=== PATIENT | female | born 1955 | race Caucasian/White ===

== ENCOUNTER 2018-12-31 00:35 | Emergency (ER) | payer MEDICARE ==
[~2018-12-31] VITALS: Ht 160 cm; Wt 45.4 kg
[~2018-12-31 00:35] MED LIST: ALBU0.632 IH; AMIT25TA9 PO; CALC-80 PO; CEFD300C3 PO; CLPD75T PO; DESV100T PO; E400C PO; HYDR-2890 PO; KRIL1CAP PO; LOVA20TA2 PO; METH4TAB PO; MULT-974 PO; OMEG1CAP51 PO; OXYC-272 PO; OXYC20TA14 PO; PREG300C PO; RT-COMBINH IH; TIOT18CA IH; TRAZ-144 PO; VARE1TAB17 PO; VITA80006 PO
[2018-12-31] MEDS ORDERED: morphine INJ 10 MG/ML 1ML (SYR OR VIAL) IVP ONE (01:00)
[2018-12-31] MEDS ORDERED: ONDANSETRON 4 MG/2 ML (SDV) Z0FRAN ONE (01:06)
[2018-12-31] MEDS ORDERED: ONDANSETRON 4 MG/2 ML (SDV) Z0FRAN IVP ONE ×2 (01:15→03:45)
[2018-12-31 01:29] LABS: HEMATOCRIT 41 % (35-52); HEMOGLOBIN 12.8 G/DL (11.5-16.0); MEAN CORPUSCULAR HEMOGLOBIN 28 PG (25-34); MEAN CORPUSCULAR HGB CONC 32 G/DL (32-36); MEAN CORPUSCULAR VOLUME 89 FL (80-99); PLATELET COUNT 298 10^3/uL (130-400); RED CELL DISTRIBUTION WIDTH 14.7 % (10.0-14.5); WHITE BLOOD COUNT 8.7 10^3/uL (4.3-11.0)
[2018-12-31 01:30] LABS: BASOPHILS % (AUTO) 0 % (0-10); EOSINOPHILS # (AUTO) 0.3 10^3/uL (0.0-0.3); EOSINOPHILS % (AUTO) 3 % (0-10); LYMPHOCYTES # (AUTO) 2.4 X 10^3 (1.0-4.0); LYMPHOCYTES % (AUTO) 27 % (12-44); MEAN PLATELET VOLUME 9.9 FL (7.4-10.4); MONOCYTES # (AUTO) 1.1 X 10^3 (0.0-1.0); MONOCYTES % (AUTO) 13 % (0-12); NEUTROPHILS # (AUTO) 4.9 X 10^3 (1.8-7.8); NEUTROPHILS % (AUTO) 57 % (42-75)
--- NOTE | 2018-12-31 01:35 | ED Headache ---
General Chief Complaint: Head/Cervical Problems Stated Complaint: HEADACHE Source: patient Exam Limitations: no limitations History of Present Illness Date Seen by Provider: Dec 31, 2018 Time Seen by Provider: 00:38 Initial Comments Here with report of headache over the last 2-3 days. Also has cough. Patient is a poor historian. Family reports that she's not been feeling well and complaining of a headache. Patient states the headaches frontal and persistent. She does smoke. She is very thin appearing. Does have nausea but denies vomiting. Feels weak and is irritable. Timing/Duration: increasing, other Severity/Quality: moderate, severe, pressure Location: frontal Prior Headaches/Recent Trauma: no recent headache/trauma Modifying Factors: improves with rest Associated Symptoms: confusion; No fever/chills, No loss of consciousness; jose alberto sea/vomiting; No nasal congestion, No stiff neck, No vision changes Allergies and Home Medications Allergies Coded Allergies: No Known Drug Allergies (Unverified , 07/25/13) Home Medications Albuterol Sulfate 0.63 Mg/3 Ml Vial.neb, 3 ML IH Q4H PRN for SHORTNESS OF BREATH, (Reported) PRN SHORTNESS OF BREATH Amitriptyline Hcl 25 Mg Tablet, 25 MG PO HS, (Reported) Calcium Carbonate/Vitamin D3 1 Each Tablet, 1 TAB PO DAILY, (Reported) Desvenlafaxine Succinate 100 Mg Tab.sr.24h, 100 MG PO HS, (Reported) Hydrocodone Bit/Acetaminophen 1 Each Tablet, 1 TAB PO Q4H PRN for PAIN, (Reported) PRN PAIN Ipratropium/Albuterol Sulfate 14.7 Gm Aer.w.adap, 2 PUFF IH Q6HR PRN for SHORTNESS OF BREATH, (Reported) PRN SHORTNESS OF BREATH Lovastatin 20 Mg Tablet, 20 MG PO HS, (Reported) Multivitamin 1 Each Tablet, 1 TAB PO DAILY, (Reported) Oxycodone Hcl 20 Mg Tablet, 20 MG PO Q6H PRN for PAIN, (Reported) PRN PAIN Oxycodone Hcl/Acetaminophen 1 Tab Tablet, 1-2 TAB PO Q4H Prescribed by: KWABENA ZHENG on 07/31/13 0430 Pregabalin 300 Mg Capsule, 300 MG PO BID, (Reported) Tiotropium [place] 18 Mcg Cap.w.dev, 1 PUFF IH DAILY, (Reported) Trazodone Hcl 50 Mg Tablet, 50 MG PO HS, (Reported) Varenicline Tartrate 1 Mg Tablet, 1 MG PO BID, (Reported) Vitamin A 8,000 Unit Capsule, 8,000 UNIT PO DAILY, (Reported) Vitamin E Acetate 400 Unit Capsule, 400 UNIT PO DAILY, (Reported) Patient Home Medication List Home Medication List Reviewed: Yes Review of Systems Review of Systems Constitutional: see HPI; No chills, No fever Eyes: No Symptoms Reported Ears, Nose, Mouth, Throat: no symptoms reported Respiratory: cough, short of breath Cardiovascular: No chest pain, No edema Gastrointestinal: No abdominal pain; nausea; No vomiting Genitourinary: no symptoms reported Musculoskeletal: no symptoms reported Skin: no symptoms reported Psychiatric/Neurological: See HPI, Anxiety, Headache All Other Systems Reviewed Negative Unless Noted: Yes Past Guisbbs-Svrmkg-Bzectm Hx Past Med/Social Hx: Reviewed Nursing Past Med/Soc Hx Patient Social History Alcohol Use: Denies Use Smoking Status: Current Everyday Smoker Immunizations Up To Date Tetanus Booster (TDap): More than 5yrs Date of Influenza Vaccine: Jul 22, 2013 Past Medical History Surgeries: Yes (Brain) Orthopedic Respiratory: Yes Asthma, Pneumonia, COPD Reproductive Disorders: No Musculoskeletal: Yes Arthritis, Spasms (restless leg) Family Medical History Reviewed Nursing Family Hx Cancer 09 SISTER (BREAST) Family history: Arthritis 03 FATHER 03 MOTHER Family history: Cardiovascular disease 03 FATHER 03 MOTHER Family history: Hypertension 03 MOTHER Heart disease 03 MOTHER History of - respiratory disease 03 FATHER 03 MOTHER 09 BROTHER 09 SISTER Myocardial infarction 03 FATHER 03 MOTHER No Family History of: Abdominal aortic aneurysm Alcoholism Congestive heart failure Dementia Family history: Allergy Family history: Alzheimer's disease Family history: Asthma Family history: Diabetes mellitus Family history: Glaucoma Family history: Thyroid disorder Hereditary disease History of - anemia Kidney disease Parkinson's disease Prostate cancer Psychotic disorder Seizure disorder Stroke Physical Exam Vital Signs Vital Signs - First Documented 12/31/18 00:39 Temp 99.3 Pulse 65 Resp 24 B/P (MAP) 149/64 (92) Pulse Ox 83 O2 Delivery Room Air Capillary Refill : Height, Weight, BMI Height: 5'2.00" Weight: 116lbs. oz. 52.279881ho; BMI Method: General Appearance: moderate distress, thin HEENT: PERRL/EOMI, pharynx normal Neck: non-tender, full range of motion, supple, normal inspection Cardiovascular: regular rate, rhythm, no murmur Respiratory: no accessory muscle use, crackles, rhonchi, wheezing, expiration Gastrointestinal: non tender, soft Back: normal inspection, no CVA tenderness, no vertebral tenderness Extremities: non-tender, normal inspection Psychiatric: oriented x 3, lethargic Crainal Nerves: normal hearing, normal speech, PERRL Coordination/Gait: normal gait Motor/Sensory: no motor deficit, no sensory deficit Skin: normal color, warm/dry Progress/Results/Core Measures Results/Orders Lab Results Laboratory Tests Test 12/31/18 00:53 12/31/18 00:55 12/31/18 00:59 12/31/18 01:27 Range/Units Blood Gas Puncture Site LEFT RADIAL Blood Gas Patient Temperature 99.1 Arterial Blood pH 7.32 *L 7.37-7.43 Arterial Blood Partial Pressure CO2 72 *H 35-45 MMHG Arterial Blood Partial Pressure O2 69 L 79-93 MMHG Arterial Blood HCO3 37 H 23-27 MMOL/L Arterial Blood Total CO2 39.3 H 21.0-31.0 MMOL/L Arterial Blood Base Excess 8.5 H -2.5-2.5 MMOL/L Hemant Test POSITIVE Blood Gas Ventilator Setting NO Blood Gas Inspired Oxygen 3 White Blood Count 8.7 4.3-11.0 10^3/uL Red Blood Count 4.53 4.35-5.85 10^6/uL Hemoglobin 12.8 11.5-16.0 G/DL Hematocrit 41 35-52 % Mean Corpuscular Volume 89 80-99 FL Mean Corpuscular Hemoglobin 28 25-34 PG Mean Corpuscular Hemoglobin Concent 32 32-36 G/DL Red Cell Distribution Width 14.7 H 10.0-14.5 % Platelet Count 298 130-400 10^3/uL Mean Platelet Volume 9.9 7.4-10.4 FL Neutrophils (%) (Auto) 57 42-75 % Lymphocytes (%) (Auto) 27 12-44 % Monocytes (%) (Auto) 13 H 0-12 % Eosinophils (%) (Auto) 3 0-10 % Basophils (%) (Auto) 0 0-10 % Neutrophils # (Auto) 4.9 1.8-7.8 X 10^3 Lymphocytes # (Auto) 2.4 1.0-4.0 X 10^3 Monocytes # (Auto) 1.1 H 0.0-1.0 X 10^3 Eosinophils # (Auto) 0.3 0.0-0.3 10^3/uL Basophils # (Auto) 0.0 0.0-0.1 10^3/uL Prothrombin Time 13.2 12.2-14.7 SEC INR Comment 1.0 0.8-1.4 Activated Partial Thromboplast Time 32 24-35 SEC Sodium Level 139 135-145 MMOL/L Potassium Level 4.2 3.6-5.0 MMOL/L Chloride Level 98 98-107 MMOL/L Carbon Dioxide Level 33 H 21-32 MMOL/L Anion Gap 8 5-14 MMOL/L Blood Urea Nitrogen 18 7-18 MG/DL Creatinine 0.74 0.60-1.30 MG/DL Estimat Glomerular Filtration Rate > 60 BUN/Creatinine Ratio 24 Glucose Level 138 H 70-105 MG/DL Calcium Level 9.3 8.5-10.1 MG/DL Corrected Calcium 9.1 8.5-10.1 MG/DL Total Bilirubin 0.2 0.1-1.0 MG/DL Aspartate Amino Transf (AST/SGOT) 18 5-34 U/L Alanine Aminotransferase (ALT/SGPT) 11 0-55 U/L Alkaline Phosphatase 75 40-136 U/L Troponin I < 0.30 <0.30 NG/ML Total Protein 7.3 6.4-8.2 GM/DL Albumin 4.2 3.2-4.5 GM/DL Lactic Acid Level 0.48 L 0.50-2.00 MMOL/L My Orders Orders - ALEX AC MD Arterial Blood Gas (12/31/18 00:53) Cbc With Automated Diff (12/31/18 00:53) Comprehensive Metabolic Panel (12/31/18 00:53) Lactic Acid Analyzer (12/31/18 00:53) Protime With Inr (12/31/18 00:53) Partial Thromboplastin Time (12/31/18 00:53) Ua Culture If Indicated (12/31/18 00:53) Blood Culture (12/31/18 00:53) Troponin I (12/31/18 00:53) Ct Head Wo-R/O Stroke (12/31/18 00:53) Chest 1 View Ap/Pa Only (12/31/18 00:53) Morphine Injection (Morphine Injection (12/31/18 01:00) Ekg Tracing (12/31/18 00:53) Monitor-Rhythm Ecg Trace Only (12/31/18 00:53) Ondansetron Injection (Zofran Injectio (12/31/18 01:15) Ondansetron Injection (Zofran Injectio (12/31/18 01:06) Fentanyl Injection (Sublimaze Injection (12/31/18 02:15) Albuterol/Ipra Inhalation Soln (Duoneb I (12/31/18 02:02) Albuterol Pre-Mix Nebs (Rt) (Proventil (12/31/18 02:49) Methylprednisolone Sod Succ (Solu-Medrol (12/31/18 02:49) Svn Small Volume Nebulizer (12/31/18 02:49) Ketorolac Injection (Toradol Injection) (12/31/18 03:31) Ondansetron Injection (Zofran Injectio (12/31/18 03:45) Oxycodone Immediate Rel Tablet (Oxyir Ta (12/31/18 03:45) Medications Given in ED Current Medications Medications Dose Ordered Sig/Inder Route Start Time Stop Time Status Last Admin Dose Admin Albuterol/ Ipratropium 3 ml STK-MED ONCE .ROUTE 12/31/18 02:02 12/31/18 02:10 DC 12/31/18 02:14 3 ML Fentanyl Citrate 50 mcg ONCE ONCE IVP 12/31/18 02:15 12/31/18 02:16 DC 12/31/18 02:14 50 MCG Morphine Sulfate 2 mg ONCE ONCE IVP 12/31/18 01:00 12/31/18 01:01 DC 12/31/18 01:17 2 MG Ondansetron HCl 4 mg ONCE ONCE IVP 12/31/18 01:15 12/31/18 01:16 DC 12/31/18 01:17 4 MG Ondansetron HCl 4 mg ONCE ONCE IVP 12/31/18 03:45 12/31/18 03:46 DC 12/31/18 03:35 4 MG Vital Signs/I&O 12/31/18 00:39 Temp 99.3 Pulse 65 Resp 24 B/P (MAP) 149/64 (92) Pulse Ox 83 O2 Delivery Room Air Progress Progress Note : Progress Note Seen and evaluated. IV, labs, chest x-ray, CT head, ABG ordered. O2 applied as initial O2 sat was 82% on room air. Initially applied it 4 L titrated to 3 L. Morphine 2 mg IV for headache and Zofran 4 mg IV for nausea ordered. Monitor patient. Duo neb ordered. 0325: We have initiated albuterol neb 2 and given Solu-Medrol 125 mg IV. Patient is supposed to be on oxygen at home and she was not wearing that tonight. She does continue to smoke. This seems to be more related to COPD exacerbation for which she is improving dramatically from. CT scan does not show any significant abnormalities other than the known previous history of brain surgery. She is reporting some nausea again. We will repeat Zofran and give Toradol. 0342: Patient admits that she has not been taking her long-term narcotic for the last 3 days because she's trying to get off of it. We will give oxycodone/acetaminophen 5/325 one tab by mouth. 2 tabs by mouth were ordered but she only wanted to do one as she's tried to get off the narcotic. We did discuss do believe this is largely the cause of her nausea, vomiting and headache and she agrees. She does have a COPD exacerbation as well. We will treat that all outpatient. I did discuss with her about weaning her narcotic and she will talk to her doctor about that as well. Discharged home with return precautions. Patient and family verbalize understanding instructions and agreement with plan. Initial ECG Impression Date: Dec 31, 2018 Initial ECG Impression Time: 02:00 Initial ECG Rate: 68 Initial ECG Rhythm: Normal Sinus Initial ECG Comparisson: No Previous ECG Available Comment Sinus rhythm with normal axis. No evidence of ST elevation RI. Left atrial enlargement. No previous available for comparison. Interpreted by me. Diagnostic Imaging Diagonstic Imaging: Xray Plain Films/CT/US/NM/MRI: chest Comments Chronic lung disease but no acute findings. Reviewed: Reviewed by Me Departure Impression Primary Impression: COPD with acute exacerbation Additional Impressions: Headache Qualified Codes: G44.059 - Short lasting unilateral neuralgiform headache with conjunctival injection and tearing (SUNCT), not intractable Narcotic withdrawal Disposition: HOME, SELF-CARE Condition: Stable Departure-Patient Inst. Decision time for Depature: 03:53 Referrals: MATTHEW SON DO (PCP/Family) Primary Care Physician Patient Instructions: COPD Including Emphysema (DC), Headache, Adult (DC), Prescription Drug Withdrawal (DC) Add. Discharge Instructions: All discharge instructions reviewed with patient and/or family. Voiced understanding. Take medications as directed. You should slowly wean off of your narcotics. Continue albuterol nebulizer and/or inhaler as needed for breathing. You should quit smoking. Return for worse pain, fever, vomiting, weakness, breathing problems or other concerns as needed. Scripts Prednisone (Prednisone) 20 Mg Tab 40 MG PO DAILY, #8 TAB 0 Refills Prov: ALEX AC MD 12/31/18 Ondansetron (Ondansetron Odt) 4 Mg Tab.rapdis 4 MG PO Q6H PRN for NAUSEA/VOMITING, #12 TAB 0 Refills Prov: ALEX AC MD 12/31/18 ALEX AC MD Dec 31, 2018 01:35
[2018-12-31 01:41] LABS: SODIUM 139 MMOL/L (135-145)
[2018-12-31 01:42] LABS: ALANINE AMINOTRANSFERASE 11 U/L (0-55); ALBUMIN 4.2 GM/DL (3.2-4.5); ALKALINE PHOSPHATASE 75 U/L (40-136); BILIRUBIN,TOTAL 0.2 MG/DL (0.1-1.0); BUN/CREATININE RATIO 24; CALCIUM 9.3 MG/DL (8.5-10.1); CARBON DIOXIDE 33 MMOL/L (21-32); CHLORIDE 98 MMOL/L (98-107); CREATININE SERUM 0.74 MG/DL (0.60-1.30); GFR ESTIMATED > 60; GLUCOSE 138 MG/DL (70-105); POTASSIUM 4.2 MMOL/L (3.6-5.0); TOTAL PROTEIN 7.3 GM/DL (6.4-8.2)
[2018-12-31 01:52] LABS: PROTHROMBIN TIME PATIENT 13.2 SEC (12.2-14.7)
[2018-12-31] MEDS ORDERED: RT-ALBUTEROL/IPRATROPIUM 3 ML (DUONEB) VIAL ONE (02:02)
[2018-12-31] MEDS ORDERED: fentaNYL INJECTION 100 MCG/2 ML AMP IVP ONE (02:15)
[2018-12-31] MEDS ORDERED: methylPREDNISolone 125 MG (Solu-MEDROL) VIAL IV STA (02:49)
[2018-12-31] MEDS ORDERED: RT-ALBUTEROL SULF 2.5 MG/3 ML PRE-MIX VIAL INH STA (02:49)
[2018-12-31 02:59] LABS: ALLENS TEST POSITIVE; INSPIRED O2 3; PATIENT TEMP 99.1; VENTILATOR NO
[2018-12-31] MEDS ORDERED: KETOROLAC 30 MG/ML VIAL IVP STA (03:31)
[2018-12-31 03:48] LABS: ABG PH 7.34 (7.37-7.43)
[2018-12-31 03:49] LABS: ABG PCO2 66 MMHG (35-45); ABG PO2 148 MMHG (79-93)
[2018-12-31 03:50] LABS: ABG BASE EXCESS 7.7 MMOL/L (-2.5-2.5); ABG OXYGEN SATURATION 99 % (94-100); ABG TCO2 37.6 MMOL/L (21.0-31.0)
[2018-12-31] MEDS ORDERED: PRD20T PO (03:54)
[2018-12-31] MEDS ORDERED: ONDA4TAB11 PO (03:54)
[2018-12-31 04:19] VITALS: BP 144/59
--- NOTE | 2018-12-31 07:05 | Diagnostic Imaging Report ---
PROCEDURE: CT head wo r/o stroke. TECHNIQUE: Multiple contiguous axial images were obtained through the brain without the use of intravenous contrast. Auto Exposure Controls were utilized during the CT exam to meet ALARA standards for radiation dose reduction. INDICATION: Headache and confusion. No [facility] report is available for comparison. FINDINGS: The ventricles and sulci are within normal limits. There is no hydrocephalus. There is no midline shift. There is no intracranial mass, hemorrhage or extra-axial fluid collection. Calvarium is intact. Sinuses and mastoid air cells are clear apart from minimal mucosal thickening in the left maxillary sinus. There is no CT evidence of a transcortical infarct. There has been previous right frontal craniotomy. IMPRESSION: No acute intracranial abnormality Mild left maxillary sinus disease Dictated by: Dictated on workstation # [id number]
--- NOTE | 2018-12-31 08:10 | Diagnostic Imaging Report ---
EXAMINATION: Chest radiograph, portable AP view. DATE: December 31, 2018 at 0128 hours. INDICATION: 63-year-old female, shortness of breath. Decreased oxygen saturations. COMPARISON: None. FINDINGS: Heart size is within normal limits. There is no identified pneumothorax. There is no large pleural effusion. There are streaky bilateral parahilar opacities. Comparison imaging is not available to assess for potential stability. There is partially imaged cervical spine hardware. IMPRESSION: 1. Bilateral streaky parahilar opacities of uncertain chronicity given lack of comparison imaging. Central pulmonary edema, atypical infection, or potentially chronic changes would be considered. Dictated by: Dictated on workstation # [id number]
== END 2018-12-31 04:19 | disposition home or self-care (01) ==
LOC: EDUNIT# 00:35 → ER FS 00:37
DX: J44.1 Chronic obstructive pulmonary disease with (acute) exacerbation (principal); R51 Headache; F11.23 Opioid dependence with withdrawal; J45.909 Unspecified asthma, uncomplicated; F17.200 Nicotine dependence, unspecified, uncomplicated; Z80.3 Family history of malignant neoplasm of breast; Z82.49 Family history of ischemic heart disease and other diseases of the circulatory system
CPT/HCPCS: 36415; 70450; 71045; 80053; 82805; 83605; 84484; 85025; 85610; 85730; 87040; 93005; 93041; 94640

== ENCOUNTER 2019-08-02 21:18 | Inpatient (IN) | payer MEDICARE ==
[~2019-08-02] VITALS: Ht 157 cm; Wt 46.5 kg
[~2019-08-02 21:18] MED LIST changes: +ONDA4TAB11 PO; +PRD20T PO
--- OUTSIDE RECORDS SUMMARY | 2019-08-02 21:23 | XMS REPORT | Continuity of Care Document ---
Author Organization Unknown Address Unknown Phone Unavailable Allergies Active Description Code Type Severity Reaction Onset Reported/Identified Relationship to Patient Clinical Status Yes No Known Drug Allergies [id number] Drug Allergy Unknown N/A 07/25/2013 Medications There is no data. Problems Date Dx Coded Attending Type Code Diagnosis Diagnosed By 12/31/2018 ALEX AC MD Ot F11.23 OPIOID DEPENDENCE WITH WITHDRAWAL 12/31/2018 ALEX AC MD Ot F17.200 NICOTINE DEPENDENCE, UNSPECIFIED, UNCOMP 12/31/2018 ALEX AC MD Ot J44.1 CHRONIC OBSTRUCTIVE PULMONARY DISEASE W 12/31/2018 ALEX AC MD Ot J45.909 UNSPECIFIED ASTHMA, UNCOMPLICATED 12/31/2018 ALEX AC MD Ot R51 HEADACHE 12/31/2018 ALEX CA MD Ot Z80.3 FAMILY HISTORY OF MALIGNANT NEOPLASM OF 12/31/2018 ALEX AC MD Ot Z82.49 FAMILY HX OF ISCHEM HEART DIS AND OTH DI 01/03/2019 ALEX AC MD Ot F11.23 OPIOID DEPENDENCE WITH WITHDRAWAL 01/03/2019 ALEX AC MD Ot F17.200 NICOTINE DEPENDENCE, UNSPECIFIED, UNCOMP 01/03/2019 ALEX AC MD Ot J44.1 CHRONIC OBSTRUCTIVE PULMONARY DISEASE W 01/03/2019 ALEX AC MD Ot J45.909 UNSPECIFIED ASTHMA, UNCOMPLICATED 01/03/2019 ALEX AC MD Ot R51 HEADACHE 01/03/2019 ALEX AC MD Ot Z80.3 FAMILY HISTORY OF MALIGNANT NEOPLASM OF 01/03/2019 ALEX AC MD Ot Z82.49 FAMILY HX OF ISCHEM HEART DIS AND OTH DI Procedures There is no data. Results Test Result Range Arterial blood gas measurement - 9 00:53 Blood pCO2 66 mm[Hg] 35-45 Blood pO2 148 mm[Hg] 79-93 Arterial blood bicarbonate measurement (moles/volume) 36 mmol/L 23-27 Arterial blood base excess by calculation 7.7 mmol /L -2.5-2.5 Arterial blood oxygen saturation measurement 99 % 94-100 * Inhaled oxygen flow rate 3 NRG Arterial blood pH measurement with patient temperature correction 7.34 7.37-7.43 Arterial blood carbon dioxide, total measurement (mole s/volume) 37.6 mmol/L 21.0-31.0 Body site rt radial NRG Assessment of wrist artery patency prior to arterial p uncture POSITIVE NRG Setting of ventilation mode NO NR G Measurement of body temperature 99.1 NRG Bacterial blood culture - 12/31/18 00:53 Bacterial blood culture NG NRG Complete blood count (CBC) with automate d white blood cell (WBC) differential - 12/31/18 00:55 Blood leukocytes automated count (number/volume) 8.7 10*3/uL 4.3-11.0 Blood erythrocytes automated count (number/volume) 4.53 10*6/uL 4.35-5.85 Venous blood hemoglobin measurement (mass/volume) 12.8 g/dL 11.5-16.0 Blood hematocrit (volume fraction) 41 % 35-52 Automated erythrocyte mean corpuscular volume 89 [ foz_us] 80-99 Automated erythrocyte mean corpuscular h emoglobin (mass per erythrocyte) 28 pg 25-34 Automated erythrocyte mean corpuscular h emoglobin concentration measurement (mass/volume) 32 g/dL 32-36 Automated erythrocyte distribution width ratio 14. 7 % 10.0- 14.5 Automated blood platelet count (count/volume) 298 10*3/uL 130-400 Automated blood platelet mean volume measurement 9.9 [foz_us] 7.4-10.4 Automated blood neutrophils/100 leukocytes 57 % 42-75 Automated blood lymphocytes/100 leukocytes 27 % 12-44 Blood monocytes/100 leukocytes 13 % 0-12 Automated blood eosinophils/100 leukocytes 3 % 0-10 Automated blood basophils/100 leukocytes 0 % 0-10 Blood neutrophils automated count (number/volume) 4.9 10*3 1.8-7.8 Blood lymphocytes automated count (number/volume) 2.4 10*3 1.0-4.0 Blood monocytes automated count (number/volume) 1. 1 10*3 0.0-1.0 Automated eosinophil count 0.3 10*3/uL 0 .0-0.3 Automated blood basophil count (count/volume) 0.0 10*3/uL 0.0-0.1 Comprehensive metabolic panel - 12/31/18 00:59 Serum or plasma sodium measurement (moles/volume) 139 mmol/L 135-145 Serum or plasma potassium measurement (moles/volume) 4.2 mmol/L 3.6-5.0 Serum or plasma chloride measurement (moles/volume) 98 mmol/L 98-107 Carbon dioxide 33 mmol/L 21-32 Serum or plasma anion gap determination (moles/volume) 8 mmol/L 5-14 Serum or plasma urea nitrogen measurement (mass/volume ) 18 mg/dL 7-18 Serum or plasma creatinine measurement (mass/volume) 0.74 mg/dL 0.60-1.30 Serum or plasma urea nitrogen/creatinine mass ratio 24 NRG Serum or plasma creatinine measurement w ith calculation of estimated glomerular filtration rate > NRG Serum or plasma glucose measurement (mass/volume) 138 mg/dL 70-105 Serum or plasma calcium measurement (mass/volume) 9.3 mg/dL 8.5-10.1 Serum or plasma total bilirubin measurement (mass/volu me) 0.2 mg/dL 0.1-1.0 Serum or plasma alkaline phosphatase rob surement (enzymatic activity/volume) 75 U/L 40-136 Serum or plasma aspartate aminotransfera se measurement (enzymatic activity/volume) 18 U/L 5-34 Serum or plasma alanine aminotransferase measurement (enzymatic activity/volume) 11 U/L 0-55 Serum or plasma protein measurement (mass/volume) 7.3 g/dL 6.4-8.2 Serum or plasma albumin measurement (mass/volume) 4.2 g/dL 3.2-4.5 CALCIUM CORRECTED 9.1 mg/dL 8.5-10.1 Serum or plasma troponin i.cardiac measu rement (mass/volume) - 12/31/18 00:59 Serum or plasma troponin i.cardiac measurement (mass/v olume) < ng/mL <0.30 PT panel in platelet poor plasma by coag ulation assay - 12/31/18 00:59 Prothrombin time (PT) in platelet poor plasma by coagu lation assay 13.2 s 12.2-14.7 INR in platelet poor plasma or blood by coagulation as say 1.0 0.8-1.4 Activated partial thromboplastin time (a PTT) in platelet poor plasma bycoagulation assay - 12/31/18 00:59 Activated partial thromboplastin time (a PTT) in platelet poor plasma bycoagulation assay 32 s 24-35 Bacterial blood culture - 12/31/18 01:07 Bacterial blood culture NG NRG Blood lactic acid measurement (moles/vol ume) - 12/31/18 01:27 Blood lactic acid measurement (moles/volume) 0.48 mmol/L 0.50-2.00 Encounters ACCT No. Visit Date/Time Discharge Status Pt. Type Provider Facility Loc./Unit Complaint [id number] 12/31/2018 00:37:00 019 04:19:00 DIS Emergency OSORIO COLLINS, ALEX Mccullough [facility] ER FS HEADACHE [id number] 07/30/2013 10:15:00 014 13:10:00 DIS Inpatient [id number] 07/25/2013 09:11:00 014 23:59:59 CLS Outpatient [id number] 06/26/2013 12:19:00 014 23:59:59 CLS Outpatient
--- NOTE | 2019-08-02 21:30 | ED General ---
General Chief Complaint: Neurological Problems Stated Complaint: SEIZURE Source of Information: Patient, EMS History of Present Illness Date Seen by Provider: Aug 02, 2019 Time Seen by Provider: 21:20 Initial Comments 64-year-old female brought in because she "doesn't feel good" and feels like her coordination is off. He is reports that she had "seizure-like activity" meaning she had some shaking at home. Patient has chronic cough. Patient does not expand on her symptoms as had a "she just doesn't feel good" patient has a chronic cough. Patient does have a history of COPD. Allergies and Home Medications Allergies Coded Allergies: No Known Drug Allergies (Unverified , 07/25/13) Home Medications Albuterol Sulfate 0.63 Mg/3 Ml Vial.neb, 3 ML IH Q4H PRN for SHORTNESS OF BREATH, (Reported) PRN SHORTNESS OF BREATH Amitriptyline Hcl 25 Mg Tablet, 25 MG PO HS, (Reported) Calcium Carbonate/Vitamin D3 1 Each Tablet, 1 TAB PO DAILY, (Reported) Desvenlafaxine Succinate 100 Mg Tab.sr.24h, 100 MG PO HS, (Reported) Hydrocodone Bit/Acetaminophen 1 Each Tablet, 1 TAB PO Q4H PRN for PAIN, (Reported) PRN PAIN Ipratropium/Albuterol Sulfate 14.7 Gm Aer.w.adap, 2 PUFF IH Q6HR PRN for SHORTNESS OF BREATH, (Reported) PRN SHORTNESS OF BREATH Lovastatin 20 Mg Tablet, 20 MG PO HS, (Reported) Multivitamin 1 Each Tablet, 1 TAB PO DAILY, (Reported) Ondansetron 4 Mg Tab.rapdis, 4 MG PO Q6H PRN for NAUSEA/VOMITING Prescribed by: ALEX AC on 12/31/18353 Oxycodone Hcl 20 Mg Tablet, 20 MG PO Q6H PRN for PAIN, (Reported) PRN PAIN Oxycodone Hcl/Acetaminophen 1 Tab Tablet, 1-2 TAB PO Q4H Prescribed by: KWABENA ZHENG on 07/31/13 043 Prednisone 20 Mg Tab, 40 MG PO DAILY Prescribed by: ALEX AC on 12/31/18353 Pregabalin 300 Mg Capsule, 300 MG PO BID, (Reported) Tiotropium [place] 18 Mcg Cap.w.dev, 1 PUFF IH DAILY, (Reported) Trazodone Hcl 50 Mg Tablet, 50 MG PO HS, (Reported) Varenicline Tartrate 1 Mg Tablet, 1 MG PO BID, (Reported) Vitamin A 8,000 Unit Capsule, 8,000 UNIT PO DAILY, (Reported) Vitamin E Acetate 400 Unit Capsule, 400 UNIT PO DAILY, (Reported) Patient Home Medication List Home Medication List Reviewed: Yes Review of Systems Review of Systems Constitutional: see HPI, malaise Respiratory: cough Cardiovascular: no symptoms reported Gastrointestinal: no symptoms reported Genitourinary: no symptoms reported Psychiatric/Neurological: See HPI Past Nvoixre-Mozomq-Pyfhut Hx Past Med/Social Hx: Reviewed Nursing Past Med/Soc Hx Patient Social History Type Used: Cigarettes Physical Abuse: No Sexual Abuse: No Mistreated: No Fear: No Immunizations Up To Date Tetanus Booster (TDap): More than 5yrs Date of Influenza Vaccine: Jul 22, 2013 Past Medical History Surgeries: Yes (Brain) Orthopedic Respiratory: Yes Asthma, Pneumonia, COPD Cardiac: Yes (WAS TOLD SHE HAD A HEART MURMUR ONE TIME SEVERAL YRS AGO, ) 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) Reproductive Disorders: No Gastrointestinal: No Musculoskeletal: Yes Arthritis, Spasms Endocrine: No Cancer: No Psychosocial: No Integumentary: No Blood Disorders: No Family Medical History Cancer 09 SISTER (BREAST) Family history: Arthritis 03 FATHER 03 MOTHER Family history: Cardiovascular disease 03 FATHER 03 MOTHER Family history: Hypertension 03 MOTHER Heart disease 03 MOTHER History of - respiratory disease 03 FATHER 03 MOTHER 09 BROTHER 09 SISTER Myocardial infarction 03 FATHER 03 MOTHER No Family History of: Abdominal aortic aneurysm Alcoholism Congestive heart failure Dementia Family history: Allergy Family history: Alzheimer's disease Family history: Asthma Family history: Diabetes mellitus Family history: Glaucoma Family history: Thyroid disorder Hereditary disease History of - anemia Kidney disease Parkinson's disease Prostate cancer Psychotic disorder Seizure disorder Stroke Physical Exam Vital Signs Vital Signs - First Documented 08/02/19 21:21 Temp 37.0 Pulse 123 Resp 17 B/P (MAP) 121/72 (88) O2 Delivery Room Air Capillary Refill : Height, Weight, BMI Height: 5'3.00" Weight: 100lbs. 0oz. [id number]; BMI Method:Stated General Appearance: No Apparent Distress, Cachetic Respiratory: Lungs Clear, Normal Breath Sounds Cardiovascular: No Edema, Tachycardia Gastrointestinal: Non Tender, Soft Neurologic/Psychiatric: Alert, Oriented x3, No Motor/Sensory Deficits, cat tender II- XII Norm as Tested Skin: Normal Color, Warm/Dry Progress/Results/Core Measures Suspected Sepsis SIRS Temperature: Pulse: Respiratory Rate: Laboratory Tests 08/02/19 21:35: White Blood Count 14.7H Blood Pressure / Mean: Laboratory Tests 08/02/19 21:35: Creatinine 0.76, Platelet Count 401H, Total Bilirubin < 0.2 Results/Orders Lab Results Laboratory Tests Test 08/02/19 19:35 08/02/19 21:35 Range/Units White Blood Count 14.7 H 4.3-11.0 10^3/uL Red Blood Count 4.52 4.35-5.85 10^6/uL Hemoglobin 13.9 11.5-16.0 G/DL Hematocrit 43 35-52 % Mean Corpuscular Volume 95 80-99 FL Mean Corpuscular Hemoglobin 31 25-34 PG Mean Corpuscular Hemoglobin Concent 32 32-36 G/DL Red Cell Distribution Width 13.0 10.0-14.5 % Platelet Count 401 H 130-400 10^3/uL Mean Platelet Volume 8.7 7.4-10.4 FL Neutrophils (%) (Auto) 64 42-75 % Lymphocytes (%) (Auto) 24 12-44 % Monocytes (%) (Auto) 10 0-12 % Eosinophils (%) (Auto) 1 0-10 % Basophils (%) (Auto) 1 0-10 % Neutrophils # (Auto) 9.4 H 1.8-7.8 X 10^3 Lymphocytes # (Auto) 3.6 1.0-4.0 X 10^3 Monocytes # (Auto) 1.4 H 0.0-1.0 X 10^3 Eosinophils # (Auto) 0.2 0.0-0.3 10^3/uL Basophils # (Auto) 0.1 0.0-0.1 10^3/uL Neutrophils % (Manual) 67 % Lymphocytes % (Manual) 9 % Monocytes % (Manual) 14 % Eosinophils % (Manual) 2 % Reactive Lymphocytes 8 % Toxic Granulation 2+ Clumped Platelets SLIGHT Poikilocytosis SLIGHT Erythrocyte Sedimentation Rate 9 0-30 MM/HR D-Dimer 0.44 0.00-0.49 UG/ML Sodium Level 139 135-145 MMOL/L Potassium Level 4.8 3.6-5.0 MMOL/L Chloride Level 95 L 98-107 MMOL/L Carbon Dioxide Level 27 21-32 MMOL/L Anion Gap 17 H 5-14 MMOL/L Blood Urea Nitrogen 24 H 7-18 MG/DL Creatinine 0.76 0.60-1.30 MG/DL Estimat Glomerular Filtration Rate > 60 BUN/Creatinine Ratio 32 Glucose Level 157 H 70-105 MG/DL Calcium Level 9.6 8.5-10.1 MG/DL Corrected Calcium 9.4 8.5-10.1 MG/DL Total Bilirubin < 0.2 0.1-1.0 MG/DL Direct Bilirubin 0.2 0.0-0.3 MG/DL Indirect Bilirubin 0.0 MG/DL Aspartate Amino Transf (AST/SGOT) 22 5-34 U/L Alanine Aminotransferase (ALT/SGPT) 22 0-55 U/L Alkaline Phosphatase 60 40-136 U/L Troponin I < 0.30 <0.30 NG/ML Total Protein 7.3 6.4-8.2 GM/DL Albumin 4.3 3.2-4.5 GM/DL Serum Alcohol < 10 <10 MG/DL My Orders Orders - LEON,KEN L DO Ct Head Wo-R/O Stroke (08/02/19 21:30) Chest 1 View Ap/Pa Only (08/02/19 21:30) Cbc With Automated Diff (08/02/19 21:30) Comprehensive Metabolic Panel (08/02/19 21:30) Ferritin (08/02/19 21:30) Fibrin Degradation Products (08/02/19 21:30) Erythrocyte Sedimentation Rate (08/02/19 21:30) Ekg Tracing (08/02/19 21:30) Influenza A And B Antigens (08/02/19 21:30) Liver Panel (08/02/19 21:30) Lactic Acid Analyzer (08/02/19 21:30) Troponin I Fs (08/02/19 21:30) Drug Screen Stat (Urine) (08/02/19 21:40) Ua Culture If Indicated (08/02/19 21:40) Ed Iv/Invasive Line Start (08/02/19 21:40) Ns Iv 500 Ml (Sodium Chloride 0.9%) (08/02/19 21:40) Alcohol (08/02/19 21:41) Manual Differential (08/02/19 21:35) Hs C Reactive Protein (08/02/19 19:35) LDH (08/02/19 19:35) Procalcitonin (Pct) (08/02/19 19:35) Diltiazem Injection (Cardizem Injection) (08/02/19 22:00) Diltiazem Injection (Cardizem Injection) (08/02/19 22:15) Diltiazem Drip Pre-Mix (Cardizem Drip Pr (08/02/19 22:45) Enoxaparin Injection (Lovenox Injection) (08/02/19 22:45) Medications Given in ED Current Medications Medications Dose Ordered Sig/Inder Route Start Time Stop Time Status Last Admin Dose Admin Diltiazem HCl 10 mg ONCE ONCE IVP 08/02/19 22:00 08/02/19 22:02 DC 08/02/19 22:04 10 MG Diltiazem HCl 10 mg ONCE ONCE IVP 08/02/19 22:15 08/02/19 22:16 DC 08/02/19 22:18 10 MG Sodium Chloride 500 ml @ 0 mls/hr Q0M ONCE IV 08/02/19 21:40 08/02/19 21:42 DC 08/02/19 22:03 999 MLS/HR Vital Signs/I&O 08/02/19 21:21 Temp 37.0 Pulse 123 Resp 17 B/P (MAP) 121/72 (88) O2 Delivery Room Air Capillary Refill : Progress Note : Time: 22:42 Progress Note 64 she'll female has new onset atrial fib. Patient was given Cardizem 10 mg IV push 2 then started on a Cardizem drip. I discussed with both Dr. Cunningham and Dr. Mancia. We will transferred patient to [facility] for admission to the ICU. Patient will be transferred on a Cardizem drip with Lovenox 40 mg subcutaneous twice a day. Patient is stable upon transfer. Patient did clarify that she uses oxygen 3 L at night when she is sleeping due to her chronic COPD. ECG Initial ECG Impression Date: Aug 02, 2019 Initial ECG Impression Time: 21:48 Initial ECG Rhythm: A Fib/Flutter Initial ECG Impression: Atrial Fibrillation w/RVR Comment st depression diffuse Diagnostic Imaging Diagonstic Imaging: Xray, CT Comments [place], [place] NAME: ALBA VIERA [facility] REC#: [id number] PT STATUS: REG ER : 1955 PHYSICIAN: KEN LEON DO ADMIT DATE: 08/02/19/ER FS Draft Date of Exam:08/02/19 CT HEAD WO-R/O STROKE PROCEDURE: CT head w/o r/o stroke. TECHNIQUE: Multiple contiguous axial images were obtained through the brain without the use of intravenous contrast. Auto Exposure Controls were utilized during the CT exam to meet ALARA standards for radiation dose reduction. INDICATION: Seizure. COMPARISON: 12/31/2018. FINDINGS: No large acute territorial ischemia, mass or hemorrhage. Old area of encephalomalacia is seen in the right parietal region. No midline shift or mass effect. Decreased attenuation is seen in the periventricular and subcortical white matter. The ventricles and cortical sulci are mildly prominent. The basilar cisterns are patent and unremarkable. Prior craniotomy changes are seen in the right frontal region. The visualized paranasal sinuses are clear. IMPRESSION: 1. No large acute territorial ischemia, mass, or hemorrhage. 2. 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 3. Chronic microvascular disease with mild generalized parenchymal volume loss. NAME: ALBA VIERA [facility] REC#: [id number] PT STATUS: REG ER : 1955 PHYSICIAN: KEN LEON DO ADMIT DATE: 08/02/19/ER FS Draft Date of Exam:08/02/19 CHEST 1 VIEW AP/PA ONLY EXAMINATION: Chest 1 view. HISTORY: Fever. Nausea and vomiting. COMPARISON: Chest radiograph on 12/31/2018. FINDINGS: The lung volumes are normal. Prominent interstitial markings are again seen in the perihilar and basilar regions. No focal consolidation is seen. No large pleural effusion or pneumothorax is seen. The cardiomediastinal silhouette is normal in size and contour. No acute osseous abnormality is seen. IMPRESSION: Stable appearance of prominent interstitial markings in the perihilar and basilar regions. These are favored to represent chronic fibrotic changes. Superimposed edema or infection is not completely excluded. No focal consolidation. Departure Communication (Admissions) Time/Spoke to Admitting Phy: 22:35 Time/Spoke to Consulting Phy: 22:37 Impression Primary Impression: Atrial fibrillation with RVR Disposition: ADMITTED INPATIENT Condition: Stable Admissions Decision to Admit Reason: Admit from ER (General) Decision to Admit/Date: Aug 02, 2019 Time/Decision to Admit Time: 22:33 Departure-Patient Inst. Referrals: MATTHEW SON DO (PCP/Family) Primary Care Physician KEN LEON DO Aug 02, 2019 21:30
[2019-08-02] MEDS ORDERED: NS IV 500 ML 500 ML IV ONE (21:40)
[2019-08-02 21:45] LABS: BASOPHILS # (AUTO) 0.1 10^3/uL (0.0-0.1); BASOPHILS % (AUTO) 1 % (0-10); EOSINOPHILS # (AUTO) 0.2 10^3/uL (0.0-0.3); EOSINOPHILS % (AUTO) 1 % (0-10); HEMATOCRIT 43 % (35-52); HEMOGLOBIN 13.9 G/DL (11.5-16.0); LYMPHOCYTES # (AUTO) 3.6 X 10^3 (1.0-4.0); LYMPHOCYTES % (AUTO) 24 % (12-44); MEAN CORPUSCULAR HEMOGLOBIN 31 PG (25-34); MEAN CORPUSCULAR HGB CONC 32 G/DL (32-36); MEAN CORPUSCULAR VOLUME 95 FL (80-99); MEAN PLATELET VOLUME 8.7 FL (7.4-10.4); MONOCYTES # (AUTO) 1.4 X 10^3 (0.0-1.0); MONOCYTES % (AUTO) 10 % (0-12); NEUTROPHILS # (AUTO) 9.4 X 10^3 (1.8-7.8); NEUTROPHILS % (AUTO) 64 % (42-75); PLATELET COUNT 401 10^3/uL (130-400); WHITE BLOOD COUNT 14.7 10^3/uL (4.3-11.0)
--- NOTE | 2019-08-02 21:59 | Diagnostic Imaging Report ---
PROCEDURE: CT head w/o r/o stroke. TECHNIQUE: Multiple contiguous axial images were obtained through the brain without the use of intravenous contrast. Auto Exposure Controls were utilized during the CT exam to meet ALARA standards for radiation dose reduction. INDICATION: Seizure. COMPARISON: 12/31/2018. FINDINGS: No large acute territorial ischemia, mass or hemorrhage. Old area of encephalomalacia is seen in the right parietal region. No midline shift or mass effect. Decreased attenuation is seen in the periventricular and subcortical white matter. The ventricles and cortical sulci are mildly prominent. The basilar cisterns are patent and unremarkable. Prior craniotomy changes are seen in the right frontal region. The visualized paranasal sinuses are clear. IMPRESSION: 1. No large acute territorial ischemia, mass, or hemorrhage. 2. 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 3. Chronic microvascular disease with mild generalized parenchymal volume loss. Dictated by: Dictated on workstation # [id number]
--- NOTE | 2019-08-02 22:00 | Diagnostic Imaging Report ---
EXAMINATION: Chest 1 view. HISTORY: Fever. Nausea and vomiting. COMPARISON: Chest radiograph on 12/31/2018. FINDINGS: The lung volumes are normal. Prominent interstitial markings are again seen in the perihilar and basilar regions. No focal consolidation is seen. No large pleural effusion or pneumothorax is seen. The cardiomediastinal silhouette is normal in size and contour. No acute osseous abnormality is seen. IMPRESSION: Stable appearance of prominent interstitial markings in the perihilar and basilar regions. These are favored to represent chronic fibrotic changes. Superimposed edema or infection is not completely excluded. No focal consolidation. Dictated by: Dictated on workstation # [id number]
[2019-08-02 22:03] LABS: ERYTHROCYTE SEDIMENTATION RATE 9 MM/HR (0-30)
[2019-08-02 22:10] LABS: EOSINOPHILS % (MANUAL) 2 %; LYMPHOCYTES % (MANUAL) 9 %; MONOCYTES % (MANUAL) 14 %; NEUTROPHILS % (MANUAL) 67 %; REACTIVE LYMPHOCYTES 8 %
[2019-08-02 22:11] LABS: PLATELET CLUMPS SLIGHT; POIKILOCYTOSIS SLIGHT
[2019-08-02 22:12] LABS: TOXIC GRANULATION/VACUOLAZATIO 2+
[2019-08-02 22:20] LABS: ALANINE AMINOTRANSFERASE 22 U/L (0-55); ALBUMIN 4.3 GM/DL (3.2-4.5); ALKALINE PHOSPHATASE 60 U/L (40-136); BILIRUBIN,DIRECT 0.2 MG/DL (0.0-0.3); BILIRUBIN,TOTAL < 0.2 MG/DL (0.1-1.0); BUN/CREATININE RATIO 32; CALCIUM 9.6 MG/DL (8.5-10.1); CARBON DIOXIDE 27 MMOL/L (21-32); CHLORIDE 95 MMOL/L (98-107); CREATININE SERUM 0.76 MG/DL (0.60-1.30); GFR ESTIMATED > 60; GLUCOSE 157 MG/DL (70-105); POTASSIUM 4.8 MMOL/L (3.6-5.0); SODIUM 139 MMOL/L (135-145); TOTAL PROTEIN 7.3 GM/DL (6.4-8.2)
[2019-08-02] MEDS ORDERED: dilTIAZem DRIP PRE-MIX 125 ML IV SCH (22:45)
[2019-08-02] MEDS ORDERED: ENOXAPARIN 40 MG/0.4 ML (LOVENOX) SYR SC ONE (22:45)
[2019-08-02 22:47] LABS: BILIRUBIN,URINE NEGATIVE (NEGATIVE); CLARITY,URINE CLEAR; COLOR,URINE YELLOW; GLUCOSE, URINE (UA) NEGATIVE (NEGATIVE); KETONES,URINE NEGATIVE (NEGATIVE); LEUKOCYTE ESTERASE ,URINE NEGATIVE (NEGATIVE); NITRITE,URINE NEGATIVE (NEGATIVE); PROTEIN,URINE 1+ (NEGATIVE); RBC,URINE RARE /HPF
[2019-08-02 22:48] LABS: BACTERIA,URINE FEW /HPF; GRANULAR CASTS,URINE 0-2 /LPF
[2019-08-02 22:51] LABS: AMPHETAMINE SCREEN, URINE NEGATIVE (NEGATIVE); BARBITURATE SCREEN URINE NEGATIVE (NEGATIVE); BENZODIAZEPINES SCREEN URINE NEGATIVE (NEGATIVE); CANNABINOID SCREEN, URINE NEGATIVE (NEGATIVE); COCAINE SCREEN URINE NEGATIVE (NEGATIVE); METHADONE STAT NEGATIVE (NEGATIVE); METHAMPHETAMINE SCREEN URINE S NEGATIVE (NEGATIVE); OPIATE SCREEN URINE NEGATIVE (NEGATIVE); OXYCODONE STAT POSITIVE (NEGATIVE); PROPOXYPHENE STAT NEGATIVE (NEGATIVE); TRICYCLIC ANTIDEPRESSANTS SCRE NEGATIVE (NEGATIVE)
--- OUTSIDE RECORDS SUMMARY | 2019-08-02 23:24 | XMS REPORT | Continuity of Care Document ---
Author Organization Unknown Address Unknown Phone Unavailable Allergies Active Description Code Type Severity Reaction Onset Reported/Identified Relationship to Patient Clinical Status Yes No Known Drug Allergies [id number] Drug Allergy Unknown N/A 07/25/2013 Medications There [...] AC MD Ot R51 HEADACHE 12/31/2018 ALEX AC MD Ot Z80.3 FAMILY HISTORY [...] lactic acid measurement (moles/volume) 0.48 mmol/L 0.50-2.00 Complete blood count (CBC) with automate d white blood cell (WBC) differential - 08/02/19 21:35 Blood leukocytes automated count (number/volume) 14.7 10*3/uL 4.3-11.0 Blood erythrocytes automated count (number/volume) 4.52 10*6/uL 4.35-5.85 Venous blood hemoglobin measurement (mass/volume) 13.9 g/dL 11.5-16.0 Blood hematocrit (volume fraction) 43 % 35-52 Automated erythrocyte mean corpuscular volume 95 [ foz_us] 80-99 Automated erythrocyte mean corpuscular h emoglobin (mass per erythrocyte) 31 pg 25-34 Automated erythrocyte mean corpuscular h emoglobin concentration measurement (mass/volume) 32 g/dL 32-36 Automated erythrocyte distribution width ratio 13. 0 % 10.0- 14.5 Automated blood platelet count (count/volume) 401 10*3/uL 130-400 Automated blood platelet mean volume measurement 8.7 [foz_us] 7.4-10.4 Automated blood neutrophils/100 leukocytes 64 % 42-75 Automated blood lymphocytes/100 leukocytes 24 % 12-44 Blood monocytes/100 leukocytes 10 % 0-12 Automated blood eosinophils/100 leukocytes 1 % 0-10 Automated blood basophils/100 leukocytes 1 % 0-10 Blood neutrophils automated count (number/volume) 9.4 10*3 1.8-7.8 Blood lymphocytes automated count (number/volume) 3.6 10*3 1.0-4.0 Blood monocytes automated count (number/volume) 1. 4 10*3 0.0-1.0 Automated eosinophil count 0.2 10*3/uL 0 .0-0.3 Automated blood basophil count (count/volume) 0.1 10*3/uL 0.0-0.1 Manual absolute plasma cell count - 0406/21 21:35 Blood monocytes/100 leukocytes 14 % NRG Manual blood segmented neutrophils/100 leukocytes 67 % NRG Manual blood lymphocytes/100 leukocytes 9 % NRG Manual eosinophils/100 leukocytes in nose 2 % NRG Blood lymphocytes variant/100 leukocytes 8 % NRG Blood toxic granules detection by light microscopy 2+ NRG Blood poikilocytosis detection by light microscopy SLIGHT NRG Blood platelet clump detection by light microscopy SLIGHT NRG Fibrin D-dimer FEU measurement in platel et poor plasma (mass/volume) - 08/02/19 21:35 Fibrin D-dimer FEU measurement in platelet poor plasma (mass/volume) 0.44 ug/mL 0.00-0.49 Erythrocyte sedimentation rate by vale gren method - 08/02/19 21:35 Erythrocyte sedimentation rate by westergren method 9 mm 0- 30 Comprehensive metabolic panel - 08/02/19 21:35 Serum or plasma sodium measurement (moles/volume) 139 mmol/L 135-145 Serum or plasma potassium measurement (moles/volume) 4.8 mmol/L 3.6-5.0 Serum or plasma chloride measurement (moles/volume) 95 mmol/L 98-107 Carbon dioxide 27 mmol/L 21-32 Serum or plasma anion gap determination (moles/volume) 17 mmol/L 5-14 Serum or plasma urea nitrogen measurement (mass/volume ) 24 mg/dL 7-18 Serum or plasma creatinine measurement (mass/volume) 0.76 mg/dL 0.60-1.30 Serum or plasma urea nitrogen/creatinine mass ratio 32 NRG Serum or plasma creatinine measurement w ith calculation of estimated glomerular filtration rate > NRG Serum or plasma glucose measurement (mass/volume) 157 mg/dL 70-105 Serum or plasma calcium measurement (mass/volume) 9.6 mg/dL 8.5-10.1 Serum or plasma total bilirubin measurement (mass/volu me) < mg/dL 0.1-1.0 Serum or plasma alkaline phosphatase rob surement (enzymatic activity/volume) 60 U/L 40-136 Serum or plasma aspartate aminotransfera se measurement (enzymatic activity/volume) 22 U/L 5-34 Serum or plasma alanine aminotransferase measurement (enzymatic activity/volume) 22 U/L 0-55 Serum or plasma protein measurement (mass/volume) 7.3 g/dL 6.4-8.2 Serum or plasma albumin measurement (mass/volume) 4.3 g/dL 3.2-4.5 CALCIUM CORRECTED 9.4 mg/dL 8.5-10.1 Liver function panel (serum or plasma al k phos, alb, total and direct bili, total protein, ALT, AST) - 08/02/19 21:35 Bilirubin direct 0.2 mg/dL 0.0-0.3 Serum or plasma indirect bilirubin measurement (mass/v olume) 0.0 mg/dL NRG TROPONIN I FS - 08/02/19 21:35 TROPONIN I FS < 0.30 <0.30 Serum or plasma ethanol measurement (mas s/volume) - 08/02/19 21:35 Serum or plasma ethanol measurement (mass/volume) < mg/dL <10 Complete urinalysis with reflex to cultu re - 08/02/19 22:34 Urine color determination YELLOW NRG Urine clarity determination CLEAR NR G Urine pH measurement by test strip 6.0 5-9 Specific gravity of urine by test strip >= 1.016-1.022 Urine protein assay by test strip, semi-quantitative 1+ NEGATIVE Urine glucose detection by automated test strip NE GATIVE NEGATIVE Erythrocytes detection in urine sediment by light micr oscopy NEGATIVE NEGATIVE Urine ketones detection by automated test strip NE GATIVE NEGATIVE Urine nitrite detection by test strip NEGATIVE NEGATIVE Urine total bilirubin detection by test strip NEGA TIVE NEGATIVE Urine urobilinogen measurement by automated test strip (mass/volume) 0.2 mg/dL < = 1.0 Urine leukocyte esterase detection by dipstick NEG ATIVE NEGATIVE Automated urine sediment erythrocyte cou nt by microscopy (number/high power field) RARE NRG Automated urine sediment leukocyte count by microscopy (number/high power field) [HPF] NRG Bacteria detection in urine sediment by light microsco py FEW NRG Squamous epithelial cells detection in u rine sediment by light microscopy 10-25 NRG Crystals detection in urine sediment by light microsco py NONE NRG Casts detection in urine sediment by light microscopy PRESENT NRG Mucus detection in urine sediment by light microscopy MODERATE NRG Complete urinalysis with reflex to culture YES NRG Hyaline casts detection in urine sediment by light ricarda roscopy 2-5 NRG Granular casts detection in urine sediment by light mi croscopy 0-2 NRG Urine drug screening test - 08/02/19 22: 34 Urine phencyclidine detection by screening method NEGATIVE NEGATIVE Urine benzodiazepines detection by screening method NEGATIVE NEGATIVE Urine cocaine detection NEGATIVE NEGATI VE Urine amphetamines detection by screening method N EGATIVE NEGATIVE Urine methamphetamine detection by screening method NEGATIVE NEGATIVE Urine cannabinoids detection by screening method N EGATIVE NEGATIVE Urine opiates detection by screening method NEGATI VE NEGATIVE Urine barbiturates detection NEGATIVE N EGATIVE Screening urine tricyclic antidepressants detection NEGATIVE NEGATIVE Urine methadone detection by screening method NEGA TIVE NEGATIVE Urine oxycodone detection POSITIVE NEGA TIVE Urine propoxyphene detection NEGATIVE N EGATIVE Encounters ACCT No. Visit Date/Time Discharge Status Pt. Type Provider Facility Loc./Unit Complaint [id number] 12/31/2018 00:37:00 04:19:00 DIS Emergency OSORIO COLLINS, ALEX Mccullough [facility] ER FS HEADACHE [id number] 07/30/2013 10:15:00 13:10:00 DIS Inpatient [id number] 07/25/2013 09:11:00 23:59:59 CLS Outpatient [id number] 06/26/2013 12:19:00 23:59:59 CLS Outpatient [id number] 08/02/2019 21:46:00 Document Registration
[2019-08-03] VITALS (27 sets, daily range): BP systolic 85–143; BP diastolic 51–97
[2019-08-03 03:23] LABS: BASOPHILS % (AUTO) 0 % (0-10); EOSINOPHILS # (AUTO) 0.1 10^3/uL (0.0-0.3); EOSINOPHILS % (AUTO) 1 % (0-10); HEMATOCRIT 42 % (35-52); HEMOGLOBIN 13.3 G/DL (11.5-16.0); LYMPHOCYTES # (AUTO) 2.1 X 10^3 (1.0-4.0); LYMPHOCYTES % (AUTO) 15 % (12-44); MEAN CORPUSCULAR HEMOGLOBIN 30 PG (25-34); MEAN CORPUSCULAR HGB CONC 32 G/DL (32-36); MEAN CORPUSCULAR VOLUME 94 FL (80-99); MEAN PLATELET VOLUME 8.8 FL (7.4-10.4); MONOCYTES # (AUTO) 1.4 X 10^3 (0.0-1.0); MONOCYTES % (AUTO) 10 % (0-12); NEUTROPHILS # (AUTO) 10.7 X 10^3 (1.8-7.8); NEUTROPHILS % (AUTO) 75 % (42-75); PLATELET COUNT 339 10^3/uL (130-400); RED CELL DISTRIBUTION WIDTH 13.2 % (10.0-14.5); WHITE BLOOD COUNT 14.3 10^3/uL (4.3-11.0)
[2019-08-03 03:42] LABS: ALANINE AMINOTRANSFERASE 20 U/L (0-55); ALBUMIN 3.7 GM/DL (3.2-4.5); ALKALINE PHOSPHATASE 52 U/L (40-136); BILIRUBIN,TOTAL 0.4 MG/DL (0.1-1.0); BUN/CREATININE RATIO 26; CALCIUM 8.5 MG/DL (8.5-10.1); CARBON DIOXIDE 25 MMOL/L (21-32); CHLORIDE 103 MMOL/L (98-107); GFR ESTIMATED > 60; GLUCOSE 116 MG/DL (70-105); MAGNESIUM 1.8 MG/DL (1.6-2.4); PHOSPHORUS 3.9 MG/DL (2.3-4.7); POTASSIUM 4.2 MMOL/L (3.6-5.0); SODIUM 139 MMOL/L (135-145); TOTAL PROTEIN 6.4 GM/DL (6.4-8.2)
--- NOTE | 2019-08-03 04:23 | Pulmonary Consultation ---
History of Present Illness History of Present Illness Date Seen by Provider: Aug 03, 2019 Time Seen by Provider: 04:18 Date of Admission History of Present Illness 64yo with hx of COPD with nocturnal hypoxia, current tobacco use, and chronic cough presented to ED secondary to worsening weakness. She was found to have Afib RVR started on Cardizem gtt and transferred to ICU. No F/NS/C and no CP. Troponin is negative. Allergies and Home Medications Allergies Coded Allergies: No Known Drug Allergies (Unverified , 07/25/13) Home Medications Albuterol Sulfate 0.63 Mg/3 Ml Vial.neb, 3 ML IH Q4H PRN for SHORTNESS OF BREATH, (Reported) PRN SHORTNESS OF BREATH Amitriptyline Hcl 25 Mg Tablet, 25 MG PO HS, (Reported) Calcium Carbonate/Vitamin D3 1 Each Tablet, 1 TAB PO DAILY, (Reported) Desvenlafaxine Succinate 100 Mg Tab.sr.24h, 100 MG PO HS, (Reported) Hydrocodone Bit/Acetaminophen 1 Each Tablet, 1 TAB PO Q4H PRN for PAIN, (Reported) PRN PAIN Ipratropium/Albuterol Sulfate 14.7 Gm Aer.w.adap, 2 PUFF IH Q6HR PRN for SHORTNESS OF BREATH, (Reported) PRN SHORTNESS OF BREATH Lovastatin 20 Mg Tablet, 20 MG PO HS, (Reported) Multivitamin 1 Each Tablet, 1 TAB PO DAILY, (Reported) Ondansetron 4 Mg Tab.rapdis, 4 MG PO Q6H PRN for NAUSEA/VOMITING Prescribed by: ALEX AC on 12/31/18 035 Oxycodone Hcl 20 Mg Tablet, 20 MG PO Q6H PRN for PAIN, (Reported) PRN PAIN Oxycodone Hcl/Acetaminophen 1 Tab Tablet, 1-2 TAB PO Q4H Prescribed by: KWABENA ZHENG on 07/31/13 0430 Prednisone 20 Mg Tab, 40 MG PO DAILY Prescribed by: ALEX AC on 12/31/18 035 Pregabalin 300 Mg Capsule, 300 MG PO BID, (Reported) Tiotropium [place] 18 Mcg Cap.w.dev, 1 PUFF IH DAILY, (Reported) Trazodone Hcl 50 Mg Tablet, 50 MG PO HS, (Reported) Varenicline Tartrate 1 Mg Tablet, 1 MG PO BID, (Reported) Vitamin A 8,000 Unit Capsule, 8,000 UNIT PO DAILY, (Reported) Vitamin E Acetate 400 Unit Capsule, 400 UNIT PO DAILY, (Reported) Past Jikaqcd-Vbdzko-Vqcyyc Hx Past Med/Social Hx: Reviewed Nursing Past Med/Soc Hx Patient Social History Alcohol Use: Denies Use Recreational Drug Use: No Smoking Status: Current Everyday Smoker Type Used: Cigarettes 2nd Hand Smoke Exposure: Yes Recent Foreign Travel: No Contact w/Someone Who Travel: No Recent Infectious Disease Expo: No Physical Abuse: No Sexual Abuse: No Mistreated: No Fear: No Immunizations Up To Date Tetanus Booster (TDap): More than 5yrs Date of Pneumonia Vaccine: May 02, 2016 Date of Influenza Vaccine: Jul 22, 2013 Past Medical History Surgeries: Yes (Brain "PUS POCKETS ON BRAIN") Orthopedic Respiratory: Yes Asthma, Pneumonia, COPD Cardiac: Yes (WAS TOLD SHE HAD A HEART MURMUR ONE TIME SEVERAL YRS AGO, ) 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) Reproductive Disorders: No Gastrointestinal: No Musculoskeletal: Yes Arthritis, Spasms Endocrine: No Cancer: No Psychosocial: No Integumentary: No Blood Disorders: No Family Medical History Cancer 09 SISTER (BREAST) Family history: Arthritis 03 FATHER 03 MOTHER Family history: Cardiovascular disease 03 FATHER 03 MOTHER Family history: Hypertension 03 MOTHER Heart disease 03 MOTHER History of - respiratory disease 03 FATHER 03 MOTHER 09 BROTHER 09 SISTER Myocardial infarction 03 FATHER 03 MOTHER No Family History of: Abdominal aortic aneurysm Alcoholism Congestive heart failure Dementia Family history: Allergy Family history: Alzheimer's disease Family history: Asthma Family history: Diabetes mellitus Family history: Glaucoma Family history: Thyroid disorder Hereditary disease History of - anemia Kidney disease Parkinson's disease Prostate cancer Psychotic disorder Seizure disorder Stroke Sepsis Event Evaluation Height, Weight, BMI Height: 5'3.00" Weight: 100lbs. 0oz. 45.100331hr; 19.35 BMI Method:Stated Exam Exam Vital Signs Date Time Temp Pulse Resp B/P (MAP) Pulse Ox O2 Delivery O2 Flow Rate FiO2 08/03/19 04:00 94 11 109/71 (84) 95 Nasal Cannula 3.00 08/03/19 03:00 80 14 102/69 (80) 96 Nasal Cannula 3.00 08/03/19 02:00 106 14 105/73 (84) 94 Nasal Cannula 3.00 08/03/19 01:45 120 16 114/68 (83) 93 Nasal Cannula 3.00 08/03/19 01:15 112 15 95/70 (78) 92 Nasal Cannula 3.00 08/03/19 01:10 Nasal Cannula 3.00 08/03/19 01:00 138 12 96/72 (80) 94 Nasal Cannula 2.00 08/03/19 00:45 79 12 85/69 (74) 92 Nasal Cannula 2.00 08/03/19 00:35 93 Nasal Cannula 2.00 08/03/19 00:25 119 08/03/19 00:20 37.0 124 18 102/74 (83) 93 Nasal Cannula 2.00 08/02/19 23:38 122 18 129/77 95 Nasal Cannula 2.00 08/02/19 21:21 37.0 123 17 121/72 (88) Room Air I & O 08/03/19 07:00 Intake Total 600 ml Output Total 400 ml Balance 200 ml Height & Weight Height: 5'3.00" Weight: 100lbs. 0oz. 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 - CJ MORALES DO Aug 03, 2019 04:23
[2019-08-03] MEDS ORDERED: RT-ALBUTEROL SULF 2.5 MG/3 ML PRE-MIX VIAL INH PRN (07:15)
[2019-08-03] MEDS: RT-ALBUTEROL SULF 2.5 MG/3 ML PRE-MIX VIAL INH SCH ×3 (08:31→20:54)
[2019-08-03] MEDS: ADVAIR HFA 115/21 MCG INHALER 8 GM IH SCH ×2 (08:31→20:54)
[2019-08-03] MEDS ORDERED: ALBU18HF2 IN (08:49)
[2019-08-03] MEDS ORDERED: PRAM0.5T9 PO (08:49)
[2019-08-03] MEDS ORDERED: PRAM1TAB5 PO (08:49)
[2019-08-03] MEDS ORDERED: LOVA20TA2 PO (08:49)
[2019-08-03] MEDS ORDERED: MULT-618 PO (08:49)
[2019-08-03] MEDS ORDERED: ALPR0.254 PO (08:49)
[2019-08-03] MEDS ORDERED: OXYC20TA3 PO (08:49)
[2019-08-03] MEDS ORDERED: FISH1CAP15 PO (08:49)
[2019-08-03] MEDS ORDERED: CALC-880 PO (08:49)
[2019-08-03] MEDS ORDERED: UMEC1BLS IN (08:49)
[2019-08-03] MEDS ORDERED: NF-EXCEDMI PO (08:49)
[2019-08-03] MEDS ORDERED: CARI1.5C PO (08:49)
[2019-08-03] MEDS ORDERED: CLOP75TA28 PO (08:49)
[2019-08-03] MEDS ORDERED: TRAZ-227 PO (08:49)
[2019-08-03] MEDS ORDERED: BUPR900F3 MM (08:49)
[2019-08-03] MEDS ORDERED: ACET-2715 PO (09:19)
[2019-08-03] MEDS ORDERED: IPRA3AMP31 PO (09:29)
--- NOTE | 2019-08-03 09:30 | NUR ---
SPOKE WITH THE PT, WENT THRU THE EXT MED HISTORY AND CALLED [facility] AND HER PCP TO COMPLETE THE MED REC PAROXETINE, FLUOXETINE AND VRAYLAR ALL SHOW ON THE EXT MED HISTORY AND THE PT THOUGHT SHE WAS JUST TAKING VRAYLAR BUT WAS UNSURE. I SPOKE WITH OFFICE AND THEY LET ME KNOW THE FOLLOWING: FLUOXETINE WAS SWITCHED TO PAROXETINE (DUE IN TO INSURANCE AND THEN VRAYLAR REPLACED PAROXETINE AT THE END OF JULY 2019. OTC MEDS: TYLENOL PM CALCIUM W/ VIT D FISH OIL MTV MIGRAINE RELIEF PRN Addendum: 08/03/19 at 1032 by VIVEK ANTUNEZ granite installer WHEN I ENTERED TRAZODONE FOR THE PT I PUT A DOSE OF 30MG- THIS WAS INCORRECT, THE DOSE IS 100MG- I UPDATED THE MED REC AND ALERTED THE PHARMACISTS (THE ORDERS WERE BEING REVIEWED) SO IT WAS CORRECT
[2019-08-03] MEDS ORDERED: ALPRAZolam 0.25 MG (XANAX) TAB PO PRN (10:30)
[2019-08-03] MEDS ORDERED: polyethylene glycoL POWDER 17 GM (MIRALAX) PACK PO PRN (10:30)
[2019-08-03] MEDS ORDERED: ACETAMINOPHEN 325 MG TABLET PO PRN (10:30)
[2019-08-03] MEDS ORDERED: ONDANSETRON 4 MG (ZOFRAN) ORAL DISSOLVE TAB PO PRN (10:30)
[2019-08-03] MEDS ORDERED: diphenhydrAMINE 25 MG TAB (BENADRYL) PO PRN (10:30)
[2019-08-03] MEDS ORDERED: ANTACID SUSP 30 ML UDC (MYLANTA) PO PRN (10:30)
[2019-08-03] MEDS ORDERED: ONDANSETRON 4 MG/2 ML (SDV) Z0FRAN IV PRN (10:30)
[2019-08-03] MEDS ORDERED: BISACODYL 10 MG SUPP (DULCOLAX) PR PRN (10:30)
[2019-08-03] MEDS ORDERED: NON-FORMULARY MEDICATION 1 EA EA (Umeclidinium Brm/Vilanterol Tr (Anoro Ellipta 62.5-25 Mc IN PRN (10:30)
[2019-08-03] MEDS ORDERED: MELATONIN 3 MG TABLET PO PRN (10:30)
--- NOTE | 2019-08-03 10:30 | Consultation-Cardiology ---
HPI-Cardiology Cardiology Consultation Date of Consultation 08/03/19 Date of Admission Time Seen by Provider: 11:00 Indication: AFib with RVR HPI Patient is a 64 y/o female with hx of COPD, hyperlipidemia, tobaccoism. Presented to the ER with complaints of "not feeling well." Patient went on to report episode of generalized weakness and confusion for the past 2 days. Denies any dizziness, lightheadedness or syncope. Workup done in the ER revealed Afib with RVR. Denies any previous hx of afib. Currently on Cardizem gtt. Denies any chest pain or dyspnea at this time. 64-year-old lady with history of COPD, tobaccoism, hyperlipidemia, started to have weakness in her right arm and confusion and lethargy. Disorientation. Came to the emergency room and noted to be in atrial fibrillation with rapid ventricular response, denied any chest pain or palpitation. No syncope. Bevier lightheaded. Home Medications & Allergies Allergies: Coded Allergies: No Known Drug Allergies (Unverified , 07/25/13) Home Medication List Reviewed: Yes medication list reviewed FON-Tabmqt-Qeyidf Hx Patient Social History Marital Status: Employed/Student: retired Alcohol Use: Denies Use Recreational Drug Use: No Smoking Status: Current Everyday Smoker Type Used: Cigarettes 2nd Hand Smoke Exposure: Yes Recent Foreign Travel: No Recent Infectious Disease Expo: No Immunizations Up To Date Tetanus Booster (TDap): More than 5yrs Date of Pneumonia Vaccine: May 02, 2016 Date of Influenza Vaccine: Jul 22, 2013 Past Medical History COPD, hyperlipidemia, tobaccoism Family Medical History Family History: Cancer 09 SISTER (BREAST) Family history: Arthritis 03 FATHER 03 MOTHER Family history: Cardiovascular disease 03 FATHER 03 MOTHER Family history: Hypertension 03 MOTHER Heart disease 03 MOTHER History of - respiratory disease 03 FATHER 03 MOTHER 09 BROTHER 09 SISTER Myocardial infarction 03 FATHER 03 MOTHER No Family History of: Abdominal aortic aneurysm Alcoholism Congestive heart failure Dementia Family history: Allergy Family history: Alzheimer's disease Family history: Asthma Family history: Diabetes mellitus Family history: Glaucoma Family history: Thyroid disorder Hereditary disease History of - anemia Kidney disease Parkinson's disease Prostate cancer Psychotic disorder Seizure disorder Stroke Review of Systems-General Review of Systems Constitutional: see HPI; No fever; malaise, weakness EENTM: see HPI, no symptoms reported; No blurred vision, No double vision Respiratory: cough, dyspnea on exertion; No hemoptysis, No orthopnea Cardiovascular: no symptoms reported; No chest pain, No edema, No Hx of Intervention, No palpitations Gastrointestinal: no symptoms reported Genitourinary: no symptoms reported Psychiatric/Neurological: See HPI Reviewed Test Results Reviewed Test Results Lab Laboratory Tests 08/02/19 19:35: 08/02/19 21:35: White Blood Count 14.7H, Red Blood Count 4.52, Hemoglobin 13.9, Hematocrit 43, Mean Corpuscular Volume 95, Mean Corpuscular Hemoglobin 31, Mean Corpuscular Hemoglobin Concent 32, Red Cell Distribution Width 13.0, Platelet Count 401H, Mean Platelet Volume 8.7, Neutrophils (%) (Auto) 64, Lymphocytes (%) (Auto) 24, Monocytes (%) (Auto) 10, Eosinophils (%) (Auto) 1, Basophils (%) (Auto) 1, Neutrophils # (Auto) 9.4H, Lymphocytes # (Auto) 3.6, Monocytes # (Auto) 1.4H, Eosinophils # (Auto) 0.2, Basophils # (Auto) 0.1, Neutrophils % (Manual) 67, Lymphocytes % (Manual) 9, Monocytes % (Manual) 14, Eosinophils % (Manual) 2, Reactive Lymphocytes 8, Toxic Granulation 2+, Clumped Platelets SLIGHT, Poikilocytosis SLIGHT, Erythrocyte Sedimentation Rate 9, D-Dimer 0.44, Sodium Level 139, Potassium Level 4.8, Chloride Level 95L, Carbon Dioxide Level 27, Anion Gap 17H, Blood Urea Nitrogen 24H, Creatinine 0.76, Estimat Glomerular Filtration Rate > 60, BUN/Creatinine Ratio 32, Glucose Level 157H, Calcium Level 9.6, Corrected Calcium 9.4, Total Bilirubin < 0.2, Direct Bilirubin 0.2, Indirect Bilirubin 0.0, Aspartate Amino Transf (AST/SGOT) 22, Alanine Aminotransferase (ALT/SGPT) 22, Alkaline Phosphatase 60, Troponin I < 0.30, Total Protein 7.3, Albumin 4.3, Serum Alcohol < 10 08/02/19 22:34: Urine Color YELLOW, Urine Clarity CLEAR, Urine pH 6.0, Urine Specific [place] >=1.030, Urine Protein 1+H, Urine Glucose (UA) NEGATIVE, Urine Ketones NEGATIVE, Urine Nitrite NEGATIVE, Urine Bilirubin NEGATIVE, Urine Urobilinogen 0.2, Urine Leukocyte Esterase NEGATIVE, Urine RBC (Auto) NEGATIVE, Urine RBC RARE, Urine WBC 5-10H, Urine Squamous Epithelial Cells 10-25H, Urine Crystals NONE, Urine Bacteria FEWH, Urine Casts PRESENT, Urine Hyaline Casts 2-5H, Urine Granular Casts 0-2H, Urine Mucus MODERATEH, Urine Culture Indicated YES, Urine Opiates Screen NEGATIVE, Urine Oxycodone Screen POSITIVEH, Urine Methadone Screen NEGATIVE, Urine Propoxyphene Screen NEGATIVE, Urine Barbiturates Screen NEGATIVE, Ur Tricyclic Antidepressants Screen NEGATIVE, Urine Phencyclidine Screen NEGATIVE, Urine Amphetamines Screen NEGATIVE, Urine Methamphetamines Screen NEGATIVE, Urine Benzodiazepines Screen NEGATIVE, Urine Cocaine Screen NEGATIVE, Urine Cannabinoids Screen NEGATIVE 08/03/19 02:50: White Blood Count 14.3H, Red Blood Count 4.41, Hemoglobin 13.3, Hematocrit 42, Mean Corpuscular Volume 94, Mean Corpuscular Hemoglobin 30, Mean Corpuscular Hemoglobin Concent 32, Red Cell Distribution Width 13.2, Platelet Count 339, Mean Platelet Volume 8.8, Neutrophils (%) (Auto) 75, Lymphocytes (%) (Auto) 15, Monocytes (%) (Auto) 10, Eosinophils (%) (Auto) 1, Basophils (%) (Auto) 0, Neutrophils # (Auto) 10.7H, Lymphocytes # (Auto) 2.1, Monocytes # (Auto) 1.4H, Eosinophils # (Auto) 0.1, Basophils # (Auto) 0.0, Sodium Level 139, Potassium Level 4.2, Chloride Level 103, Carbon Dioxide Level 25, Anion Gap 11, Blood Urea Nitrogen 18, Creatinine 0.70, Estimat Glomerular Filtration Rate > 60, BUN/Creatinine Ratio 26, Glucose Level 116H, Calcium Level 8.5, Corrected Calcium 8.7, Total Bilirubin 0.4, Aspartate Amino Transf (AST/SGOT) 20, Alanine Aminotransferase (ALT/SGPT) 20, Alkaline Phosphatase 52, Troponin I < 0.028, Total Protein 6.4, Albumin 3.7, Phosphorus Level 3.9, Magnesium Level 1.8, Procalcitonin 0.01 08/03/19 08:33: Troponin I < 0.028 ECG Impression ECG Initial ECG Rhythm: A Fib/Flutter Initial ECG Impression: Atrial Fibrillation w/RVR Physical Exam Physical Exam Vital Signs Vital Signs - First Documented 08/02/19 08/02/19 21:21 23:38 Temp 37.0 Pulse 123 Resp 17 B/P (MAP) 121/72 (88) Pulse Ox 95 O2 Delivery Room Air O2 Flow Rate 2.00 Capillary Refill : Less Than 3 Seconds Height, Weight, BMI Height: 5'3.00" Weight: 100lbs. 0oz. 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 Will make patient NPO after MN, planning to [facility] with cardioversion in the morning. TIA with right hand weakness and confusion, now resolved. 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 COPD with nocturnal hypoxemia HLP- maintained on statin as outpatient Tobaccoism- educated on the importance of smoking cessation Thank you for allowing us to participate in the management of Ms. Zhao. This is Marie Siegel PA-C, as a scribe for Dr. Jane. This Dr. Jane, I have seen and interviewed the patient, perform physical examination discussed the management plan with Marie, agree with the current scribed notes. I made few modifications to the note using Italic font Patient is in atrial fibrillation, borderline tachycardic, started back on Cardizem drip, and tinea on Lovenox and planning for [facility] and cardioversion tomorrow if she did not convert on her own TIA, right hand weakness and confusion, resolved. Will need oral anticoagulation COPD,using oxygen at night Tobaccoism, educated on smoking cessation Clinical Quality Measures DVT/VTE Risk/Contraindication: Risk Factor Score Per Nursin RFS Level Per Nursing on Admit: 4+=Very High DESHPANDE-CHRISTINE,MARIE K PA Aug 03, 2019 10:30 BERNARD JANE MD Aug 03, 2019 11:33
--- NOTE | 2019-08-03 10:34 | History & Physical-Hospitalist ---
History of Present Illness HPI/Chief Complaint Naila Zhao is a 64-year-old female with past medical history of COPD on nocturnal oxygen, current smoker, restless leg syndrome, depression, anxiety, hyperlipidemia, who presented with confusion and weakness. She reports that she was watching television yesterday evening and noticed that she was unable to move her right hand. She went to the emergency room in [place]. She was found to be in atrial fibrillation with rapid ventricular response and was started on IV Cardizem. She says that she started feeling better at that time. She denies any history of atrial fibrillation and is not currently on a blood thinner. She denies any fevers or chills. She denies any chest pain or shortness of breath. She denies any abdominal pain, nausea, vomiting, or diarrhea. She denies any dysuria. She is a current every day smoker of about one pack a day. Source: patient Exam Limitations: no limitations Date Seen 08/03/19 Time Seen by a Provider: 09:00 Attending Physician Anai Cunningham DO PCP Alphonso Mireles DO Referring Physician Date of Admission Aug 02, 2019 at 22:40 Home Medications & Allergies Home Medications Reviewed patient Home Medication Reconciliation performed by pharmacy medication reconciliations traffic engineering technician and/or nursing. Patients Allergies have been reviewed. Allergies Allergies Coded Allergies No Known Drug Allergies (Unverified07/25/13) Past Tpjauti-Fjzwlt-Gqyjfo Hx Past Med/Social Hx: Reviewed Nursing Past Med/Soc Hx Patient Social History Alcohol Use: Denies Use Recreational Drug Use: No Smoking Status: Current Everyday Smoker Type Used: Cigarettes 2nd Hand Smoke Exposure: Yes Recent Foreign Travel: No Contact w/other who traveled: No Recent Infectious Disease Expo: No Immunizations Up To Date Tetanus Booster (TDap): More than 5yrs Date of Pneumonia Vaccine: May 02, 2016 Date of Influenza Vaccine: Jul 22, 2013 Past Medical History Surgeries: Orthopedic Reproductive: No Musculoskeletal: Arthritis, Spasms History of Blood Disorders: No Family History Cancer 09 SISTER (BREAST) Family history: Arthritis 03 FATHER 03 MOTHER Family history: Cardiovascular disease 03 FATHER 03 MOTHER Family history: Hypertension 03 MOTHER Heart disease 03 MOTHER History of - respiratory disease 03 FATHER 03 MOTHER 09 BROTHER 09 SISTER Myocardial infarction 03 FATHER 03 MOTHER No Family History of: Abdominal aortic aneurysm Alcoholism Congestive heart failure Dementia Family history: Allergy Family history: Alzheimer's disease Family history: Asthma Family history: Diabetes mellitus Family history: Glaucoma Family history: Thyroid disorder Hereditary disease History of - anemia Kidney disease Parkinson's disease Prostate cancer Psychotic disorder Seizure disorder Stroke Review of Systems Constitutional: weakness Respiratory: no symptoms reported Cardiovascular: palpitations Gastrointestinal: no symptoms reported Genitourinary: no symptoms reported Musculoskeletal: no symptoms reported Skin: no symptoms reported Psychiatric/Neurological: No Symptoms Reported Physical Exam Physical Exam Vital Signs Vital Signs - First Documented 08/02/19 08/02/19 21:21 23:38 Temp 37.0 Pulse 123 Resp 17 B/P (MAP) 121/72 (88) Pulse Ox 95 O2 Delivery Room Air O2 Flow Rate 2.00 Capillary Refill : Less Than 3 Seconds Height, Weight, BMI Height: 5'3.00" Weight: 100lbs. 0oz. 45.150653no; 19.35 BMI Method:Stated General Appearance: No Apparent Distress, Chronically ill, Cachetic Neck: Normal Inspection, Supple Respiratory: Lungs Clear, Normal Breath Sounds, No Respiratory Distress Cardiovascular: Regular Rate, Rhythm, No Edema, No Murmur Gastrointestinal: Normal Bowel Sounds, Non Tender, Soft Extremity: Normal Inspection, Non Tender, No Pedal Edema Neurologic/Psychiatric: Alert, Oriented x3, No Motor/Sensory Deficits, Normal Mood/Affect Skin: Normal Color, Warm/Dry Results Results/Procedures Labs Laboratory Tests 08/02/19 21:35 08/03/19 02:50 Patient resulted labs reviewed. Imaging: Reviewed Imaging Report Assessment/Plan Admission Diagnosis Atrial fibrillation with rapid ventricular response Admission Status: Inpatient Order (span 2 midnights) Reason for Inpatient Admission: A. fib with RVR requiring further evaluation and treatment Assessment and Plan Atrial fibrillation with rapid ventricular response Started on IV Cardizem Remains in A. fib with RVR Transition to therapeutic dose Lovenox Cardiology consulted, appreciate assistance Leukocytosis Mild, WBC 14 Afebrile Chest x-ray with no focal consolidation Procalcitonin normal, antibiotics discourage UA not consistent with UTI, 5-10 WBC COPD without exacerbation Continue home inhalers Nicotine dependence, cigarettes, uncomplicated Nicotine patch ordered Restless leg syndrome Depression Anxiety Continue home meds DVT prophylaxis: Already receiving therapeutic anticoagulation Diagnosis/Problems Diagnosis/Problems (1) Atrial fibrillation with RVR Status: Acute Clinical Quality Measures DVT/VTE Risk/Contraindication: Risk Factor Score Per Nursin RFS Level Per Nursing on Admit: 4+=Very High VENITA,KELTON M MD Aug 03, 2019 10:34
--- NOTE | 2019-08-03 10:55 | NUR ---
CONSULTED WITH DR. NATHAN TO CHANGE PATIENT'S LOVENOX DOSING/FREQUENCY TO 40MG BID...A-FIB RVR (TREATMENT DOSE 1MG/KG). CURRENT WEIGHT 47.7 KG, WEIGHT UPON ADMISSION 40KG; SCr 0.7, CrCl 41.7, BMI 19.4
[2019-08-03] MEDS ORDERED: ENOXAPARIN 40 MG/0.4 ML (LOVENOX) SYR SC SCH (11:00)
[2019-08-03] MEDS: PRAMIPEXOLE 0.5 MG TAB (MIRAPEX) PO SCH (11:58)
[2019-08-03] MEDS: NICOTINE 21 MG (NICODERM) PATCH TD SCH (13:01)
--- NOTE | 2019-08-03 13:21 | NUR ---
"RD ASSESSMENT PMHx: COPD; restless leg syndrome; HLD; tobacco use PT INTERACTION: Pt was awake and pleasant for consult on malnutrition. Pt states current appetite is alright, and was the same at home prior to admit. Note PO intake of 75% x1meal, per chart review. Pt states following a regular diet at home and has no issues with chewing/swallowing food. Pt states no recent issues with n/v/c/d at this time, and that her last BM was 4/2. Note pt currently on bowel regimen of Colace BID; and Senna BID, per chart review. Pt states recent intentional wt gain per her physician's recommendation. Note recent 5# wt gain x7mon, per chart review. Upon visual exam, pt appears to be frail, but adequately nourished with a BMI of 19.4. This BMI, given her age, is classified as Underweight. Though she appears frail and does have a low BMI, she does not meet criteria for malnutrition per ASPEN guidelines. ABNORMAL NUTRITION-RELATED LAB VALUES LOW: HIGH: glu 116 Est. kcal needs: 4989-7083 kcal | 30-35 kcal/kg Est. Pro needs: 57-67 g Pro | 1.2-1.4 g Pro/kg PES STATEMENT: Underweight (NC-3.1) related to increased energy needs d/t chronic disease (COPD) as evidenced by BMI 19.4 INTERVENTION: Note pt currently NPO, pending procedure. Would recommend advancing diet to Regular diet as medically able and as tolerated. Upon diet advancement, Pt may benefit from nutrition supplementation for increased kcal intake. Will continue to follow and reassess as pt needs, intake, and status change. MONITOR/EVALUATE: PO Intake; Plan of Care; Hydration Status; Weight Status; Lab Values Milagro Gaston, MS, RD, LD"
--- NOTE | 2019-08-03 13:58 | NUR ---
CM/SS visited with the patient for discharge planning. Plan: The patient will return home with possible new oxygen need and transportation from . DME: The patient is already set up with [facility] in [place], [place]. She was currently only on nocturnal oxygen. [facility]'s Phone number is [phone] and Fax number is [phone]. CM/SS called the agency to inform them of possible change in oxygen. CM/SS also informed them that the patient has a portable tank at home already. The patients nurse was also informed of this. CM/SS faxed over face sheet and H&P and discussed with the nurse that a script and qualifiers will need to be sent to agency. The nurse verbalized understanding. No other needs at this time. Addendum: 08/06/19 at 1426 by [facility] and make sure they received qualifiers and script from ICU nurse over the weekend. They verbalized they did not receive anything. CM/SS faxed script and qualifiers. They verified receiving the fax. No other needs.
--- NOTE | 2019-08-03 14:21 | NUR ---
AT 1357 PT CONVERTED TO SR, EKG OBTAINED AND DR ONEILL NOTIFIED. NEW ORDERS RECEIVED TO CANCEL [facility]/CARDIOVERSION STOP CARDIZEM DRIP IN 1 HOUR AND DC LOVENOX, START PT ON ELIQUIS. SEE ORDER HX. CATTLE BROKER NOTIFIED OF ABOVE.
--- NOTE | 2019-08-03 14:36 | Physician Query Clarification ---
PQ-Conflicting Diagnosis Admission/Discharge Admission Date: Aug 02, 2019 at 22:40 Discharge Date: The medical record reflects the following clinical scenario: History/Risk Factors: Atrial Fibrillation with rapid ventricular response Cachexia BMI 19.4 Confusion with disorientation Right hand weakness, now resolved. Clinical Findings: CT head revealed no acute changes with area of encephalomalacia in the right parietal region representing prior infarction. Treatment: 40 mg Lovenox injection, Plavix 75mg, CT head. Question: Do you agree with the impression of the TIA with right hand weakness and confusion per Dr. Jane's consult on 08/02? Please document a response in Progress Note or Discharge Summary. 1. Yes 2. No 3. Other, with explanation of clinical findings 4. Clinically undetermined, no explanation for clinical findings. PHYSICIAN RESPONSE Do you agree w/Consulting Dx?: Yes Please remember a lack of response to the above will prompt a phone page by CDI/Coding staff. In responding to this query, please exercise your independent professional judgment. The purpose of this communication is to more accurately reflect the complexity of your patients condition. The fact that a question is asked does not imply that any particular answer is desired or expected. Thank you for your timely response to this clarification. Requestors name: Heavenly Jacques CCS,CCDS Phone # ext [phone] or [phone] THIS PHYSICIAN QUERY FORM IS A PERMANENT PART OF THE MEDICAL RECORD HEAVENLY JACQUES Aug 03, 2019 14:36 KELTON NATHAN MD Aug 03, 2019 16:13
--- NOTE | 2019-08-03 16:17 | NUR ---
PT WAS EXERCISED FOR 6 MINUTES AND WALKED 900 FEET IN THAT TIME. SATS ON ROOM AIR ARE 86%. ON 1L OF O2 BY N/C SATS ARE 91%. LITERS OF O2 REQUIRED DURING EXERCISE TO TKS = OR >90% ARE 3. PT TOLERATED EXERCISE WELL, HR THE AT START WAS 79 BPM, AT FINISH WAS 88 BPM. SATS ON ROOM AIR AT REST 86% SATS ON 1L AT REST 91% SATS ON 3L W/EXERCISE 92%
[2019-08-03] MEDS: APIXABAN 5 MG (ELIQUIS) TABLET PO SCH (19:50)
[2019-08-03] MEDS: DOCUSATE SODIUM 100 MG (COLACE) CAP PO SCH (19:50)
[2019-08-03] MEDS: SENNOSIDES 8.6 MG (SENOKOT) TAB PO SCH (19:51)
[2019-08-03] MEDS ORDERED: traZODone 100 MG (DESYREL) TAB PO SCH (21:00)
[2019-08-03] MEDS ORDERED: PRAMIPEXOLE 0.5 MG TAB (MIRAPEX) PO SCH (21:00)
[2019-08-03] MEDS ORDERED: BUPRENORPHINE HCL 900 MCG MM SCH (21:00)
[2019-08-03] MEDS ORDERED: CLOPIDOGREL 75 MG (PLAVIX) TABLET PO SCH (21:00)
[2019-08-03] MEDS ORDERED: NON-FORMULARY MEDICATION 1 EA EA (Cariprazine Hydrochloride (Vraylar) 1.5 MG) PO SCH (21:00)
[2019-08-03] MEDS ORDERED: SIMvastatin 10 MG (ZOCOR) TAB PO SCH (21:00)
[2019-08-03] MEDS ORDERED: ENOXAPARIN 30 MG/0.3 ML (LOVENOX) SYR SC SCH (22:00)
[2019-08-04] VITALS (11 sets, daily range): BP systolic 88–132; BP diastolic 49–80
[2019-08-04 03:29] LABS: BASOPHILS % (AUTO) 0 % (0-10); EOSINOPHILS # (AUTO) 0.1 10^3/uL (0.0-0.3); EOSINOPHILS % (AUTO) 1 % (0-10); HEMATOCRIT 39 % (35-52); HEMOGLOBIN 12.6 G/DL (11.5-16.0); LYMPHOCYTES # (AUTO) 1.9 X 10^3 (1.0-4.0); LYMPHOCYTES % (AUTO) 13 % (12-44); MEAN CORPUSCULAR HEMOGLOBIN 31 PG (25-34); MEAN CORPUSCULAR HGB CONC 33 G/DL (32-36); MEAN CORPUSCULAR VOLUME 95 FL (80-99); MEAN PLATELET VOLUME 8.8 FL (7.4-10.4); MONOCYTES # (AUTO) 1.7 X 10^3 (0.0-1.0); MONOCYTES % (AUTO) 11 % (0-12); NEUTROPHILS # (AUTO) 11.3 X 10^3 (1.8-7.8); NEUTROPHILS % (AUTO) 76 % (42-75); PLATELET COUNT 283 10^3/uL (130-400); RED CELL DISTRIBUTION WIDTH 13.3 % (10.0-14.5); WHITE BLOOD COUNT 14.9 10^3/uL (4.3-11.0)
[2019-08-04 03:42] LABS: BUN/CREATININE RATIO 25; CALCIUM 9.1 MG/DL (8.5-10.1); CARBON DIOXIDE 25 MMOL/L (21-32); CHLORIDE 102 MMOL/L (98-107); CREATININE SERUM 0.73 MG/DL (0.60-1.30); GFR ESTIMATED > 60; GLUCOSE 111 MG/DL (70-105); MAGNESIUM 1.8 MG/DL (1.6-2.4); PHOSPHORUS 3.4 MG/DL (2.3-4.7); POTASSIUM 4.4 MMOL/L (3.6-5.0); SODIUM 138 MMOL/L (135-145)
--- NOTE | 2019-08-04 07:23 | Diagnostic Imaging Report ---
Indication: Atrial fibrillation, RVR, hypoxia. Examination: Single view chest from 08/04/2019. Comparison: 08/02/2019 Findings: Lungs hyperinflated but clear. Heart and pulmonary vasculature normal. No pneumothorax or effusions. Postoperative change cervical spine. Impression: 1. No acute process. 2. Not mentioned above mild density in the left perihilar region stable, followup recommended. Dictated by: Dictated on workstation # [id number]
[2019-08-04] MEDS: RT-ALBUTEROL SULF 2.5 MG/3 ML PRE-MIX VIAL INH SCH (07:44)
[2019-08-04] MEDS: ADVAIR HFA 115/21 MCG INHALER 8 GM IH SCH (07:45)
[2019-08-04] MEDS: NICOTINE 21 MG (NICODERM) PATCH TD SCH (08:10)
[2019-08-04] MEDS: DOCUSATE SODIUM 100 MG (COLACE) CAP PO SCH (08:11)
[2019-08-04] MEDS: SENNOSIDES 8.6 MG (SENOKOT) TAB PO SCH (08:11)
[2019-08-04] MEDS: PRAMIPEXOLE 0.5 MG TAB (MIRAPEX) PO SCH (08:11)
[2019-08-04] MEDS: APIXABAN 5 MG (ELIQUIS) TABLET PO SCH (08:11)
[2019-08-04] MEDS ORDERED: NICOTINE PATCH REMOVAL TP SCH (08:59)
[2019-08-04] MEDS ORDERED: APIX5TAB PO (09:51)
[2019-08-04] MEDS ORDERED: AMIO200T4 PO (09:51)
[2019-08-04] MEDS ORDERED: AMIODARONE 200 MG (CORDARONE) TAB PO SCH ×2 (10:00→21:00)
--- NOTE | 2019-08-04 10:21 | Cardiology Progress Note ---
Subjective Date Seen by Provider: Aug 04, 2019 Time Seen by Provider: 10:19 Subjective/Events-last exam Patient is laying down in bed, converted yesterday afternoon back to sinus rhythm and has been in sinus rhythm Review of Systems General: No Chills, No Night Sweats, No Fatigue, No Malaise, No Appetite, No Other HEENT: No Head Aches, No Visual Changes, No Eye Pain, No Ear Pain, No Dysphasia, No Sinus Congestion, No Post Nasal Drip, No Sore Throat, No Other Pulmonary: No Dyspnea, No Cough, No Pleuritic Chest Pain, No Other Cardiovascular: No: Chest Pain, Palpitations, Orthopnea, Paroxysmal Noc. Dyspnea, Edema, Lt Headedness, Other Objective-Cardiology Exam Last Set of Vital Signs Vital Signs 08/03/19 08/04/19 08/04/19 08/04/19 15:00 08:00 09:00 10:00 Temp 36.8 Pulse 91 Resp 18 B/P (MAP) 106/59 (75) Pulse Ox 95 O2 Delivery Nasal Cannula O2 Flow Rate 2.00 Capillary Refill : Less Than 3 Seconds I&O Intake and Output 08/04/19 00:00 Intake Total 1080 ml Output Total 1700 ml Balance -620 ml Intake Oral 1080 ml Output Urine Total 1700 ml # Voids 2 Daily Weight Change No General: Alert, Oriented X3, Cooperative HEENT: Atraumatic, PERRLA Neck: Supple, No JVD, No Thyromegaly Lungs: Clear to Auscultation, Normal Air Movement Heart: Regular Rate, Normal S1, Normal S2, No Murmurs Abdomen: Normal Bowel Sounds, Soft, No Tenderness, No Hepatosplenomegaly, No Masses Extremities: No Clubbing, No Cyanosis, No Edema, Normal Pulses, No Tenderness/Swelling Skin: No Rashes, No Breakdown, No Significant Lesion Neuro: Normal Gait, Normal Speech, Strength at 5/5 X4 Ext, Normal Tone, Sensation Intact Psych/Mental Status: Mental Status NL, Mood NL Results Lab Laboratory Tests 08/04/19 03:03 A/P-Cardiology Admission Diagnosis AFib with RVR COPD HLP Tobaccoism Assessment/Plan Parooxysmal atrial fibrillation, back to sinus rhythm on cardizem, I will start Eliquis and Amiodarone and follow as an outpatient TIA with right hand weakness and confusion, now resolved. CT Head revealed no acute changes with area of encephalomalacia in the right parietal region representing prior infarct. COPD with nocturnal hypoxemia HLP- maintained on statin as outpatient Tobaccoism- educated on the importance of smoking cessation Clinical Quality Measures DVT/VTE Risk/Contraindication: Risk Factor Score Per Nursin RFS Level Per Nursing on Admit: 4+=Very High BERNARD ONEILL MD Aug 04, 2019 10:21 am
--- NOTE | 2019-08-04 11:40 | NUR ---
AYLINALBA Florentino demonstrates understanding of discharge instructions and accurately returns instructions upon questioning. Copy of Post-Discharge Instructions and Medication Discharge Instructions given to PATIENT. AYLINESTRADAALBA Florentino is able to manage continuing needs after discharge. Patients belongings returned to PATIENT. Skin dry and intact; no breakdown noted. Patient discharged from 8-1 on at 1131 . ALBA VIERA left floor via WHEEL CHAIR, accompanied by ELEVATED GUARD. PATIENT LEFT VIA PRIVATE VEHICLE WITH SON, PATIENT VOICED UNDERSTANDING OF DISCHARGE INSTRUCTIONS.
--- NOTE | 2019-08-04 12:56 | Discharge Summary ---
Discharge Summary Hospital Course Was the Problem List Reviewed?: Yes Problems/Dx: (1) Atrial fibrillation with RVR Status: Acute (2) Chronic respiratory failure with hypoxia, on home O2 therapy Status: Chronic Hospital Course Date of Admission: Aug 02, 2019 at 22:40 Admission Diagnosis : atrial fibrillation with rapid ventricular response Family Physician/Provider: Alphonso Son DO Date of Discharge: 08/04/19 Discharge Diagnosis: atrial fibrillation with rapid ventricular response Hospital Course: Naila Zhao is a 64-year-old female with past medical history of COPD on nocturnal oxygen who was admitted with atrial fibrillation with rapid ventricular response. This was a new diagnosis. She was started on IV Cardizem and eventually converted spontaneously. She was started on oral amiodarone and Eliquis. Cardiology followed her while she was in the hospital and she will follow-up with Dr. Jane in about 2 weeks. Her symptoms on presentation were consistent with a TIA. Her CT head showed evidence of a prior infarct but no acute infarction. She required supplemental oxygen throughout her stay and an oxygen evaluation was done and showed that she needed 1 L continuously and 3 L with activity. She should follow-up with her primary care physician. Labs and Pending Lab Test: Laboratory Tests 08/04/19 03:03: White Blood Count 14.9H, Red Blood Count 4.06L, Hemoglobin 12.6, Hematocrit 39, Mean Corpuscular Volume 95, Mean Corpuscular Hemoglobin 31, Mean Corpuscular Hemoglobin Concent 33, Red Cell Distribution Width 13.3, Platelet Count 283, Mean Platelet Volume 8.8, Neutrophils (%) (Auto) 76H, Lymphocytes (%) (Auto) 13, Monocytes (%) (Auto) 11, Eosinophils (%) (Auto) 1, Basophils (%) (Auto) 0, Neutrophils # (Auto) 11.3H, Lymphocytes # (Auto) 1.9, Monocytes # (Auto) 1.7H, Eosinophils # (Auto) 0.1, Basophils # (Auto) 0.0, Sodium Level 138, Potassium Level 4.4, Chloride Level 102, Carbon Dioxide Level 25, Anion Gap 11, Blood Urea Nitrogen 18, Creatinine 0.73, Estimat Glomerular Filtration Rate > 60, BUN/Creatinine Ratio 25, Glucose Level 111H, Calcium Level 9.1, Phosphorus Level 3.4, Magnesium Level 1.8 Microbiology 08/03/19 MRSA Screen - Final, Complete MRSA not isolated 08/02/19 Urine Culture - Final, Complete 3 or more isolates Home Meds Active Amiodarone HCl 200 Mg Tablet 200 Mg PO UD take 2 tabs twice daily for 2 weeks then take one tab twice daily Eliquis (Apixaban) 5 Mg Tablet 5 Mg PO BID Reported Iprat-Albut 0.5-3(2.5) mg/3 ml (Ipratropium/Albuterol Sulfate) 3 Ml Ampul.neb 3 Ml PO Q4 -6H PRN Tylenol Pm Ex-Strength Caplet (Acetaminophen/Diphenhydramine) 1 Each Tablet 2 Each PO HS PRN One Daily Multivitamin (Multivitamin) 1 Each Tablet 1 Each PO DAILY Calcium 500 + Vit D 400 Tablet (Calcium Carbonate/Vitamin D3) 1 Each Tablet 1 Each PO DAILY Fish Oil 1,200 mg Fish Oil (Fish Oil/Dha/Epa) 1 Each Capsule 1 Each PO DAILY Anoro Ellipta 62.5-25 Mcg INH (Umeclidinium Brm/Vilanterol Tr) 1 Each Blst.w.dev 1 Puff IN DAILY PRN Pramipexole Dihydrochloride (Pramipexole Di-HCl) 1 Mg Tablet 1 Mg PO DAILY Pramipexole Dihydrochloride (Pramipexole Di-HCl) 0.5 Mg Tablet 0.5 Mg PO HS Ventolin Hfa (Albuterol Sulfate) 18 Gm Hfa.aer.ad 2 Puff IN Q6H PRN Alprazolam 0.25 Mg Tablet 0.25 Mg PO BID PRN Belbuca (Buprenorphine HCl) 900 Mcg Film 900 Mcg MM BID Vraylar (Cariprazine Hydrochloride) 1.5 Mg Capsule 1.5 Mg PO HS Trazodone HCl 100 Mg Tablet 100 Mg PO HS Oxycodone HCl 20 Mg Tablet 20 Mg PO TID PRN Lovastatin 20 Mg Tablet 20 Mg PO HS Assessment/Pt Instructions Take medications as prescribed. Begin taking amiodarone and Eliquis for atrial fibrillation. Begin using 1 L of oxygen continuously and 3 L with activity. Follow-up with your primary care physician. Follow-up with cardiology. Discharge Planning: <30 minutes discharge planning Discharge Instructions Discharge Diet: Low Sodium Diet Activity as Tolerated: Yes Discharge Physical Examination Vital Signs Vital Signs Date Time Temp Pulse Resp B/P (MAP) Pulse Ox O2 Delivery O2 Flow Rate FiO2 08/04/19 11:39 36.8 91 18 106/59 95 Nasal Cannula 2.00 General Appearance: No Apparent Distress, Chronically ill, Cachetic Respiratory: No Respiratory Distress, Decreased Breath Sounds Cardiovascular: Regular Rate, Rhythm, No Edema, No Murmur Gastrointestinal: Normal Bowel Sounds, Non Tender, Soft Extremity: Normal Inspection, Non Tender, No Pedal Edema Skin: Normal Color, Warm/Dry Neurologic/Psychiatric: Alert, Oriented x3, No Motor/Sensory Deficits, Normal Mood/Affect Allergies: Coded Allergies: No Known Drug Allergies (Unverified , 07/25/13) Copy Copies To 1: ALPHONSO SON DO Discharge Summary Date of Admission Aug 02, 2019 at 22:40 Date of Discharge Aug 04, 2019 at 11:31 Discharge Date: Aug 04, 2019 Discharge Time: 11:31 Admission Diagnosis Atrial fibrillation with rapid ventricular response Consults/Procedures Consulations cardiology Discharge Diagnosis Atrial fibrillation with rapid ventricular response (1) Atrial fibrillation with RVR Status: Acute (2) Chronic respiratory failure with hypoxia, on home O2 therapy Status: Chronic Clinical Quality Measures DVT/VTE Risk/Contraindication: Risk Factor Score Per Nursin RFS Level Per Nursing on Admit: 4+=Very High KELTON NATHAN MD Aug 04, 2019 12:56
== END 2019-08-04 11:31 | disposition home or self-care (01) | DRG 309 ==
LOC: EDUNIT# 21:18 → ER FS 21:19 → ICU 22:40
PROVIDERS: ADMIT Internal Medicine; ATTEND Internal Medicine
DX: I48.0 Paroxysmal atrial fibrillation (principal); G45.9 Transient cerebral ischemic attack, unspecified; J96.11 Chronic respiratory failure with hypoxia; R64 Cachexia; Z68.1 Body mass index [BMI] 19.9 or less, adult; J44.9 Chronic obstructive pulmonary disease, unspecified; R29.898 Other symptoms and signs involving the musculoskeletal system; D72.829 Elevated white blood cell count, unspecified; M62.838 Other muscle spasm; M19.91 Primary osteoarthritis, unspecified site; F17.210 Nicotine dependence, cigarettes, uncomplicated; G25.81 Restless legs syndrome; F32.9 Major depressive disorder, single episode, unspecified; F41.9 Anxiety disorder, unspecified; E78.5 Hyperlipidemia, unspecified; R41.0 Disorientation, unspecified; Z99.81 Dependence on supplemental oxygen; Z87.01 Personal history of pneumonia (recurrent)
CPT/HCPCS: 36415; 70450; 71045; 80048; 80053; 80076; 80306; 80320; 81000; 82248; 82728; 83615; 83735; 84100; 84145; 84484; 85007; 85025; 85027; 85379; 85652; 86141; 87081; 87088; 93005; 94640; 94761

== ENCOUNTER 2020-08-17 09:41 | Observation (INO) | payer MEDICARE ==
[~2020-08-17] VITALS: Ht 160 cm; Wt 58.9 kg
[~2020-08-17 09:41] MED LIST changes: +ACET-3075 PO; +ALBU18HF2 IN; +ALPR.25T PO; +AMIO200T6 PO; +APIX5TAB PO; +BUPR900F3 MM; +CALC-880 PO; +CARI1.5C PO; +CLOP75TA28 PO; +FISH1CAP15 PO; +IPRA3AMP31 PO; +MULT-618 PO; +NF-EXCEDMI PO; +OXYC20TA3 PO; +PRAM0.5T9 PO; +PRAM1TAB5 PO; +TRAZ-227 PO; +UMEC1BLS IN
--- NOTE | 2020-08-17 10:03 | Diagnostic Imaging Report ---
PROCEDURE: CT head without contrast. TECHNIQUE: Multiple contiguous axial images were obtained through the brain without the use of intravenous contrast. Auto Exposure Controls were utilized during the CT exam to meet ALARA standards for radiation dose reduction. Indication: Altered mental status with left-sided weakness, headache, and dizziness. Comparison: 08/02/2019. Discussion: Encephalomalacia is again noted within the right frontal lobe, chronic. No acute intracranial hemorrhage, mass, midline shift, or hydrocephalus. The ventricles and sulci are normal size and configuration for age. Previous right temporal craniotomy is again noted, stable. The orbits, sinuses, mastoid air cells, and calvarium are otherwise unremarkable. Impression: 1. Stable senescent changes as described. No acute intracranial abnormality identified. Dictated by: Dictated on workstation # [id number]
[2020-08-17 10:04] LABS: BASOPHILS # (AUTO) 0.1 10^3/uL (0.0-0.1); BASOPHILS % (AUTO) 0 % (0-10); EOSINOPHILS # (AUTO) 0.1 10^3/uL (0.0-0.3); EOSINOPHILS % (AUTO) 1 % (0-10); HEMATOCRIT 44 % (35-52); HEMOGLOBIN 14.4 G/DL (11.5-16.0); LYMPHOCYTES # (AUTO) 2.2 X 10^3 (1.0-4.0); LYMPHOCYTES % (AUTO) 18 % (12-44); MEAN CORPUSCULAR HEMOGLOBIN 30 PG (25-34); MEAN CORPUSCULAR HGB CONC 33 G/DL (32-36); MEAN CORPUSCULAR VOLUME 91 FL (80-99); MEAN PLATELET VOLUME 8.4 FL (7.4-10.4); MONOCYTES # (AUTO) 1.2 X 10^3 (0.0-1.0); MONOCYTES % (AUTO) 10 % (0-12); NEUTROPHILS # (AUTO) 8.9 X 10^3 (1.8-7.8); NEUTROPHILS % (AUTO) 71 % (42-75); PLATELET COUNT 423 10^3/uL (130-400); WHITE BLOOD COUNT 12.5 10^3/uL (4.3-11.0)
[2020-08-17] MEDS ORDERED: HYDROcodone/APAP 5 MG/325 MG (LORTAB) TAB PO ONE (10:15)
[2020-08-17 10:16] LABS: PROTHROMBIN TIME PATIENT 13.1 SEC (12.2-14.7)
--- NOTE | 2020-08-17 10:25 | ED General ---
General Chief Complaint: Neuro-Stroke Like Symptoms Stated Complaint: LEFT EXTREMITY Source of Information: Patient History of Present Illness Date Seen by Provider: Aug 17, 2020 Time Seen by Provider: 09:41 Initial Comments Patient is a 65-year-old female with history of COPD, migraine headaches, atrial fibrillation, currently anticoagulated on Eliquis, migraines and anxiety who presents with seizure episode followed by a left upper and lower extremity weakness while parked outside of a local restaurant just prior to ED arrival. patient states believes she was conscious throughout the experience. She states she first noticed loss of depth perception, which was followed by tremors involving both arms and left upper and left lower extremity weakness. Patient was unresponsive with shallow respirations on EMS arrival. Patient alert with residual left-sided weakness on ED arrival. Patient brought straight to CT scan for valuation of possible stroke. Upon return from CT scanner, the patient complained above right temporal headache different than her typical migraines. Patient's weakness fully resolved upon my evaluation. No recent illnesses. No missed medications other than this morning's medications. No other symptoms or complaints. Patient is a smoker. Timing/Duration: 1/2 Hour Severity: Moderate Modifying Factors: improves with Other Associated Systoms: Other Allergies and Home Medications Allergies Coded Allergies: No Known Drug Allergies (Unverified , 07/25/13) Home Medications ALPRAZolam 0.25 Mg Tablet, 0.25 MG PO BID PRN for ANXIETY, (Reported) Acetaminophen/Diphenhydramine 1 Each Tablet, 2 EACH PO HS PRN for SLEEP, (Reported) Albuterol Sulfate 18 Gm Hfa.aer.ad, 2 PUFF IN Q6H PRN for SHORTNESS OF BREATH, (Reported) Amiodarone HCl 200 Mg Tablet, 200 MG PO UD take 2 tabs twice daily for 2 weeks then take one tab twice daily Prescribed by: BERNARD ONEILL on 08/04/1953 Apixaban 5 Mg Tablet, 5 MG PO BID Prescribed by: BERNARD ONEILL on 08/04/1953 Buprenorphine HCl 900 Mcg Film, 900 MCG MM BID, (Reported) Calcium Carbonate/Vitamin D3 1 Each Tablet, 1 EACH PO DAILY, (Reported) Cariprazine Hydrochloride 1.5 Mg Capsule, 1.5 MG PO HS, (Reported) Fish Oil/Dha/Epa 1 Each Capsule, 1 EACH PO DAILY, (Reported) Ipratropium/Albuterol Sulfate 3 Ml Ampul.neb, 3 ML PO Q4 -6H PRN for SHORTNESS OF BREATH, (Reported) Lovastatin 20 Mg Tablet, 20 MG PO HS, (Reported) Multivitamin 1 Each Tablet, 1 EACH PO DAILY, (Reported) Oxycodone HCl 20 Mg Tablet, 20 MG PO TID PRN for PAIN-SEVERE (8-10), (Reported) Pramipexole Di-HCl 0.5 Mg Tablet, 0.5 MG PO HS, (Reported) Pramipexole Di-HCl 1 Mg Tablet, 1 MG PO DAILY, (Reported) Trazodone HCl 100 Mg Tablet, 100 MG PO HS, (Reported) Umeclidinium Brm/Vilanterol Tr 1 Each Blst.w.dev, 1 PUFF IN DAILY PRN for SHORTNESS OF BREATH, (Reported) Patient Home Medication List Home Medication List Reviewed: Yes Review of Systems Review of Systems Constitutional: see HPI EENTM: no symptoms reported Respiratory: no symptoms reported Cardiovascular: no symptoms reported Gastrointestinal: no symptoms reported Genitourinary: no symptoms reported Musculoskeletal: no symptoms reported Skin: no symptoms reported Psychiatric/Neurological: No Symptoms Reported Hematologic/Lymphatic: No Symptoms Reported Immunological/Allergic: no symptoms reported All Other Systems Reviewed Negative Unless Noted: Yes Past Hmgueok-Jrftvs-Bydwhn Hx Past Med/Social Hx: Reviewed Nursing Past Med/Soc Hx Patient Social History Type Used: Cigarettes 2nd Hand Smoke Exposure: Yes Immunizations Up To Date Tetanus Booster (TDap): More than 5yrs Date of Pneumonia Vaccine: May 02, 2016 Date of Influenza Vaccine: Jul 22, 2013 Past Medical History Surgeries: Yes (Brain "PUS POCKETS ON BRAIN") Orthopedic Respiratory: Yes Asthma, Pneumonia, COPD Cardiac: Yes (WAS TOLD SHE HAD A HEART MURMUR ONE TIME SEVERAL YRS AGO, ) 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) Reproductive Disorders: No Gastrointestinal: No Musculoskeletal: Yes Arthritis, Spasms Endocrine: No Cancer: No Psychosocial: No Integumentary: No Blood Disorders: No Family Medical History Cancer 09 SISTER (BREAST) Family history: Arthritis 03 FATHER 03 MOTHER Family history: Cardiovascular disease 03 FATHER 03 MOTHER Family history: Hypertension 03 MOTHER Heart disease 03 MOTHER History of - respiratory disease 03 FATHER 03 MOTHER 09 BROTHER 09 SISTER Myocardial infarction 03 FATHER 03 MOTHER No Family History of: Abdominal aortic aneurysm Alcoholism Congestive heart failure Dementia Family history: Allergy Family history: Alzheimer's disease Family history: Asthma Family history: Diabetes mellitus Family history: Glaucoma Family history: Thyroid disorder Hereditary disease History of - anemia Kidney disease Parkinson's disease Prostate cancer Psychotic disorder Seizure disorder Stroke Physical Exam Vital Signs Vital Signs - First Documented 08/17/20 09:45 Temp 36.7 Pulse 74 Resp 15 B/P (MAP) 143/72 (95) Pulse Ox 92 O2 Delivery Room Air Capillary Refill : Height, Weight, BMI Height: 5'3.00" Weight: 100lbs. 0oz. 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0 G/DL Hematocrit 44 35-52 % Mean Corpuscular Volume 91 80-99 FL Mean Corpuscular Hemoglobin 30 25-34 PG Mean Corpuscular Hemoglobin Concent 33 32-36 G/DL Red Cell Distribution Width 13.2 10.0-14.5 % Platelet Count 423 H 130-400 10^3/uL Mean Platelet Volume 8.4 7.4-10.4 FL Immature Granulocyte % (Auto) 0 % Neutrophils (%) (Auto) 71 42-75 % Lymphocytes (%) (Auto) 18 12-44 % Monocytes (%) (Auto) 10 0-12 % Eosinophils (%) (Auto) 1 0-10 % Basophils (%) (Auto) 0 0-10 % Neutrophils # (Auto) 8.9 H 1.8-7.8 X 10^3 Lymphocytes # (Auto) 2.2 1.0-4.0 X 10^3 Monocytes # (Auto) 1.2 H 0.0-1.0 X 10^3 Eosinophils # (Auto) 0.1 0.0-0.3 10^3/uL Basophils # (Auto) 0.1 0.0-0.1 10^3/uL Immature Granulocyte # (Auto) 0.0 0.0-0.1 10^3/uL Prothrombin Time 13.1 12.2-14.7 SEC INR Comment 1.0 0.8-1.4 Activated Partial Thromboplast Time 31 24-35 SEC Sodium Level 134 L 135-145 MMOL/L Potassium Level 4.0 3.6-5.0 MMOL/L Chloride Level 97 L 98-107 MMOL/L Carbon Dioxide Level 24 21-32 MMOL/L Anion Gap 13 5-14 MMOL/L Blood Urea Nitrogen 11 7-18 MG/DL Creatinine 0.69 0.60-1.30 MG/DL Estimat Glomerular Filtration Rate > 60 BUN/Creatinine Ratio 16 Glucose Level 111 H 70-105 MG/DL Calcium Level 9.2 8.5-10.1 MG/DL Corrected Calcium 9.1 8.5-10.1 MG/DL Total Bilirubin 0.2 0.1-1.0 MG/DL Aspartate Amino Transf (AST/SGOT) 34 5-34 U/L Alanine Aminotransferase (ALT/SGPT) 41 0-55 U/L Alkaline Phosphatase 92 40-136 U/L Troponin I < 0.30 <0.30 NG/ML Total Protein 7.0 6.4-8.2 GM/DL Albumin 4.1 3.2-4.5 GM/DL My Orders Orders - RYAN HAYNES DO Ct Head Wo (08/17/20 09:44) Cbc With Automated Diff (08/17/20 09:45) Comprehensive Metabolic Panel (08/17/20 09:45) Protime With Inr (08/17/20 09:45) Partial Thromboplastin Time (08/17/20 09:45) Ekg-Prn For Chest Pain Or Rhyt (08/17/20 09:45) Chest 1 View Ap/Pa Only (08/17/20 09:45) Probnp Fs (08/17/20 09:45) Troponin I Fs (08/17/20 09:45) Accucheck Fasting (08/17/20 09:46) Hydrocodone/Apap 5/325 Tablet (Lortab 5 (08/17/20 10:15) Alcohol (08/17/20 10:18) Drug Screen Stat (Urine) (08/17/20 10:18) Lorazepam Injection (Ativan Injection) (08/17/20 10:30) Medications Given in ED Current Medications Medications Dose Ordered Sig/Inder Route Start Time Stop Time Status Last Admin Dose Admin Acetaminophen/ Hydrocodone Bitart 1 ea ONCE ONCE PO 08/17/20 10:15 08/17/20 10:16 DC 08/17/20 10:23 1 EA Lorazepam 0.5 mg ONCE ONCE IVP 08/17/20 10:30 08/17/20 10:31 DC 08/17/20 10:23 0.5 MG Vital Signs/I&O 08/17/20 09:45 Temp 36.7 Pulse 74 Resp 15 B/P (MAP) 143/72 (95) Pulse Ox 92 O2 Delivery Room Air Capillary Refill : Departure Communication (Admissions) CT head: No acute disease per radiology report. EKG: Normal sinus rhythm, rate 70, AL interval, 148, QRS, 102, QTc 435, nonspecific ST-T wave changes Patient' EKG: Normal sinus rhythm. New onset seizure in the setting of stroke, etiology unclear. I suspect stroke accompanied with seizure versus Asif's paralysis. Patient currently in normal sinus rhythm and states she has not missed Eliquis. Patient is also on Xanax and may have had a missed dose contributing to seizure episode. Ativan given in headache addressed. Alcohol and tox screen pending. Labs otherwise were otherwise unremarkable. Will transfer to [place] to the hospital service for further evaluation and treatment. Dr. Lemus accepts care of the patient. Impression Primary Impression: Seizure-like activity Additional Impressions: Left-sided weakness History of COPD Paroxysmal atrial fibrillation Disposition: ADMITTED INPATIENT Condition: Stable Admissions Decision to Admit Reason: Admit from ER (General) Decision to Admit/Date: Aug 17, 2020 Time/Decision to Admit Time: 10:41 Transfer Method of Transfer: EMS Departure-Patient Inst. Referrals: MATTHEW SON DO (PCP/Family) Primary Care Physician RYAN HAYNES DO Aug 17, 2020 10:25
[2020-08-17] MEDS ORDERED: LORazepam INJ 2 MG/ML (ATIVAN) VIAL IVP ONE (10:30)
[2020-08-17 10:32] LABS: ALANINE AMINOTRANSFERASE 41 U/L (0-55); ALKALINE PHOSPHATASE 92 U/L (40-136); BILIRUBIN,TOTAL 0.2 MG/DL (0.1-1.0); BUN/CREATININE RATIO 16; CALCIUM 9.2 MG/DL (8.5-10.1); CARBON DIOXIDE 24 MMOL/L (21-32); CHLORIDE 97 MMOL/L (98-107); CREATININE SERUM 0.69 MG/DL (0.60-1.30); GFR ESTIMATED > 60; GLUCOSE 111 MG/DL (70-105); SODIUM 134 MMOL/L (135-145)
[2020-08-17 10:33] LABS: ALBUMIN 4.1 GM/DL (3.2-4.5)
--- NOTE | 2020-08-17 10:37 | Diagnostic Imaging Report ---
Portable erect AP chest at 9:51. Indication: Shortness of breath The heart size is within normal limits and stable when compared to 08/04/2019. The lungs remain clear. There is no sign of failure, pneumonia or pleural effusion. The prior exam did note a small area of increased density in the left perihilar region. That finding does not appear to have changed adversely since the prior exam. The mediastinum is not widened. The osseous structures are intact. With orthopedic plate and screw fixation device overlying the lower cervical spine seen previously is again evident and no different. Impression: 1. There is no evidence for active disease. 2. If clinical concern regarding an underlying abnormality persists, then CT of the chest would be recommended for further study. Dictated by: Dictated on workstation # [id number]
[2020-08-17 12:31] VITALS: BP 139/78
[2020-08-17] MEDS: CATHETER FLUSH 10 ML SYR IV SCH ×2 (13:11→19:16)
[2020-08-17] MEDS ORDERED: CATHETER FLUSH 10 ML SYR IV PRN (13:15)
[2020-08-17] MEDS ORDERED: LORazepam 1 MG (ATIVAN) TAB PO SCH (14:00)
[2020-08-17 14:06] LABS: AMPHETAMINE SCREEN, URINE NEGATIVE (NEGATIVE); BARBITURATE SCREEN URINE NEGATIVE (NEGATIVE); BENZODIAZEPINES SCREEN URINE NEGATIVE (NEGATIVE); CANNABINOID SCREEN, URINE NEGATIVE (NEGATIVE); COCAINE SCREEN URINE NEGATIVE (NEGATIVE); METHADONE STAT NEGATIVE (NEGATIVE); METHAMPHETAMINE SCREEN URINE S NEGATIVE (NEGATIVE); OPIATE SCREEN URINE POSITIVE (NEGATIVE); OXYCODONE STAT POSITIVE (NEGATIVE); PROPOXYPHENE STAT NEGATIVE (NEGATIVE); TRICYCLIC ANTIDEPRESSANTS SCRE POSITIVE (NEGATIVE)
[2020-08-17 16:20] VITALS: BP 127/73
[2020-08-17] MEDS: LORazepam 1 MG (ATIVAN) TAB PO SCH (19:16)
[2020-08-17 20:00] VITALS: BP 136/72
[2020-08-17 23:33] VITALS: BP 128/75
[2020-08-18 03:21] VITALS: BP 142/69
[2020-08-18] MEDS: LORazepam 1 MG (ATIVAN) TAB PO SCH ×2 (03:28→11:33)
[2020-08-18] MEDS: CATHETER FLUSH 10 ML SYR IV SCH ×2 (03:30→16:26)
[2020-08-18 05:49] LABS: BASOPHILS # (AUTO) 0.1 10^3/uL (0.0-0.1); BASOPHILS % (AUTO) 0 % (0-10); EOSINOPHILS # (AUTO) 0.1 10^3/uL (0.0-0.3); EOSINOPHILS % (AUTO) 1 % (0-10); HEMATOCRIT 46 % (35-52); HEMOGLOBIN 14.8 g/dL (11.5-16.0); LYMPHOCYTES # (AUTO) 2.6 10^3/uL (1.0-4.0); LYMPHOCYTES % (AUTO) 21 % (12-44); MEAN CORPUSCULAR HEMOGLOBIN 30 pg (25-34); MEAN CORPUSCULAR HGB CONC 32 g/dL (32-36); MEAN CORPUSCULAR VOLUME 94 fL (80-99); MEAN PLATELET VOLUME 8.5 fL (9.0-12.2); MONOCYTES # (AUTO) 1.4 10^3/uL (0.0-1.0); MONOCYTES % (AUTO) 11 % (0-12); NEUTROPHILS # (AUTO) 8.2 10^3/uL (1.8-7.8); NEUTROPHILS % (AUTO) 66 % (42-75); PLATELET COUNT 395 10^3/uL (130-400); WHITE BLOOD COUNT 12.4 10^3/uL (4.3-11.0)
[2020-08-18 06:04] LABS: ALBUMIN 3.8 GM/DL (3.2-4.5); CHLORIDE 102 MMOL/L (98-107); POTASSIUM 4.2 MMOL/L (3.6-5.0); SODIUM 139 MMOL/L (135-145)
[2020-08-18 06:06] LABS: CALCIUM 9.1 MG/DL (8.5-10.1)
[2020-08-18 06:07] LABS: GLUCOSE 104 MG/DL (70-105); TOTAL PROTEIN 6.9 GM/DL (6.4-8.2)
[2020-08-18 06:08] LABS: CARBON DIOXIDE 25 MMOL/L (21-32)
[2020-08-18 06:09] LABS: BILIRUBIN,TOTAL 0.3 MG/DL (0.1-1.0)
[2020-08-18 06:10] LABS: ALKALINE PHOSPHATASE 78 U/L (40-136); CREATININE SERUM 0.78 MG/DL (0.60-1.30); GFR ESTIMATED > 60
[2020-08-18 06:11] LABS: BUN/CREATININE RATIO 17
[2020-08-18 06:13] LABS: ALANINE AMINOTRANSFERASE 47 U/L (0-55)
[2020-08-18 08:00] VITALS: BP 168/75
[2020-08-18] MEDS ORDERED: NICOTINE 21 MG (NICODERM) PATCH ONE (11:20)
--- NOTE | 2020-08-18 13:38 | Discharge Inst-Simple/Standard ---
Discharge Inst-Standard Discharge Medications New, Converted or Re-Newed RX: Transmitted to Pharmacy Patient Instructions/Follow Up Plan of Care/Instructions/FU: Please continue to take your medications as written. Please follow up with your primary care provider to follow up this hospital stay. Activity as Tolerated: Yes Discharge Diet: Cardiac Diet Return to The Hospital For: Weakness, slurred speech, confusion, chest pain, shortness of breath, fever, if you feel you are getting worse. BRODERICK MULLER MD Aug 18, 2020 13:38
--- NOTE | 2020-08-18 13:53 | Short Stay Summary-Hospitalist ---
History of Present Illness HPI/Chief Complaint Pt is a 65yoCF with a PMH of atrial fibrillation, HTN, HLD who presented to the ER due to left sided weakness. She states she was feeling well yesterday but developed a headache as she and her son were about to head to get breakfast. She was driving and missed a turn so decided to let her son start driving. Shortly after that she started having shaking in her whole body and was concerned she was having a seizure. She did not loss consciousness, remembers the entire event, did not suffer incontinence or bite her tongue. She has no history of seizures. After this event she could not move her left sided very well and EMS stated she was dragging her leg. Head CT was done and was negative for bleed and she was admitted here fro stroke eveluation. Upon arrival here her symptoms resolved and were completely gone by the time Dr Lemus examined her last night. She states today that she feels well and has no deficits. She is requesting discharge home. Source: patient Date Seen 08/18/20 Time Seen by a Provider: 10:30 Attending Physician Keeley Lemus MD PCP Alphonso Mireles DO Referring Physician Date of Admission Aug 17, 2020 at 12:32 Home Medications & Allergies Home Medications Reviewed patient Home Medication Reconciliation performed by pharmacy medication reconciliations cartography technician and/or nursing. Patients Allergies have been reviewed. Allergies Allergies Coded Allergies No Known Drug Allergies (Unverified08/17/20) Past Gwdjegf-Ciugcn-Thvlti Hx Past Med/Social Hx: Reviewed Nursing Past Med/Soc Hx Patient Social History Alcohol Use: Denies Use Recreational Drug Use: No Smoking Status: Current Everyday Smoker Type Used: Cigarettes 2nd Hand Smoke Exposure: Yes Recent Foreign Travel: No Contact w/other who traveled: No Recent Hopitalizations: No Recent Infectious Disease Expo: No Immunizations Up To Date Tetanus Booster (TDap): More than 5yrs Date of Pneumonia Vaccine: May 02, 2016 Date of Influenza Vaccine: Jan 31, 2020 Seasonal Allergies Seasonal Allergies: No Past Medical History Surgeries: Neurological (brain abscess resections), Orthopedic Cardiac: Atrial Fibrillation Reproductive: No Musculoskeletal: Arthritis, Spasms History of Blood Disorders: No Family History Cancer 09 SISTER (BREAST) Family history: Arthritis 03 FATHER 03 MOTHER Family history: Cardiovascular disease 03 FATHER 03 MOTHER Family history: Hypertension 03 MOTHER Heart disease 03 MOTHER History of - respiratory disease 03 FATHER 03 MOTHER 09 BROTHER 09 SISTER Myocardial infarction 03 FATHER 03 MOTHER No Family History of: Abdominal aortic aneurysm Alcoholism Congestive heart failure Dementia Family history: Allergy Family history: Alzheimer's disease Family history: Asthma Family history: Diabetes mellitus Family history: Glaucoma Family history: Thyroid disorder Hereditary disease History of - anemia Kidney disease Parkinson's disease Prostate cancer Psychotic disorder Seizure disorder Stroke Review of Systems Constitutional: No chills, No fever EENTM: no symptoms reported Respiratory: no symptoms reported Cardiovascular: no symptoms reported Gastrointestinal: no symptoms reported Genitourinary: no symptoms reported Musculoskeletal: no symptoms reported Skin: no symptoms reported Psychiatric/Neurological: See HPI Physical Exam Physical Exam Vital Signs Vital Signs - First Documented 08/17/20 08/18/20 09:45 03:26 Temp 36.7 Pulse 74 Resp 15 B/P (MAP) 143/72 (95) Pulse Ox 92 O2 Delivery Room Air O2 Flow Rate 3.00 Capillary Refill : Less Than 3 Seconds Height, Weight, BMI Height: 5'3.00" Weight: 100lbs. 0oz. 45.450163nc; 23.00 BMI Method:Stated General Appearance: No Apparent Distress, Chronically ill, Thin Eyes: Bilateral Eye Normal Inspection, Bilateral Eye PERRL HEENT: PERRL/EOMI, Pharynx Normal, Moist Mucous Membranes Neck: Full Range of Motion, Non Tender, Supple Respiratory: Chest Non Tender, Lungs Clear Cardiovascular: Regular Rate, Rhythm, No Edema, No Murmur Gastrointestinal: Normal Bowel Sounds, Non Tender, Soft Neurologic/Psychiatric: Alert, Oriented x3, Normal Mood/Affect; No Aphasia, No Facial Droop, No Motor Weakness, No Sensory Deficit Skin: Normal Color Lymphatic: No Adenopathy Results Results/Procedures Labs Laboratory Tests 08/18/20 05:27 Patient resulted labs reviewed. Imaging: Reviewed Imaging Report Short Stay Diagnosis Discharge Diagnosis-Short Stay Admission Diagnosis Left sided weakness Final Discharge Diagnosis Left sided weakness Conclusion Plan Left sided weakness Likely TIA though I'm not certain this explains the shaking prior to this Not consistent with a seizure Head CT negative Brain MRI negative for acute infarct Patient insistent on going home, DC to home with close follow up with Dr iMreles- advised no driving due to concern for seizure HTN HLD Atrial Fibrillation Continue home meds Tobacco abuse Advised smoking cessation Patient states she's not ready Diagnosis/Problems Diagnosis/Problems (1) Left-sided weakness Status: Acute (2) Paroxysmal atrial fibrillation Status: Acute (3) History of COPD Status: Acute Copy Copies To 1: ALPHONSO MIRELES KATELYN M MD Aug 18, 2020 13:53
[2020-08-18] MEDS ORDERED: GADOBUTROL 7.5 MMOL/7.5 ML (GADAVIST) VIAL IV ONE (14:15)
[2020-08-18 16:00] VITALS: BP 128/68
--- NOTE | 2020-08-18 16:28 | Diagnostic Imaging Report ---
EXAMINATION: MR imaging brain with and without contrast. TECHNIQUE: Multiplanar, multisequence MR imaging of the brain was performed with and without contrast. HISTORY: Seizure-like symptoms, stroke like symptoms, prior brain abscess. COMPARISON: None available. FINDINGS: The yan-white matter differentiation is normal. No mass effect or midline shift. The ventricles are normal in size and configuration. Basilar cisterns are patent. No evidence for acute ischemia on diffusion weighted images. No hemorrhage is seen on the susceptibility weighted images. There are no intra- or extra-axial fluid collections. The pituitary gland and posterior fossa are normal. Upper cervical spinal cord signal intensity is normal. Thalamus and basal ganglia are normal. Normal flow voids are seen in the intracranial vasculature. There has been a right-sided craniotomy with an area of gliosis in the right frontal lobe likely related to prior surgery. FLAIR hyperintensities in the occipital lobes may be related to small vessel ischemic changes or prior infection. The marrow signal in the calvarium is normal. The orbits are normal. Paranasal sinuses are normal. Mastoid air cells are clear. No soft tissue abnormality is seen. IMPRESSION: 1. Postsurgical changes of right craniotomy and abscess drainage with no acute intracranial abnormality. Dictated by: Dictated on workstation # [id number]
== END 2020-08-18 19:00 | disposition home or self-care (01) ==
LOC: EDUNIT# 09:41 → ER FS 09:43 → 4TH 12:32
PROVIDERS: ADMIT Internal Medicine; ATTEND Internal Medicine
DX: R53.1 Weakness (principal); I10 Essential (primary) hypertension; E78.5 Hyperlipidemia, unspecified; J44.9 Chronic obstructive pulmonary disease, unspecified; I48.0 Paroxysmal atrial fibrillation; M19.90 Unspecified osteoarthritis, unspecified site; G43.909 Migraine, unspecified, not intractable, without status migrainosus; F41.9 Anxiety disorder, unspecified; F17.210 Nicotine dependence, cigarettes, uncomplicated; Z79.51 Long term (current) use of inhaled steroids; Z79.01 Long term (current) use of anticoagulants; Z80.3 Family history of malignant neoplasm of breast
CPT/HCPCS: 36415; 70450; 70553; 71045; 80053 ×2; 80306; 82962; 83880; 84484; 85025 ×2; 85610; 85730; 93005; 94760; 99283; G0480; 80320; G0378

== ENCOUNTER 2020-12-07 23:48 | Emergency (ER) | payer MEDICARE ==
[~2020-12-07] VITALS: Ht 157.5 cm; Wt 63.5 kg
[2020-12-08 00:06] VITALS: BP 127/68
--- NOTE | 2020-12-08 00:10 | ED GI ---
General Stated Complaint: NAUSEA/VOMITING History of Present Illness Date Seen by Provider: Dec 08, 2020 Time Seen by Provider: 00:06 Initial Comments 65-year-old female presents with nausea and vomiting for 3 days. Patient reports that she cannot "keep anything down". She got some tenderness throughout her stomach from vomiting. She reports cough. She does report that she is received her flu vaccination for coronavirus. She denies any fevers or chills. Patient reports a normal bowel movement yesterday, denies any diarrhea. Denies any shortness of breath, chest pain or urinary symptoms Allergies and Home Medications Allergies Coded Allergies: No Known Drug Allergies (Unverified , 08/17/20) Home Medications ALPRAZolam 0.25 Mg Tablet, 0.25 MG PO BID PRN for ANXIETY, (Reported) Acetaminophen/Diphenhydramine 1 Each Tablet, 2 EACH PO HS PRN for SLEEP, (Reported) Albuterol Sulfate 18 Gm Hfa.aer.ad, 2 PUFF IN Q6H PRN for SHORTNESS OF BREATH, (Reported) Amiodarone HCl 200 Mg Tablet, 200 MG PO UD take 2 tabs twice daily for 2 weeks then take one tab twice daily Prescribed by: BERNARD ONEILL on 08/04/19950 Apixaban 5 Mg Tablet, 5 MG PO BID Prescribed by: BERNARD ONEILL on 08/04/1951 Buprenorphine HCl 900 Mcg Film, 900 MCG MM BID, (Reported) Calcium Carbonate/Vitamin D3 1 Each Tablet, 1 EACH PO DAILY, (Reported) Cariprazine Hydrochloride 1.5 Mg Capsule, 1.5 MG PO HS, (Reported) Fish Oil/Dha/Epa 1 Each Capsule, 1 EACH PO DAILY, (Reported) Ipratropium/Albuterol Sulfate 3 Ml Ampul.neb, 3 ML PO Q4 -6H PRN for SHORTNESS OF BREATH, (Reported) Lovastatin 20 Mg Tablet, 20 MG PO HS, (Reported) Multivitamin 1 Each Tablet, 1 EACH PO DAILY, (Reported) Oxycodone HCl 20 Mg Tablet, 20 MG PO TID PRN for PAIN-SEVERE (8-10), (Reported) Pramipexole Di-HCl 0.5 Mg Tablet, 0.5 MG PO HS, (Reported) Pramipexole Di-HCl 1 Mg Tablet, 1 MG PO DAILY, (Reported) Umeclidinium Brm/Vilanterol Tr 1 Each Blst.w.dev, 1 PUFF IN DAILY PRN for SHORTNESS OF BREATH, (Reported) Patient Home Medication List Home Medication List Reviewed: Yes Review of Systems Review of Systems Constitutional: No chills, No fever; malaise EENTM: No Symptoms Reported Respiratory: Cough (Chronic); Denies Shortness of Air Cardiovascular: Denies Chest Pain, Denies Lightheadedness Gastrointestinal: Abdominal Pain; Denies Constipated, Denies Diarrhea; Nausea, Vomiting Genitourinary: No Symptoms Reported Musculoskeletal: no symptoms reported Skin: other (Multiple old skin tears) Psychiatric/Neurological: No Symptoms Reported Endocrine: No Symptoms Reported Past Huwuhrk-Mslkic-Lsoxhi Hx Immunizations Up To Date Tetanus Booster (TDap): More than 5yrs Seasonal Allergies Seasonal Allergies: No Past Medical History Surgeries: Yes (Brain "PUS POCKETS ON BRAIN") Neurological, Orthopedic Respiratory: Yes Asthma, Pneumonia, COPD Cardiac: Yes (WAS TOLD SHE HAD A HEART MURMUR ONE TIME SEVERAL YRS AGO, ) Atrial Fibrillation 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) Reproductive Disorders: No Genitourinary: No Gastrointestinal: No Musculoskeletal: Yes Arthritis, Spasms Endocrine: No Cancer: No Psychosocial: No Integumentary: No Blood Disorders: No Family Medical History Cancer 09 SISTER (BREAST) Family history: Arthritis 03 FATHER 03 MOTHER Family history: Cardiovascular disease 03 FATHER 03 MOTHER Family history: Hypertension 03 MOTHER Heart disease 03 MOTHER History of - respiratory disease 03 FATHER 03 MOTHER 09 BROTHER 09 SISTER Myocardial infarction 03 FATHER 03 MOTHER No Family History of: Abdominal aortic aneurysm Alcoholism Congestive heart failure Dementia Family history: Allergy Family history: Alzheimer's disease Family history: Asthma Family history: Diabetes mellitus Family history: Glaucoma Family history: Thyroid disorder Hereditary disease History of - anemia Kidney disease Parkinson's disease Prostate cancer Psychotic disorder Seizure disorder Stroke Physical Exam Vital Signs Vital Signs - First Documented 12/08/20 00:06 Temp 36.7 Pulse 79 Resp 16 B/P (MAP) 127/68 (87) Pulse Ox 96 O2 Delivery Nasal Cannula O2 Flow Rate 2.00 Capillary Refill : Height/Weight/BMI Height: 5'3.00" Weight: 100lbs. 0oz. 45.331137dl; 23.00 BMI Method:Stated General Appearance: thin, other (Chronically ill) Neck: full range of motion Respiratory: lungs clear, decreased breath sounds (Mild diffuse) Cardiovascular: normal peripheral pulses, regular rate, rhythm Gastrointestinal: soft; No distended, No guarding, No rebound; tenderness (Mild diffuse) Extremities: normal range of motion Neurologic/Psychiatric: no motor/sensory deficits, alert, normal mood/affect Skin: other (Multiple skin tears/bruising on left arm that is old) Progress/Results/Core Measures Results/Orders Lab Results Laboratory Tests Test 12/08/20 00:10 12/08/20 00:12 Range/Units White Blood Count 14.9 H 4.3-11.0 10^3/uL Red Blood Count 4.87 4.35-5.85 10^6/uL Hemoglobin 15.1 11.5-16.0 G/DL Hematocrit 45 35-52 % Mean Corpuscular Volume 93 80-99 FL Mean Corpuscular Hemoglobin 31 25-34 PG Mean Corpuscular Hemoglobin Concent 33 32-36 G/DL Red Cell Distribution Width 12.9 10.0-14.5 % Platelet Count 434 H 130-400 10^3/uL Mean Platelet Volume 9.2 7.4-10.4 FL Immature Granulocyte % (Auto) 0 % Neutrophils (%) (Auto) 80 H 42-75 % Lymphocytes (%) (Auto) 5 L 12-44 % Monocytes (%) (Auto) 14 H 0-12 % Eosinophils (%) (Auto) 0 0-10 % Basophils (%) (Auto) 0 0-10 % Neutrophils # (Auto) 11.9 H 1.8-7.8 X 10^3 Lymphocytes # (Auto) 0.8 L 1.0-4.0 X 10^3 Monocytes # (Auto) 2.1 H 0.0-1.0 X 10^3 Eosinophils # (Auto) 0.0 0.0-0.3 10^3/uL Basophils # (Auto) 0.0 0.0-0.1 10^3/uL Immature Granulocyte # (Auto) 0.0 0.0-0.1 10^3/uL Neutrophils % (Manual) 66 % Lymphocytes % (Manual) 5 % Monocytes % (Manual) 14 % Metamyelocytes % 1 % Band Neutrophils 10 % Atypical Lymphocytes 4 % Platelet Estimate INCREASED Blood Morphology Comment NORMAL Sodium Level 133 L 135-145 MMOL/L Potassium Level 4.9 3.6-5.0 MMOL/L Chloride Level 91 L 98-107 MMOL/L Carbon Dioxide Level 28 21-32 MMOL/L Anion Gap 14 5-14 MMOL/L Blood Urea Nitrogen 43 H 7-18 MG/DL Creatinine 1.45 H 0.60-1.30 MG/DL Estimat Glomerular Filtration Rate 36 BUN/Creatinine Ratio 30 Glucose Level 146 H 70-105 MG/DL Calcium Level 9.6 8.5-10.1 MG/DL Corrected Calcium 9.2 8.5-10.1 MG/DL Total Bilirubin 0.7 0.1-1.0 MG/DL Aspartate Amino Transf (AST/SGOT) 84 H 5-34 U/L Alanine Aminotransferase (ALT/SGPT) 96 H 0-55 U/L Alkaline Phosphatase 99 40-136 U/L Total Protein 7.8 6.4-8.2 GM/DL Albumin 4.5 3.2-4.5 GM/DL Lipase 12 8-78 U/L My Orders Orders - LEON,KEN L DO Cbc With Automated Diff (12/08/20 00:11) Comprehensive Metabolic Panel (12/08/20 00:11) Lipase (12/08/20 00:11) Ua Culture If Indicated (12/08/20 00:11) Acute Abd Series (12/08/20 00:11) Covid 19 Inhouse Test (12/08/20 00:11) Influenza A And B By Pcr (12/08/20 00:11) Ondansetron Injection (Zofran Injectio (12/08/20 00:30) Lactated Ringers (Lr 1000 Ml Iv Solution (12/08/20 00:16) Famotidine Injection (Pepcid Injection) (12/08/20 00:16) Manual Differential (12/08/20 00:12) Ct Abdomen/Pelvis Wo (12/08/20 01:07) Medications Given in ED Current Medications Medications Dose Ordered Sig/Inder Route Start Time Stop Time Status Last Admin Dose Admin Ondansetron HCl 4 mg ONCE ONCE IVP 12/08/20 00:30 12/08/20 00:31 DC 12/08/20 00:35 4 MG Vital Signs/I&O 12/08/20 00:06 Temp 36.7 Pulse 79 Resp 16 B/P (MAP) 127/68 (87) Pulse Ox 96 O2 Delivery Nasal Cannula O2 Flow Rate 2.00 Progress Progress Note : Progress Note Patient had a concerning x-ray. Went and discussed with her her lab findings and x-ray findings. I discussed with her that is going to a CAT scan to further evaluate her abdominal pain. When x-ray tech went into it patient for the CAT scan. Patient states "I think I am just going to leave" patient went to the restroom, came out her IV out and then left AMA. Patient did not provide a reason why she was leaving AMA. Patient did not have any episodes of vomiting while here in the ER. Departure Impression Primary Impression: Abdominal pain Qualified Codes: R10.84 - Generalized abdominal pain Additional Impression: Nausea and vomiting Qualified Codes: R11.2 - Nausea with vomiting, unspecified Disposition: 07 AGAINST MEDICAL ADVICE Condition: Stable Departure-Patient Inst. Referrals: MATTHEW SON DO (PCP/Family) Primary Care Physician KEN LEON DO Dec 08, 2020 00:10
[2020-12-08] MEDS ORDERED: LACTATED RINGERS 1,000 ML IV STA (00:16)
[2020-12-08] MEDS ORDERED: FAMOTIDINE 20MG/2ML IV (PEPCID) IV STA (00:16)
[2020-12-08] MEDS ORDERED: ONDANSETRON 4 MG/2 ML (SDV) Z0FRAN IVP ONE (00:30)
[2020-12-08 00:46] LABS: BASOPHILS % (AUTO) 0 % (0-10); EOSINOPHILS % (AUTO) 0 % (0-10); HEMATOCRIT 45 % (35-52); HEMOGLOBIN 15.1 G/DL (11.5-16.0); LYMPHOCYTES % (AUTO) 5 % (12-44); MEAN CORPUSCULAR HEMOGLOBIN 31 PG (25-34); MEAN CORPUSCULAR HGB CONC 33 G/DL (32-36); MEAN CORPUSCULAR VOLUME 93 FL (80-99); MEAN PLATELET VOLUME 9.2 FL (7.4-10.4); MONOCYTES % (AUTO) 14 % (0-12); NEUTROPHILS % (AUTO) 80 % (42-75); PLATELET COUNT 434 10^3/uL (130-400); WHITE BLOOD COUNT 14.9 10^3/uL (4.3-11.0)
[2020-12-08 00:47] LABS: LYMPHOCYTES # (AUTO) 0.8 X 10^3 (1.0-4.0); MONOCYTES # (AUTO) 2.1 X 10^3 (0.0-1.0); NEUTROPHILS # (AUTO) 11.9 X 10^3 (1.8-7.8)
[2020-12-08 00:49] LABS: CALCIUM 9.6 MG/DL (8.5-10.1); CREATININE SERUM 1.45 MG/DL (0.60-1.30); POTASSIUM 4.9 MMOL/L (3.6-5.0)
[2020-12-08 00:50] LABS: ALBUMIN 4.5 GM/DL (3.2-4.5); BILIRUBIN,TOTAL 0.7 MG/DL (0.1-1.0); TOTAL PROTEIN 7.8 GM/DL (6.4-8.2)
[2020-12-08 01:17] LABS: NEUTROPHILS % (MANUAL) 66 %
[2020-12-08 01:18] LABS: ATYPICAL LYMPHOCYTES 4 %; BAND NEUTROPHILS 10 %; LYMPHOCYTES % (MANUAL) 5 %; METAMYELOCYTES % 1 %; MONOCYTES % (MANUAL) 14 %; PLATELET ESTIMATE INCREASED; RBC MORPH NORMAL
[2020-12-08 01:59] LABS: GLUCOSE, URINE (UA) NEGATIVE (NEGATIVE); KETONES,URINE 1+ (NEGATIVE); LEUKOCYTE ESTERASE ,URINE TRACE (NEGATIVE); NITRITE,URINE NEGATIVE (NEGATIVE); PH,URINE 5.5 (5-9); PROTEIN,URINE NEGATIVE (NEGATIVE)
[2020-12-08 02:01] LABS: COLOR,URINE DARK YELLOW
[2020-12-08 02:10] LABS: CLARITY,URINE CLOUDY
[2020-12-08 02:11] LABS: BACTERIA,URINE TRACE /HPF; BILIRUBIN,URINE 1+ (NEGATIVE); CALCIUM OXALATE CRYSTALS,UR LARGE /LPF; RBC,URINE 0-2 /HPF
--- NOTE | 2020-12-08 05:48 | Diagnostic Imaging Report ---
Clinical indication: Patient with nausea and vomiting x2 days. Patient has history of atrial fibrillation. EXAMS: X-ray of the chest PA view and x-ray of the abdomen supine and upright views. COMPARISONS: None. FINDINGS: LUNGS/ PLEURA: Lungs are clear. There is no pneumothorax. There is no pleural effusion. MEDIASTINUM: Unremarkable. PULMONARY VASCULATURE: Unremarkable. HEART: Unremarkable. BONES/ EXTRATHORACIC SOFT TISSUE: There are hypertrophic spurs involving the thoracic spine. Anterior cervical disk fusion involving the cervicothoracic region is noted. There are degenerative spurs involving the lumbar spine. ABDOMEN AND PELVIS: There are multiple loops of dilated air-filled small bowel overlying the mid and left upper abdominal region measures up to 3.3 cm. There are multiple air-fluid levels. There is moderate to large amounts of stool in the right colon and small to moderate amount of left colon. There is no significant air in the visualized portions of the colon seen. There is no intra-abdominal free air. There are no focal calcifications overlying the expected regions/ pathways of both kidneys, ureters, and bladder regions. Suspected phleboliths seen overlying the pelvis. IMPRESSION: 1: There are multiple dilated loops of small bowel overlying the mid and left upper abdominal region with air fluid levels. There is no significant air in the colon. These findings are concerning for small bowel obstruction. CT scan of abdomen and pelvis would better evaluate. 2: There is no radiographic evidence of acute cardiopulmonary process. Dictated by: Dictated on workstation # [id number]
[2020-12-08] MEDS ORDERED: BUDE10.7 INH (16:53)
[2020-12-08] MEDS ORDERED: MULT-1136 PO (16:53)
[2020-12-08] MEDS ORDERED: OXYC10TA7 PO (16:53)
[2020-12-08] MEDS ORDERED: MONT10TA32 PO (16:53)
[2020-12-08] MEDS ORDERED: CLOP75TA28 PO (16:53)
[2020-12-08] MEDS ORDERED: AMT10T PO (16:53)
[2020-12-08] MEDS ORDERED: AMIO200T6 PO (16:53)
[2020-12-08] MEDS ORDERED: APIX5TAB PO (16:53)
== END 2020-12-08 01:26 | disposition left against medical advice (07) ==
LOC: EDUNIT# 23:48 → ER FS 23:51
DX: R10.84 Generalized abdominal pain (principal); R11.2 Nausea with vomiting, unspecified; J44.9 Chronic obstructive pulmonary disease, unspecified; I48.91 Unspecified atrial fibrillation; Z20.822 Contact with and (suspected) exposure to COVID-19; Z79.01 Long term (current) use of anticoagulants; Z79.899 Other long term (current) drug therapy
CPT/HCPCS: 36415; 74022; 80053; 81000; 83690; 85007; 85027; 87636; 87804; 99282

== ENCOUNTER 2020-12-08 07:32 | Inpatient (IN) | payer MEDICARE ==
[~2020-12-08] VITALS: Ht 62 cm; Wt 53.5 kg
[2020-12-08] MEDS ORDERED: NS IV 1000 ML 1,000 ML IV SCH ×2 (07:45→08:15)
--- NOTE | 2020-12-08 08:02 | ED GI ---
General Stated Complaint: ABD PAIN; VOMITING Source of Information: Patient Exam Limitations: No Limitations History of Present Illness Date Seen by Provider: Dec 08, 2020 Time Seen by Provider: 07:59 Initial Comments 5-year-old female presents with abdominal pain, nausea and vomiting intermittent for the past 3 days. Patient seen in this ER last night for the same and left prior to receiving her CT scanning AGAINST MEDICAL ADVICE.... Discussed with previous physician who suspected she may have a bowel obstruction that she would likely return. Patient denies fever or chills. Denies similar symptoms in the past. Denies having any abdominal surgeries in the past. PMHX signif for COPD and A.fib Allergies and Home Medications Allergies Coded Allergies: No Known Drug Allergies (Unverified , 08/17/20) Home Medications ALPRAZolam 0.25 Mg Tablet, 0.25 MG PO BID PRN for ANXIETY, (Reported) Acetaminophen/Diphenhydramine 1 Each Tablet, 2 EACH PO HS PRN for SLEEP, (Reported) Albuterol Sulfate 18 Gm Hfa.aer.ad, 2 PUFF IN Q6H PRN for SHORTNESS OF BREATH, (Reported) Amiodarone HCl 200 Mg Tablet, 200 MG PO UD take 2 tabs twice daily for 2 weeks then take one tab twice daily Prescribed by: BERNARD ONEILL on 08/04/19950 Apixaban 5 Mg Tablet, 5 MG PO BID Prescribed by: BERNARD ONEILL on 08/04/19950 Buprenorphine HCl 900 Mcg Film, 900 MCG MM BID, (Reported) Calcium Carbonate/Vitamin D3 1 Each Tablet, 1 EACH PO DAILY, (Reported) Cariprazine Hydrochloride 1.5 Mg Capsule, 1.5 MG PO HS, (Reported) Fish Oil/Dha/Epa 1 Each Capsule, 1 EACH PO DAILY, (Reported) Ipratropium/Albuterol Sulfate 3 Ml Ampul.neb, 3 ML PO Q4 -6H PRN for SHORTNESS OF BREATH, (Reported) Lovastatin 20 Mg Tablet, 20 MG PO HS, (Reported) Multivitamin 1 Each Tablet, 1 EACH PO DAILY, (Reported) Oxycodone HCl 20 Mg Tablet, 20 MG PO TID PRN for PAIN-SEVERE (8-10), (Reported) Pramipexole Di-HCl 0.5 Mg Tablet, 0.5 MG PO HS, (Reported) Pramipexole Di-HCl 1 Mg Tablet, 1 MG PO DAILY, (Reported) Umeclidinium Brm/Vilanterol Tr 1 Each Blst.w.dev, 1 PUFF IN DAILY PRN for SHORTNESS OF BREATH, (Reported) Patient Home Medication List Home Medication List Reviewed: Yes Review of Systems Review of Systems Constitutional: No chills, No fever; malaise Respiratory: Denies Cough, Denies Shortness of Air Cardiovascular: Denies Chest Pain, Denies Edema, Denies Lightheadedness Gastrointestinal: Abdomen Distended, Abdominal Pain, Constipated; Denies Diarrhea; Nausea, Vomiting Genitourinary: Denies Burning, Denies Frequency, Denies Flank Pain, Denies Hematuria Musculoskeletal: No back pain, No joint pain Skin: No change in color, No rash Past Niblljt-Euozdc-Zbvdio Hx Patient Social History Tobacco Use?: Yes Immunizations Up To Date Tetanus Booster (TDap): More than 5yrs Seasonal Allergies Seasonal Allergies: No Past Medical History Surgeries: Yes (Brain "PUS POCKETS ON BRAIN") Neurological, Orthopedic Respiratory: Yes Asthma, Pneumonia, COPD Cardiac: Yes (WAS TOLD SHE HAD A HEART MURMUR ONE TIME SEVERAL YRS AGO, ) Atrial Fibrillation 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) Reproductive Disorders: No Genitourinary: No Gastrointestinal: No Musculoskeletal: Yes Arthritis, Spasms Endocrine: No Cancer: No Psychosocial: No Integumentary: No Blood Disorders: No Family Medical History Cancer 09 SISTER (BREAST) Family history: Arthritis 03 FATHER 03 MOTHER Family history: Cardiovascular disease 03 FATHER 03 MOTHER Family history: Hypertension 03 MOTHER Heart disease 03 MOTHER History of - respiratory disease 03 FATHER 03 MOTHER 09 BROTHER 09 SISTER Myocardial infarction 03 FATHER 03 MOTHER No Family History of: Abdominal aortic aneurysm Alcoholism Congestive heart failure Dementia Family history: Allergy Family history: Alzheimer's disease Family history: Asthma Family history: Diabetes mellitus Family history: Glaucoma Family history: Thyroid disorder Hereditary disease History of - anemia Kidney disease Parkinson's disease Prostate cancer Psychotic disorder Seizure disorder Stroke Physical Exam Vital Signs Vital Signs - First Documented 12/08/20 12/08/20 07:33 11:02 Temp 36.0 Pulse 78 Resp 18 B/P (MAP) 141/60 (87) Pulse Ox 91 O2 Delivery Room Air O2 Flow Rate 1.00 Capillary Refill : Height/Weight/BMI Height: 5'3.00" Weight: 100lbs. 0oz. [id number]; 25.00 BMI Method:Stated General Appearance: WD/WN, no apparent distress Respiratory: chest non-tender, lungs clear, normal breath sounds, no respir atory distress, no accessory muscle use Cardiovascular: no edema, no JVD Gastrointestinal: distended, guarding; No rebound; tenderness Back: normal inspection, no CVA tenderness, no vertebral tenderness Neurologic/Psychiatric: no motor/sensory deficits, alert, normal mood/affect Skin: normal color, warm/dry Focused Exam Lactate Level 12/08/20 07:53: Lactic Acid Level 1.15 Lactic Acid Level Laboratory Tests Test 12/08/20 07:53 Lactic Acid Level 1.15 MMOL/L (0.50-2.00) Progress/Results/Core Measures Results/Orders Lab Results Laboratory Tests Test 12/08/20 07:53 Range/Units White Blood Count 8.8 4.3-11.0 10^3/uL Red Blood Count 4.62 4.35-5.85 10^6/uL Hemoglobin 14.3 11.5-16.0 G/DL Hematocrit 43 35-52 % Mean Corpuscular Volume 92 80-99 FL Mean Corpuscular Hemoglobin 31 25-34 PG Mean Corpuscular Hemoglobin Concent 34 32-36 G/DL Red Cell Distribution Width 12.9 10.0-14.5 % Platelet Count 354 130-400 10^3/uL Mean Platelet Volume 9.1 7.4-10.4 FL Immature Granulocyte % (Auto) 0 % Neutrophils (%) (Auto) 73 42-75 % Lymphocytes (%) (Auto) 7 L 12-44 % Monocytes (%) (Auto) 20 H 0-12 % Eosinophils (%) (Auto) 0 0-10 % Basophils (%) (Auto) 1 0-10 % Neutrophils # (Auto) 6.4 1.8-7.8 X 10^3 Lymphocytes # (Auto) 0.6 L 1.0-4.0 X 10^3 Monocytes # (Auto) 1.8 H 0.0-1.0 X 10^3 Eosinophils # (Auto) 0.0 0.0-0.3 10^3/uL Basophils # (Auto) 0.0 0.0-0.1 10^3/uL Immature Granulocyte # (Auto) 0.0 0.0-0.1 10^3/uL Neutrophils % (Manual) 56 % Lymphocytes % (Manual) 7 % Monocytes % (Manual) 28 % Eosinophils % (Manual) 0 % Basophils % (Manual) 0 % Band Neutrophils 9 % Sodium Level 132 L 135-145 MMOL/L Potassium Level 4.4 3.6-5.0 MMOL/L Chloride Level 91 L 98-107 MMOL/L Carbon Dioxide Level 28 21-32 MMOL/L Anion Gap 13 5-14 MMOL/L Blood Urea Nitrogen 45 H 7-18 MG/DL Creatinine 1.05 0.60-1.30 MG/DL Estimat Glomerular Filtration Rate 52 BUN/Creatinine Ratio 43 Glucose Level 139 H 70-105 MG/DL Lactic Acid Level 1.15 0.50-2.00 MMOL/L Calcium Level 9.2 8.5-10.1 MG/DL Corrected Calcium 9.3 8.5-10.1 MG/DL Total Bilirubin 0.6 0.1-1.0 MG/DL Aspartate Amino Transf (AST/SGOT) 160 H 5-34 U/L Alanine Aminotransferase (ALT/SGPT) 164 H 0-55 U/L Alkaline Phosphatase 86 40-136 U/L Total Protein 7.0 6.4-8.2 GM/DL Albumin 3.9 3.2-4.5 GM/DL Lipase 9 8-78 U/L My Orders Orders - NIC MOSLEY DO Ed Iv/Invasive Line Start (12/08/20 07:42) Cbc With Automated Diff (12/08/20 07:42) Comprehensive Metabolic Panel (12/08/20 07:42) Lipase (12/08/20 07:42) Lactic Acid Analyzer (12/08/20 07:42) Ct Abdomen/Pelvis W (12/08/20 07:42) Ns Iv 1000 Ml (Sodium Chloride 0.9%) (12/08/20 07:45) Ns Iv 1000 Ml (Sodium Chloride 0.9%) (12/08/20 08:15) Fentanyl Inj (Sublimaze Injection) (12/08/20 08:15) Ondansetron Injection (Zofran Injectio (12/08/20 08:15) Manual Differential (12/08/20 07:53) Iohexol Injection (Omnipaque 350 Mg/Ml 1 (12/08/20 09:00) Received Contrast (Hold Metformin- Contr (12/08/20 09:00) Sodium Chloride Flush (Catheter Flush Sy (12/08/20 09:00) Ns (Ivpb) (Sodium Chloride 0.9% Ivpb Bag (12/08/20 09:00) Fentanyl Inj (Sublimaze Injection) (12/08/20 11:30) Medications Given in ED Current Medications Medications Dose Ordered Sig/Inder Route Start Time Stop Time Status Last Admin Dose Admin Fentanyl Citrate 50 mcg ONCE ONCE IVP 12/08/20 08:15 12/08/20 08:16 DC 12/08/20 08:09 50 MCG Iohexol 100 ml ONCE ONCE IV 12/08/20 09:00 12/08/20 09:03 DC 12/08/20 09:28 100 ML Ondansetron HCl 4 mg ONCE ONCE IVP 12/08/20 08:15 12/08/20 08:16 DC 12/08/20 08:08 4 MG Sodium Chloride 10 ml NEEDED PRN IV 12/08/20 09:00 12/08/20 09:28 10 ML Sodium Chloride 100 ml ONCE ONCE IV 12/08/20 09:00 12/08/20 09:03 DC 12/08/20 09:28 80 ML Vital Signs/I&O 12/08/20 12/08/20 07:33 11:02 Temp 36.0 36.0 Pulse 78 85 Resp 18 18 B/P (MAP) 141/60 (87) 146/71 (87) Pulse Ox 91 95 O2 Delivery Room Air Nasal Cannula O2 Flow Rate 1.00 Progress Progress Note : Progress Note patient stable and cooperative during ER stay with normal VS and no episodes of vomiting. Pain managed w repeat doses of Fentanyl. Tolerated well and left for transfer to [facility] without incident. Diagnostic Imaging Diagonstic Imaging: CT Comments IMPRESSION: 1. Findings consistent with a high degree small bowel obstruction with transition likely in the mid to lower abdomen/pelvis. 2. Moderate colonic stool retention. Dictated on workstation # [id number] Dict: 12/08/20934 Trans: 12/08/20946 [id number] Interpreted by: JANY QUILES DO Electronically signed by: Departure Communication (Admissions) Time/Spoke to Admitting Phy: 10:[address] Guerrier who accepts for admission w plans to consult Dr Lehman on arrival Time/Spoke to Consulting Phy: 09:[address] Lehman who will see pt in surgical consultation Impression Primary Impression: Abdominal pain Qualified Codes: R10.9 - Unspecified abdominal pain Additional Impressions: Small bowel obstruction Nausea and vomiting Qualified Codes: R11.2 - Nausea with vomiting, unspecified Disposition: 30 STILL A PATIENT Condition: Improved Admissions Decision to Admit Reason: Admit from ER (General) Decision to Admit/Date: Dec 08, 2020 Time/Decision to Admit Time: 08:00 Departure-Patient Inst. Referrals: MATTHEW SON DO (PCP/Family) Primary Care Physician NIC MOSLEY DO Dec 08, 2020 08:02
[2020-12-08 08:09] LABS: BASOPHILS % (AUTO) 1 % (0-10); EOSINOPHILS % (AUTO) 0 % (0-10); HEMATOCRIT 43 % (35-52); HEMOGLOBIN 14.3 G/DL (11.5-16.0); LYMPHOCYTES % (AUTO) 7 % (12-44); MEAN CORPUSCULAR HEMOGLOBIN 31 PG (25-34); MEAN CORPUSCULAR HGB CONC 34 G/DL (32-36); MEAN CORPUSCULAR VOLUME 92 FL (80-99); MEAN PLATELET VOLUME 9.1 FL (7.4-10.4); MONOCYTES % (AUTO) 20 % (0-12); NEUTROPHILS % (AUTO) 73 % (42-75); PLATELET COUNT 354 10^3/uL (130-400); WHITE BLOOD COUNT 8.8 10^3/uL (4.3-11.0)
[2020-12-08 08:10] LABS: LYMPHOCYTES # (AUTO) 0.6 X 10^3 (1.0-4.0); MONOCYTES # (AUTO) 1.8 X 10^3 (0.0-1.0); NEUTROPHILS # (AUTO) 6.4 X 10^3 (1.8-7.8)
[2020-12-08] MEDS ORDERED: fentaNYL INJ 100 MCG/2 ML AMP IVP ONE ×2 (08:15→11:30)
[2020-12-08] MEDS ORDERED: ONDANSETRON 4 MG/2 ML (SDV) Z0FRAN IVP ONE (08:15)
[2020-12-08 08:28] LABS: BILIRUBIN,TOTAL 0.6 MG/DL (0.1-1.0); CALCIUM 9.2 MG/DL (8.5-10.1); CREATININE SERUM 1.05 MG/DL (0.60-1.30); POTASSIUM 4.4 MMOL/L (3.6-5.0)
[2020-12-08 08:29] LABS: ALBUMIN 3.9 GM/DL (3.2-4.5)
[2020-12-08 08:30] LABS: BAND NEUTROPHILS 9 %; BASOPHILS % (MANUAL) 0 %; EOSINOPHILS % (MANUAL) 0 %; LYMPHOCYTES % (MANUAL) 7 %; MONOCYTES % (MANUAL) 28 %; NEUTROPHILS % (MANUAL) 56 %
[2020-12-08] MEDS ORDERED: NS 100 ML (IVPB) BAG IV ONE (09:00)
[2020-12-08] MEDS ORDERED: IOHEXOL 350 MG/ML 100 ML (OMNIPAQUE 350) VIAL IV ONE (09:00)
[2020-12-08] MEDS ORDERED: HOLD METFORMIN - RECEIVED CONTRAST 20 ML VIAL IV SCH (09:00)
[2020-12-08] MEDS ORDERED: CATHETER FLUSH 10 ML SYR IV PRN (09:00)
--- NOTE | 2020-12-08 09:47 | Diagnostic Imaging Report ---
PROCEDURE: CT abdomen and pelvis with contrast. TECHNIQUE: Multiple contiguous axial images were obtained through the abdomen and pelvis after administration of intravenous contrast. Auto Exposure Controls were utilized during the CT exam to meet ALARA standards for radiation dose reduction. All CT scans use one or more of the following dose optimizing techniques: automated exposure control, MA and/or KvP adjustment based on patient size and exam type or iterative reconstruction. INDICATION: Abdominal pain. CORRELATION STUDY: Acute abdominal series radiographs of 12/08/2020. FINDINGS: LOWER THORAX: Clear. LIVER: Very mild central intrahepatic and bile duct prominence. No definitive focal hepatic lesion. GALLBLADDER: Somewhat contracted. No significant extrahepatic bile duct dilatation. SPLEEN: Unremarkable. PANCREAS: Mildly atrophic. ADRENAL GLANDS: Unremarkable. KIDNEYS: Mildly prominent extrarenal pelves. No overt hydronephrosis. Otherwise, normal enhancement. ABDOMINAL AORTA: Scattered areas of wall calcification. Nonaneurysmal. Major branches are patent at their origins. Portal vein is patent. GASTROINTESTINAL TRACT: Stomach is rather significantly distended with fluid and some gas. There is a significant amount of fluid and gas distention of small bowel up to some areas of greater than 4 cm. There is asymmetric caliber change in the low pelvis with some areas of asymmetric small bowel thickening and enhancement. Calcification in the left hemipelvis appears to be just outside the lumen of the gastrointestinal tract. There is moderate stool and some gas within the colon. Appendix is not definitively identified. Small amount of pelvic fluid. No portal venous gas or free intraperitoneal air. URINARY BLADDER: Unremarkable. REPRODUCTIVE: Uterus and adnexa appear generally unremarkable but are limited in assessment. OSSEOUS STRUCTURES: No acute abnormality. OTHER: None. IMPRESSION: 1. Findings consistent with a high degree small bowel obstruction with transition likely in the mid to lower abdomen/pelvis. 2. Moderate colonic stool retention. Dictated by: Dictated on workstation # [id number]
[2020-12-08 12:31] VITALS: BP 126/75
[2020-12-08] MEDS ORDERED: ONDANSETRON 4 MG/2 ML (SDV) Z0FRAN IV PRN (13:00)
--- NOTE | 2020-12-08 13:29 | Consultation - Surgery ---
STORMYDANY 12/08/20 1329: History of Present Illness History of Present Illness Patient Consulted On(margi/time) 12/08/20 13:21 Date Seen by Provider: Dec 08, 2020 Time Seen by Provider: 13:02 History of Present Illness HPI from ED - 65-year-old female presents with abdominal pain, nausea and vomiting intermittent for the past 3 days. Patient seen in this ER last night for the same and left prior to receiving her CT scanning AGAINST MEDICAL ADVICE.... Discussed with previous physician who suspected she may have a bowel obstruction that she would likely return. Patient denies fever or chills. Denies similar symptoms in the past. Denies having any abdominal surgeries in the past. When I visited the pt she was sitting up in bed with mild discomfort. She describes pain 7/10, pointing to her abdomen and says it feels like a pain similar to over-eating. Laying flat and stretching out flat makes the pain better, while sitting up makes it worse. These symptoms have persisted for 2-3days, pain is now controlled with medication. She also notes vomiting which smells and tastes like bile. Denies blood in vomit and does not typically see blood in her stools - last BM "about a week ago." She also states that she takes Oxycodone 20mg daily for her RLS for 1-2yrs. Allergies and Home Medications Allergies Coded Allergies: No Known Drug Allergies (Unverified , 08/17/20) Home Medications ALPRAZolam 0.25 Mg Tablet, 0.25 MG PO BID PRN for ANXIETY, (Reported) Acetaminophen/Diphenhydramine 1 Each Tablet, 2 EACH PO HS PRN for SLEEP, (Reported) Albuterol Sulfate 18 Gm Hfa.aer.ad, 2 PUFF IN Q6H PRN for SHORTNESS OF BREATH, (Reported) Amiodarone HCl 200 Mg Tablet, 200 MG PO UD take 2 tabs twice daily for 2 weeks then take one tab twice daily Prescribed by: BERNARD ONEILL on 08/04/19950 Apixaban 5 Mg Tablet, 5 MG PO BID Prescribed by: BERNARD ONEILL on 08/04/19950 Buprenorphine HCl 900 Mcg Film, 900 MCG MM BID, (Reported) Calcium Carbonate/Vitamin D3 1 Each Tablet, 1 EACH PO DAILY, (Reported) Cariprazine Hydrochloride 1.5 Mg Capsule, 1.5 MG PO HS, (Reported) Fish Oil/Dha/Epa 1 Each Capsule, 1 EACH PO DAILY, (Reported) Ipratropium/Albuterol Sulfate 3 Ml Ampul.neb, 3 ML PO Q4 -6H PRN for SHORTNESS OF BREATH, (Reported) Lovastatin 20 Mg Tablet, 20 MG PO HS, (Reported) Multivitamin 1 Each Tablet, 1 EACH PO DAILY, (Reported) Oxycodone HCl 20 Mg Tablet, 20 MG PO TID PRN for PAIN-SEVERE (8-10), (Reported) Pramipexole Di-HCl 0.5 Mg Tablet, 0.5 MG PO HS, (Reported) Pramipexole Di-HCl 1 Mg Tablet, 1 MG PO DAILY, (Reported) Umeclidinium Brm/Vilanterol Tr 1 Each Blst.w.dev, 1 PUFF IN DAILY PRN for SHORTNESS OF BREATH, (Reported) Past Zrpoprs-Ldsfck-Fuffvl Hx Patient Social History Smoking Status: Former Smoker Cigarettes Per Day: 40 Former Smoker, Quit: May 02, 2020 Type Used: Cigarettes 2nd Hand Smoke Exposure: Yes Recent Hopitalizations: No Alcohol Use?: No Have you traveled recently?: No Immunizations Up To Date Tetanus Booster (TDap): More than 5yrs Date of Pneumonia Vaccine: May 02, 2016 Date of Influenza Vaccine: Jan 31, 2020 Seasonal Allergies Seasonal Allergies: No Surgeries History of Surgeries: Yes (Brain "PUS POCKETS ON BRAIN") Surgeries: Orthopedic (carpal tunnel surg) Respiratory History of Respiratory Disorde: Yes Respiratory Disorders: Asthma, Pneumonia, COPD Cardiovascular History of Cardiac Disorders: Yes (WAS TOLD SHE HAD A HEART MURMUR ONE TIME SEVERAL YRS AGO, ) Cardiac Disorders: Atrial Fibrillation Neurological History of Neurological Disord: No Reproductive System Hx Reproductive Disorders: No Genitourinary History of Genitourinary Disor: No Gastrointestinal History of Gastrointestinal Di: No Musculoskeletal History of Musculoskeletal Dis: Yes Musculoskeletal Disorders: Arthritis, Spasms (RLS) Endocrine History of Endocrine Disorders: No HEENT History of HEENT Disorders: No Loss of Vision: Denies Cancer History of Cancer: No Psychosocial History of Psychiatric Problem: No Integumentary History of Skin or Integumenta: No Blood Transfusions History of Blood Disorders: No Family Medical History Significant Family History: Heart Disease, COPD Other Both mom and dad had COPD and HF Family Medial History: Cancer 09 SISTER (BREAST) Family history: Arthritis 03 FATHER 03 MOTHER Family history: Cardiovascular disease 03 FATHER 03 MOTHER Family history: Hypertension 03 MOTHER Heart disease 03 MOTHER History of - respiratory disease 03 FATHER 03 MOTHER 09 BROTHER 09 SISTER Myocardial infarction 03 FATHER 03 MOTHER No Family History of: Abdominal aortic aneurysm Alcoholism Congestive heart failure Dementia Family history: Allergy Family history: Alzheimer's disease Family history: Asthma Family history: Diabetes mellitus Family history: Glaucoma Family history: Thyroid disorder Hereditary disease History of - anemia Kidney disease Parkinson's disease Prostate cancer Psychotic disorder Seizure disorder Stroke Review of Systems-General Constitutional: No chills, No diaphoresis, No dizziness, No fever, No malaise, No weakness; weight loss (10 lbs in last month) EENTM: No ear discharge, No hearing loss, No ear pain, No blurred vision, No double vision, No eye pain, No vision loss, No hoarseness, No mouth pain, No mouth swelling, No epistaxis Respiratory: cough, dyspnea on exertion; No hemoptysis, No phlegm; short of breath; No stridor; wheezing Cardiovascular: No chest pain, No edema, No palpitations, No syncope, No vascular heart diseas; other (a-fib) Gastrointestinal: abdominal pain (LUQ and RUQ), constipation; No diarrhea, No dysphagia, No hematemesis, No heartburn, No jaundice; loss of appetite; No melena; nausea, vomiting Genitourinary: No decreased output, No discharge, No dysuria, No frequency, No hematuria, No hesitancy, No incontinence, No pain : No Musculoskeletal: muscle pain (RLS ), muscle twitching (RLS) Skin: No hx of skin cancer; other (senile pupura and ecchymosis on upper and lower extremities) Psychiatric/Neurological: Paresthesia (RLS), Tingling (RLS) Physical Exam-General Problems Physical Exam Vital Signs Vital Signs - First Documented 12/08/20 12/08/20 07:33 11:02 Temp 36.0 Pulse 78 Resp 18 B/P (MAP) 141/60 (87) Pulse Ox 91 O2 Delivery Room Air O2 Flow Rate 1.00 Capillary Refill : Less Than 3 Seconds General Appearance: mild distress Eyes: Bilateral Eye PERRL, Bilateral Eye EOMI HEENT: PERRL/EOMI, pharynx normal; No scleral icterus (R), No scleral icterus (L) Neck: supple, normal inspection Respiratory: lungs clear, no respiratory distress, no accessory muscle use; No decreased breath sounds; crackles, rhonchi, expiration; No plerual rub Cardiovascular: regular rate, rhythm, no edema, no gallop, no murmur Peripheral Pulses: 2+ Dorsalis Pedis (R), 2+ Left Dors-Pedis (L), 2+ Radial Pulses (R), 2+ Radial Pulses (L) Gastrointestinal: abnormal bowel sounds, distended, guarding, rebound, tenderness; No hernia, No mass, No hepatomegaly, No spleenomegaly Back: no CVA tenderness, no vertebral tenderness Extremities: normal range of motion, no pedal edema, no calf tenderness, normal capillary refill 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, alert, normal mood/affect, oriented x 3 Reflexes: 2+ Bicep (R), 2+ Bicep (L) Skin: normal color, warm/dry, other (senile purpura, ecchymosis throughout upper and lower extremities, skin tear on R latertal ankle) Lymphatic: no adenopathy (cervical, axillary) Data Review Labs Laboratory Tests 12/08/20 07:53: White Blood Count 8.8, Red Blood Count 4.62, Hemoglobin 14.3, Hematocrit 43, Mean Corpuscular Volume 92, Mean Corpuscular Hemoglobin 31, Mean Corpuscular Hemoglobin Concent 34, Red Cell Distribution Width 12.9, Platelet Count 354, Mean Platelet Volume 9.1, Immature Granulocyte % (Auto) 0, Neutrophils (%) (Auto) 73, Lymphocytes (%) (Auto) 7L, Monocytes (%) (Auto) 20H, Eosinophils (%) (Auto) 0, Basophils (%) (Auto) 1, Neutrophils # (Auto) 6.4, Lymphocytes # (Auto) 0.6L, Monocytes # (Auto) 1.8H, Eosinophils # (Auto) 0.0, Basophils # (Auto) 0.0, Immature Granulocyte # (Auto) 0.0, Neutrophils % (Manual) 56, Lymphocytes % (Manual) 7, Monocytes % (Manual) 28, Eosinophils % (Manual) 0, Basophils % (Manual) 0, Band Neutrophils 9, Sodium Level 132L, Potassium Level 4.4, Chloride Level 91L, Carbon Dioxide Level 28, Anion Gap 13, Blood Urea Nitrogen 45H, Creatinine 1.05, Estimat Glomerular Filtration Rate 52, BUN/Creatinine Ratio 43, Glucose Level 139H, Lactic Acid Level 1.15, Calcium Level 9.2, Corrected Calcium 9.3, Total Bilirubin 0.6, Aspartate Amino Transf (AST/SGOT) 160H, Alanine Aminotransferase (ALT/SGPT) 164H, Alkaline Phosphatase 86, Total Protein 7.0, Albumin 3.9, Lipase 9 Assessment/Plan Assessment/Plan Assessment/Plan COPD SBO AFib RLS Plan - NPO and NG tube, IV fluids, possible enema and monitor MICAELA LEWIS DO 12/08/20 1614: History of Present Illness History of Present Illness Time Seen by Provider: 13:49 History of Present Illness Surgery asked to consult regarding high grade partial small bowel obstruction. When I saw pt in her room, she was sitting up and comfortable. Pain mostly controlled with meds. Had not had any flatus or BM's. Complained of abdominal distention and vomiting. Allergies and Home Medications Allergies Coded Allergies: No Known Drug Allergies (Unverified , 08/17/20) Home Medications ALPRAZolam 0.25 Mg Tablet, 0.25 MG PO BID PRN for ANXIETY, (Reported) Acetaminophen/Diphenhydramine 1 Each Tablet, 2 EACH PO HS PRN for SLEEP, (Reported) Albuterol Sulfate 18 Gm Hfa.aer.ad, 2 PUFF IN Q6H PRN for SHORTNESS OF BREATH, (Reported) Amiodarone HCl 200 Mg Tablet, 200 MG PO UD take 2 tabs twice daily for 2 weeks then take one tab twice daily Prescribed by: BERNARD ONEILL on 08/04/1951 Apixaban 5 Mg Tablet, 5 MG PO BID Prescribed by: BERNARD ONEILL on 08/04/1951 Buprenorphine HCl 900 Mcg Film, 900 MCG MM BID, (Reported) Calcium Carbonate/Vitamin D3 1 Each Tablet, 1 EACH PO DAILY, (Reported) Cariprazine Hydrochloride 1.5 Mg Capsule, 1.5 MG PO HS, (Reported) Fish Oil/Dha/Epa 1 Each Capsule, 1 EACH PO DAILY, (Reported) Ipratropium/Albuterol Sulfate 3 Ml Ampul.neb, 3 ML PO Q4 -6H PRN for SHORTNESS OF BREATH, (Reported) Lovastatin 20 Mg Tablet, 20 MG PO HS, (Reported) Multivitamin 1 Each Tablet, 1 EACH PO DAILY, (Reported) Oxycodone HCl 20 Mg Tablet, 20 MG PO TID PRN for PAIN-SEVERE (8-10), (Reported) Pramipexole Di-HCl 0.5 Mg Tablet, 0.5 MG PO HS, (Reported) Pramipexole Di-HCl 1 Mg Tablet, 1 MG PO DAILY, (Reported) Umeclidinium Brm/Vilanterol Tr 1 Each Blst.w.dev, 1 PUFF IN DAILY PRN for SHORTNESS OF BREATH, (Reported) Patient Home Medication List Home Medication List Reviewed: Yes Past Slstzrz-Beslbl-Nvetsv Hx Patient Social History Smoking Status: Former Smoker Surgeries History of Surgeries: Yes Surgeries: Brain Shunt (craniotomy), Orthopedic (carpal tunnel surg) Respiratory History of Respiratory Disorde: Yes Respiratory Disorders: Asthma, Pneumonia, COPD Cardiovascular History of Cardiac Disorders: Yes Cardiac Disorders: Atrial Fibrillation, Hypertension Neurological History of Neurological Disord: No Reproductive System : No Genitourinary History of Genitourinary Disor: No Gastrointestinal History of Gastrointestinal Di: Yes Gastrointestinal Disorders: Obstructive Bowel Musculoskeletal History of Musculoskeletal Dis: Yes Musculoskeletal Disorders: Arthritis Endocrine History of Endocrine Disorders: No HEENT History of HEENT Disorders: No Loss of Vision: Denies Hearing Impairment: Denies Cancer History of Cancer: No Psychosocial History of Psychiatric Problem: Yes Behavioral Health Disorders: Anxiety, Depression Integumentary History of Skin or Integumenta: Yes (bruising) Family Medical History Significant Family History: Heart Disease, COPD, Hypertension Family Medial History: Cancer 09 SISTER (BREAST) Family history: Arthritis 03 FATHER 03 MOTHER Family history: Cardiovascular disease 03 FATHER 03 MOTHER Family history: Hypertension 03 MOTHER Heart disease 03 MOTHER History of - respiratory disease 03 FATHER 03 MOTHER 09 BROTHER 09 SISTER Myocardial infarction 03 FATHER 03 MOTHER Review of Systems-General Constitutional: No chills, No diaphoresis; malaise, weight loss (10 lbs in last month) EENTM: No blurred vision, No double vision, No mouth pain, No mouth swelling, No epistaxis Respiratory: cough, dyspnea on exertion; No hemoptysis; short of breath, wheezing Cardiovascular: No chest pain, No edema; palpitations; No syncope; other (a- fib) Gastrointestinal: abdominal pain (LUQ and RUQ); No jaundice; loss of appetite; No melena; nausea, vomiting Genitourinary: No dysuria, No frequency, No hematuria Musculoskeletal: joint pain, muscle pain (RLS ), muscle twitching (RLS) Psychiatric/Neurological: Anxiety, Depressed, Paresthesia (RLS); Denies Pre- Existing Deficit; Tingling (RLS) Other Pt on blood thinners and bruises easily Physical Exam-General Problems Physical Exam General Appearance: mild distress, thin Eyes: Bilateral Eye PERRL, Bilateral Eye EOMI HEENT: pharynx normal; No scleral icterus (R), No scleral icterus (L) Neck: supple, normal inspection Respiratory: lungs clear, no respiratory distress, no accessory muscle use, crackles, rhonchi, expiration; No plerual rub Cardiovascular: regular rate, rhythm, no murmur Gastrointestinal: no organomegaly, abnormal bowel sounds, distended, guarding, rebound, tenderness, hernia (umbilical) Back: no CVA tenderness, no vertebral tenderness Extremities: normal range of motion, no calf tenderness, normal capillary refill 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 TECHNIQUE: Multiple contiguous axial images were obtained through the abdomen and pelvis after administration of intravenous contrast. Auto Exposure Controls were utilized during the CT exam to meet ALARA standards for radiation dose reduction. All CT scans use one or more of the following dose optimizing techniques: automated exposure control, MA and/or KvP adjustment based on patient size and exam type or iterative reconstruction. INDICATION: Abdominal pain. CORRELATION STUDY: Acute abdominal series radiographs of 12/08/2020. FINDINGS: LOWER THORAX: Clear. LIVER: Very mild central intrahepatic and bile duct prominence. No definitive focal hepatic lesion. GALLBLADDER: Somewhat contracted. No significant extrahepatic bile duct dilatation. SPLEEN: Unremarkable. PANCREAS: Mildly atrophic. ADRENAL GLANDS: Unremarkable. KIDNEYS: Mildly prominent extrarenal pelves. No overt hydronephrosis. Otherwise, normal enhancement. ABDOMINAL AORTA: Scattered areas of wall calcification. Nonaneurysmal. Major branches are patent at their origins. Portal vein is patent. GASTROINTESTINAL TRACT: Stomach is rather significantly distended with fluid and some gas. There is a significant amount of fluid and gas distention of small bowel up to some areas of greater than 4 cm. There is asymmetric caliber change in the low pelvis with some areas of asymmetric small bowel thickening and enhancement. Calcification in the left hemipelvis appears to be just outside the lumen of the gastrointestinal tract. There is moderate stool and some gas within the colon. Appendix is not definitively identified. Small amount of pelvic fluid. No portal venous gas or free intraperitoneal air. URINARY BLADDER: Unremarkable. REPRODUCTIVE: Uterus and adnexa appear generally unremarkable but are limited in assessment. OSSEOUS STRUCTURES: No acute abnormality. OTHER: None. IMPRESSION: 1. Findings consistent with a high degree small bowel obstruction with transition likely in the mid to lower abdomen/pelvis. 2. Moderate colonic stool retention. Dictated on workstation # [id number] Dict: 12/08/20 0935 Trans: 12/08/20 0947 [id number] Interpreted by: JANY QUILES DO Assessment/Plan Assessment/Plan Assessment/Plan PSBO Fecal Impaction COPD, hx of Afib Restless leg syndrome Long-term anticoagulation NPO, NGT, IV fluids, pain control and anti-emetics as needed. I reviewed the CT myself and agree with findings; I am not sure why she has such distended proximal small bowel. She has not had surgery before, therefore it is most likely due to the severe fecal impaction. May need to do small bowel follow through, possibly enemas and maybe even lactulose. Pt encouraged to ambulate and use IS. Supervisory-Addendum Brief Verification & Attestation Participated in pt care: history, MDM, physical Personally performed: exam, history, MDM, supervision of care Care discussed with: Medical Student Procedures: n/a Verification and Attestation of Medical Student E/M Service A medical student performed and documented this service. I then reviewed and verified all information documented by the medical student and made modifications to such information, when appropriate. I personally performed a physical exam, medical decision making and then discussed any differences between the notes and made revisions as necessary to create one note. Micaela Lewis , 12/08/20 , 16:22 DANY BURROWS Dec 08, 2020 13:29 MICAELA LEWIS DO Dec 08, 2020 16:14
[2020-12-08] MEDS: NS IV 1000 ML 1,000 ML IV SCH (14:26)
--- NOTE | 2020-12-08 14:28 | History & Physical-Hospitalist ---
History of Present Illness HPI/Chief Complaint Pt is a 65yoF with a PMH of COPD, atrial fibrillation, brain abscess s/p craniotomy years ago who presented to the ER due to abdominal pain. She was in the ER last night and imaging was concerning for obstruction but she eloped from the ER. She returned when he pain got worse and CT confirmed high grade SBO. She was admitted for fuirhter management. She reports her pain is well controlled currently. She states her last BM was 3 days ago and she last passed gas yesterday. She denies any previous history of SBO or abdominal surgery. Source: patient Date Seen 12/08/20 Time Seen by a Provider: 14:17 Attending Physician Broderick Guerrier MD PCP Alphonso Mireles DO Referring Physician Date of Admission Dec 08, 2020 at 12:17 Home Medications & Allergies Home Medications Reviewed patient Home Medication Reconciliation performed by pharmacy medication reconciliations agricultural engineering technicians and/or nursing. Patients Allergies have been reviewed. Allergies Allergies Coded Allergies No Known Drug Allergies (Unverified08/17/20) Past Qglbhjw-Gpehje-Sbrhct Hx Patient Social History Tobacco Use?: No Tobacco type used: Cigarettes Smoking Status: Former Smoker Use of E-Cig and/or Vaping dev: No Substance use?: No Alcohol Use?: No Pt feels they are or have been: No Immunizations Up To Date Date of Influenza Vaccine: Jan 31, 2020 First/Initial COVID19 Vaccinat: JUNE 2020 Second COVID19 Vaccination Miguel: JUNE 2020 Date of Pneumonia Vaccine: May 02, 2016 Seasonal Allergies Seasonal Allergies: No Current Status Advance Directives: No Communicates: Verbally Primary Language: Syrian Preferred Spoken Language: Syrian Is interpretation needed?: No Implanted or Applied Medical D: None Past Medical History Surgeries: Neurological, Orthopedic Asthma, Pneumonia, COPD Atrial Fibrillation Arthritis, Spasms Blood Disorders: No history of brain abscess s/p craniotomy Family Medical History Reviewed Nursing Family Hx Cancer 09 SISTER (BREAST) Family history: Arthritis 03 FATHER 03 MOTHER Family history: Cardiovascular disease 03 FATHER 03 MOTHER Family history: Hypertension 03 MOTHER Heart disease 03 MOTHER History of - respiratory disease 03 FATHER 03 MOTHER 09 BROTHER 09 SISTER Myocardial infarction 03 FATHER 03 MOTHER No Family History of: Abdominal aortic aneurysm Alcoholism Congestive heart failure Dementia Family history: Allergy Family history: Alzheimer's disease Family history: Asthma Family history: Diabetes mellitus Family history: Glaucoma Family history: Thyroid disorder Hereditary disease History of - anemia Kidney disease Parkinson's disease Prostate cancer Psychotic disorder Seizure disorder Stroke Review of Systems Constitutional: No chills, No fever EENTM: no symptoms reported Respiratory: No cough, No dyspnea on exertion, No short of breath; wheezing (chronic) Cardiovascular: no symptoms reported Gastrointestinal: see HPI Genitourinary: no symptoms reported Musculoskeletal: no symptoms reported Skin: no symptoms reported Psychiatric/Neurological: No Symptoms Reported Physical Exam Physical Exam Vital Signs Vital Signs - First Documented 12/08/20 12/08/20 07:33 11:02 Temp 36.0 Pulse 78 Resp 18 B/P (MAP) 141/60 (87) Pulse Ox 91 O2 Delivery Room Air O2 Flow Rate 1.00 Capillary Refill : Less Than 3 Seconds Height, Weight, BMI Height: 5'3.00" Weight: 100lbs. 0oz. [id number]; 139.17 BMI Method:Stated General Appearance: No Apparent Distress, Chronically ill, Thin HEENT: PERRL/EOMI, Moist Mucous Membranes; No Scleral Icterus (L), No Scleral Icterus (R) Neck: Normal Inspection, Supple Respiratory: No Accessory Muscle Use; No Rhonci; Wheezing Cardiovascular: No JVD, Irregularly Irregular Gastrointestinal: Normal Bowel Sounds, Non Tender, Soft Extremity: No Calf Tenderness, No Pedal Edema Neurologic/Psychiatric: Alert, Oriented x3 Results Results/Procedures Labs Laboratory Tests 12/08/20 07:53 Patient resulted labs reviewed. Imaging: Reviewed Imaging Report Imaging [facility], [place] NAME: ALBA VIERA Florentino [facility] REC#: [id number] PT STATUS: ADM IN : 1955 PHYSICIAN: NIC MOSLEY DO ADMIT DATE: 12/08/20 Signed Date of Exam:12/08/20 CT ABDOMEN/PELVIS W PROCEDURE: CT abdomen and pelvis with contrast. TECHNIQUE: Multiple contiguous axial images were obtained through the abdomen and pelvis after administration of intravenous contrast. Auto Exposure Controls were utilized during the CT exam to meet ALARA standards for radiation dose reduction. All CT scans use one or more of the following dose optimizing techniques: automated exposure control, MA and/or KvP adjustment based on patient size and exam type or iterative reconstruction. INDICATION: Abdominal pain. CORRELATION STUDY: Acute abdominal series radiographs of 12/08/2020. FINDINGS: LOWER THORAX: Clear. LIVER: Very mild central intrahepatic and bile duct prominence. No definitive focal hepatic lesion. GALLBLADDER: Somewhat contracted. No significant extrahepatic bile duct dilatation. SPLEEN: Unremarkable. PANCREAS: Mildly atrophic. ADRENAL GLANDS: Unremarkable. KIDNEYS: Mildly prominent extrarenal pelves. No overt hydronephrosis. Otherwise, normal enhancement. ABDOMINAL AORTA: Scattered areas of wall calcification. Nonaneurysmal. Major branches are patent at their origins. Portal vein is patent. GASTROINTESTINAL TRACT: Stomach is rather significantly distended with fluid and some gas. There is a significant amount of fluid and gas distention of small bowel up to some areas of greater than 4 cm. There is asymmetric caliber change in the low pelvis with some areas of asymmetric small bowel thickening and enhancement. Calcification in the left hemipelvis appears to be just outside the lumen of the gastrointestinal tract. There is moderate stool and some gas within the colon. Appendix is not definitively identified. Small amount of pelvic fluid. No portal venous gas or free intraperitoneal air. URINARY BLADDER: Unremarkable. REPRODUCTIVE: Uterus and adnexa appear generally unremarkable but are limited in assessment. OSSEOUS STRUCTURES: No acute abnormality. OTHER: None. IMPRESSION: 1. Findings consistent with a high degree small bowel obstruction with transition likely in the mid to lower abdomen/pelvis. 2. Moderate colonic stool retention. Dictated by: Dictated on workstation # [id number] Dict: 12/08/2035 Trans: 12/08/20 [id number] Interpreted by: JANY QUILES DO Electronically signed by: JANY QUILES DO 12/08/20 1734 [facility], [place] NAME: ALBA VIERA [facility] REC#: [id number] PT STATUS: ADM IN : 1955 PHYSICIAN: MICAELA LEWIS DO ADMIT DATE: 12/08/20 Signed Date of Exam:12/08/20 CHEST 1 VIEW, AP/PA ONLY INDICATION: NG tube placement. EXAMINATION: Portable chest at 3:35 PM. FINDINGS: The NG tube tip projects over the stomach. The heart size and pulmonary vascularity are normal. The lungs are clear. There are no effusions or pneumothoraces. IMPRESSION: The NG tube appears to be in the stomach. Dictated by: Dictated on workstation # [id number] Dict: 12/08/20 1543 Trans: 12/08/20 1601 [id number] Interpreted by: ALEX ADAMS MD Electronically signed by: ALEX ADAMS MD 12/08/20 1601 Assessment/Plan Admission Diagnosis SBO Admission Status: Inpatient Order (span 2 midnights) Reason for Inpatient Admission: see below Assessment and Plan high grade SBO NGT ordered Pain regimen Surgery consulted, appreciate recs NPO Discussed natural course of illness and plan to monitor for return of bowel function COPD Wheezing but reports this is baseline for her MAT protocol Currently on 2lpm Family to bring in her inhalers from home a-fib Normally on anticoagulation but has not taken it for a few days as not feeling well Will hold today in case she needs surgery Diagnosis/Problems Diagnosis/Problems (1) Small bowel obstruction Status: Acute (2) Paroxysmal atrial fibrillation Status: Acute (3) Chronic respiratory failure with hypoxia, on home O2 therapy Status: Chronic BRODERICK GUERRIER MD Dec 08, 2020 14:27
--- NOTE | 2020-12-08 15:53 | Diagnostic Imaging Report ---
INDICATION: NG tube placement. EXAMINATION: Portable chest at 3:35 PM. FINDINGS: The NG tube tip projects over the stomach. The heart size and pulmonary vascularity are normal. The lungs are clear. There are no effusions or pneumothoraces. IMPRESSION: The NG tube appears to be in the stomach. Dictated by: Dictated on workstation # [id number]
[2020-12-08 16:20] VITALS: BP 115/68
[2020-12-08] MEDS ORDERED: CLOP75TA28 PO (16:53)
[2020-12-08] MEDS ORDERED: MONT10TA32 PO (16:53)
[2020-12-08] MEDS ORDERED: OXYC10TA7 PO (16:53)
[2020-12-08] MEDS ORDERED: MULT-1136 PO (16:53)
[2020-12-08] MEDS ORDERED: AMIO200T6 PO (16:53)
[2020-12-08] MEDS ORDERED: AMT10T PO (16:53)
[2020-12-08] MEDS ORDERED: APIX5TAB PO (16:53)
[2020-12-08] MEDS ORDERED: BUDE10.7 INH (16:53)
[2020-12-08 19:20] VITALS: BP 132/64
[2020-12-08] MEDS ORDERED: PATIENT MAY USE OWN MEDS, ALL MC SCH (19:30)
[2020-12-08] MEDS: fentaNYL INJ 100 MCG/2 ML AMP IV PRN (19:36)
[2020-12-08 19:43] VITALS: BP 132/61
[2020-12-08] MEDS ORDERED: RT-ALBUTEROL/IPRATROPIUM 3 ML (DUONEB) VIAL INH PRN (20:00)
[2020-12-08] MEDS ORDERED: NON-FORMULARY MEDICATION 1 EA EA (Budesonide/Glycopyr/Formoterol (Breztri Aerosphere Inhal INH SCH (21:00)
[2020-12-08] MEDS ORDERED: NON-FORMULARY MEDICATION 1 EA EA (Cariprazine Hydrochloride (Vraylar) 1.5 MG) PO SCH (21:00)
[2020-12-08 23:30] VITALS: BP 124/67
[2020-12-09] MEDS: NS IV 1000 ML 1,000 ML IV SCH ×3 (00:01→18:50)
[2020-12-09 03:47] VITALS: BP 122/68
[2020-12-09 06:06] LABS: BASOPHILS % (AUTO) 1 % (0-10); EOSINOPHILS % (AUTO) 0 % (0-10); HEMATOCRIT 38 % (35-52); HEMOGLOBIN 12.7 g/dL (11.5-16.0); LYMPHOCYTES # (AUTO) 0.3 10^3/uL (1.0-4.0); LYMPHOCYTES % (AUTO) 6 % (12-44); MEAN CORPUSCULAR HEMOGLOBIN 31 pg (25-34); MEAN CORPUSCULAR HGB CONC 33 g/dL (32-36); MEAN CORPUSCULAR VOLUME 95 fL (80-99); MEAN PLATELET VOLUME 9.2 fL (9.0-12.2); MONOCYTES # (AUTO) 1.1 10^3/uL (0.0-1.0); MONOCYTES % (AUTO) 19 % (0-12); NEUTROPHILS % (AUTO) 73 % (42-75); PLATELET COUNT 231 10^3/uL (130-400); WHITE BLOOD COUNT 5.4 10^3/uL (4.3-11.0)
[2020-12-09 06:23] LABS: POTASSIUM 4.2 MMOL/L (3.6-5.0)
[2020-12-09 06:24] LABS: CALCIUM 8.5 MG/DL (8.5-10.1)
[2020-12-09 06:28] LABS: CREATININE SERUM 0.74 MG/DL (0.60-1.30)
[2020-12-09 08:00] VITALS: BP 149/71
[2020-12-09] MEDS: fentaNYL INJ 100 MCG/2 ML AMP IV PRN (08:03)
--- NOTE | 2020-12-09 08:35 | Progress Note - Surgery ---
FLAKITA MUNGUIA 12/09/20 0835: Subjective Date Seen by a Provider: Dec 09, 2020 Time Seen by a Provider: 08:34 Subjective/Events-last exam PT continues in hospital for small bowel obstruction. She is NPO as of yesterday. She complains about the NG tube placement, placed yesterday. She continues to have some abdominal tenderness on palpation. She reports passing flatus, and having a BM this morning. Reports stool is dark in color. Denies fever, nausea and vomiting. Review of Systems General: No Chills, No Night Sweats HEENT: No Head Aches, No Visual Changes Gastrointestinal: No: Nausea, Vomiting Genitourinary: No Dysuria, No Frequency Neurological: No: Numbness, Change in speech Focused Exam Lactate Level 12/08/20 07:53: Lactic Acid Level 1.15 Objective Exam Vital Signs Date Time Temp Pulse Resp B/P (MAP) Pulse Ox O2 Delivery O2 Flow Rate FiO2 12/09/20 08:00 37.1 96 20 149/71 (97) 92 Nasal Cannula 2.00 12/09/20 07:00 89 12/09/20 03:47 37.2 87 18 122/68 (86) 93 Nasal Cannula 2.00 12/09/20 01:00 86 12/08/20 23:30 37.2 85 18 124/67 (86) 93 Nasal Cannula 2.00 12/08/20 22:00 2.00 12/08/20 21:02 84 12/08/20 19:43 37.0 80 94 24 12/08/20 19:30 Nasal Cannula 1.00 12/08/20 19:20 37.0 80 20 132/64 (86) 94 Nasal Cannula 2.00 12/08/20 16:20 37.0 78 20 115/68 (84) 92 Nasal Cannula 2.00 12/08/20 12:56 Nasal Cannula 2.00 12/08/20 12:31 36.6 82 20 126/75 (92) 98 Room Air 12/08/20 11:02 36.0 85 18 146/71 (87) 95 Nasal Cannula 1.00 I & O 12/09/20 07:00 Intake Total 2000 ml Output Total 1125 ml Balance 875 ml Capillary Refill : Less Than 3 Seconds General Appearance: No Apparent Distress, Chronically ill, Thin HEENT: PERRL/EOMI, Moist Mucous Membranes; No Scleral Icterus (L), No Scleral Icterus (R) Neck: Normal Inspection Respiratory: No Accessory Muscle Use; No Rhonci; Wheezing Cardiovascular: No JVD, Irregularly Irregular Gastrointestinal: no organomegaly, abnormal bowel sounds, distended, guarding, tenderness Extremity: No Calf Tenderness, No Pedal Edema Neurologic/Psychiatric: Alert, Oriented x3 Results Lab Laboratory Tests 12/09/20 05:40: Sodium Level 138, Potassium Level 4.2, Chloride Level 101, Carbon Dioxide Level 26, Anion Gap 11, Blood Urea Nitrogen 33H, Creatinine 0.74, Estimat Glomerular Filtration Rate 78, BUN/Creatinine Ratio 45, Glucose Level 83, Calcium Level 8.5 12/09/20 05:50: White Blood Count 5.4, Red Blood Count 4.04, Hemoglobin 12.7, Hematocrit 38, Mean Corpuscular Volume 95, Mean Corpuscular Hemoglobin 31, Mean Corpuscular Hemoglobin Concent 33, Red Cell Distribution Width 13.2, Platelet Count 231, Mean Platelet Volume 9.2, Immature Granulocyte % (Auto) 0, Neutrophils (%) (Auto) 73, Lymphocytes (%) (Auto) 6L, Monocytes (%) (Auto) 19H, Eosinophils (%) (Auto) 0, Basophils (%) (Auto) 1, Neutrophils # (Auto) 4.0, Lymphocytes # (Auto) 0.3L, Monocytes # (Auto) 1.1H, Eosinophils # (Auto) 0.0, Basophils # (Auto) 0.0, Immature Granulocyte # (Auto) 0.0 Assessment/Plan Assessment/Plan Assessment/Plan PSBO Fecal Impaction COPD, hx of Afib Restless leg syndrome Long-term anticoagulation Continue NPO, NGT, IV fluids, pain control and anti-emetics as needed. SBO likely resolving due her BM and passing of flatus. Continue to monitor color of stool during hospital stay. Will continue to monitor her status for possible discharge. Consider repeat imaging. Pt encouraged to ambulate. EDIL LEHMAN DO 12/09/20 1303: Subjective Time Seen by a Provider: 11:50 Subjective/Events-last exam Pt seen and examined, stating she wants NGT out now. She has had 3 BMs and denies N/V. Review of Systems General: No Chills, No Night Sweats Pulmonary: No Dyspnea, No Cough Cardiovascular: No: Chest Pain, Palpitations Gastrointestinal: No: Nausea, Vomiting Objective Exam General Appearance: No Apparent Distress, Chronically ill HEENT: Moist Mucous Membranes Respiratory: No Accessory Muscle Use; No Rhonci; Wheezing Cardiovascular: Irregularly Irregular Gastrointestinal: soft, no organomegaly, distended, guarding, tenderness (mild and diffuse) Assessment/Plan Assessment/Plan Assessment/Plan PSBO - probably improving and pt threatening to leave. Fecal Impaction - pt encouraged to increase fluids and can take Miralax at home COPD, hx of Afib Restless leg syndrome Long-term anticoagulation Will d/c NGT and try clears, IV fluids, pain control and anti-emetics as needed. SBO likely resolving due her BM and passing of flatus. Pt encouraged to ambulate and use IS. Supervisory-Addendum Brief Verification & Attestation Participated in pt care: history, MDM, physical Personally performed: exam, history, MDM, supervision of care Care discussed with: Medical Student Procedures: n/a Verification and Attestation of Medical Student E/M Service A medical student performed and documented this service. I then reviewed and verified all information documented by the medical student and made modifications to such information, when appropriate. I personally performed a physical exam, medical decision making and then discussed any differences between the notes and made revisions as necessary to create one note. Edil Lehman , 12/09/20 , 13:03 FLAKITA MUNGUIA Dec 09, 2020 08:35 EDIL LEHMAN DO Dec 09, 2020 13:03
[2020-12-09] MEDS: RT-ALBUTEROL/IPRATROPIUM 3 ML (DUONEB) VIAL INH SCH ×2 (09:26→22:05)
[2020-12-09 12:00] VITALS: BP 129/71
--- NOTE | 2020-12-09 14:05 | Progress Note - Hospitalist ---
Subjective HPI/CC On Admission Date Seen by Provider: Dec 09, 2020 Time Seen by Provider: 13:59 Pt is a 65yoF with a PMH of COPD, atrial fibrillation, brain abscess s/p craniotomy years ago who presented to the ER due to abdominal pain. She was in the ER last night and imaging was concerning for obstruction but she eloped from the ER. She returned when he pain got worse and CT confirmed high grade SBO. She was admitted for fuirhter management. She reports her pain is well controlled currently. She states her last BM was 3 days ago and she last passed gas yesterday. She denies any previous history of SBO or abdominal surgery. Subjective/Events-last exam Pt reports havign BMs. Is very irritated by the NGT and wants it out and wants to leave today. Advised her that the NGT can likely come out today but that she would not be medically optimized for DC today. She is insistent on leaving today. Focused Exam Lactate Level 12/08/20 07:53: Lactic Acid Level 1.15 Objective Exam Vital Signs Vital Signs Date Time Temp Pulse Resp B/P (MAP) Pulse Ox O2 Delivery O2 Flow Rate FiO2 12/09/20 15:33 38.0 72 18 125/61 (82) 93 Nasal Cannula 2.00 12/08/20 19:43 24 Capillary Refill : Less Than 3 Seconds General Appearance: No Apparent Distress, WD/WN Respiratory: Lungs Clear, No Respiratory Distress Cardiovascular: Regular Rate, Rhythm, No Murmur Gastrointestinal: Normal Bowel Sounds, Non Tender, Soft; No Distended Neurologic/Psychiatric: Alert, Oriented x3 Results/Procedures Lab Laboratory Tests 12/09/20 05:40 12/09/20 05:50 Patient resulted labs reviewed. Imaging: Reviewed Imaging Report Assessment/Plan Assessment and Plan Assess & Plan/Chief Complaint high grade SBO NGT ocan likely come out today after Fallon sees her- then start clears Pain regimen Surgery consulted, appreciate recs COPD MAT protocol Currently on 2lpm Family to bring in her inhalers from home a-fib Normally on anticoagulation but has not taken it for a few days as not feeling well Resume home meds Restless leg syndrome resume home pain regimen Diagnosis/Problems Diagnosis/Problems (1) Small bowel obstruction Status: Acute (2) Paroxysmal atrial fibrillation Status: Acute (3) Chronic respiratory failure with hypoxia, on home O2 therapy Status: Chronic BRODERICK MULLER MD Dec 09, 2020 14:05
[2020-12-09] MEDS ORDERED: NON-FORMULARY MEDICATION 1 EA EA (Oxycodone HCl 10 MG) PO SCH (14:15)
[2020-12-09 15:33] VITALS: BP 125/61
[2020-12-09 19:32] VITALS: BP 116/66
[2020-12-09] MEDS ORDERED: ACETAMINOPHEN 325 MG TABLET ONE (20:26)
[2020-12-09] MEDS: AMIODARONE 200 MG (CORDARONE) TAB PO SCH (20:29)
[2020-12-09] MEDS: APIXABAN 5 MG (ELIQUIS) TABLET PO SCH (20:30)
[2020-12-09] MEDS: ACETAMINOPHEN 325 MG TABLET PO PRN (20:30)
[2020-12-09] MEDS ORDERED: NON-FORMULARY MEDICATION 1 EA EA (Lovastatin 40 MG) PO SCH (21:00)
[2020-12-09] MEDS ORDERED: MONTELUKAST 10 MG (SINGULAIR) TAB PO SCH (21:00)
[2020-12-09] MEDS ORDERED: NON-FORMULARY MEDICATION 1 EA EA (Pramipexole Di-HCl (Pramipexole Dihydrochloride) 1 MG) PO SCH (21:00)
[2020-12-09] MEDS ORDERED: PRAMIPEXOLE 0.5 MG TAB (MIRAPEX) PO SCH (21:00)
[2020-12-09] MEDS ORDERED: AMITRIPTYLINE 10 MG (ELAVIL) TAB PO SCH (21:00)
[2020-12-09] MEDS ORDERED: CLOPIDOGREL 75 MG (PLAVIX) TABLET PO SCH (21:00)
[2020-12-09] MEDS ORDERED: AtorvaSTATin TABLET 10 MG TABLET PO SCH (21:00)
[2020-12-10] VITALS: BP 114/54
[2020-12-10 04:12] VITALS: BP 133/61
[2020-12-10] MEDS: NS IV 1000 ML 1,000 ML IV SCH (04:12)
[2020-12-10] MEDS: ACETAMINOPHEN 325 MG TABLET PO PRN (04:16)
--- NOTE | 2020-12-10 07:20 | Progress Note - Surgery ---
FLAKITA MUNGUIA 12/10/20 0720: Subjective Date Seen by a Provider: Dec 10, 2020 Time Seen by a Provider: 07:12 Subjective/Events-last exam PT continues in hospital for resolving SBO. NG tube was removed. PT denies abdominal pain. She is passing flatus, and reports having bowel movements. Descr ibes the stool as "watery with small chunks". Denies nausea, vomiting, and fever. Abdomen was non tender on palpation, normal bowel sounds all 4 quadrant. Some gas noted on percussion in left upper quadrant. Review of Systems General: No Chills, No Night Sweats HEENT: No Head Aches, No Visual Changes Gastrointestinal: No: Nausea, Vomiting Focused Exam Lactate Level 12/08/20 07:53: Lactic Acid Level 1.15 Objective Exam Vital Signs Date Time Temp Pulse Resp B/P (MAP) Pulse Ox O2 Delivery O2 Flow Rate FiO2 12/10/20 05:15 91 Nasal Cannula 4.00 12/10/20 04:46 37.5 12/10/20 04:16 37.9 12/10/20 04:12 37.9 72 22 133/61 (85) 93 Nasal Cannula 5.00 12/10/20 01:00 93 12/10/20 00:00 37.3 68 22 114/54 (74) 91 Nasal Cannula 5.00 12/09/20 22:05 95 Nasal Cannula 3.00 12/09/20 21:00 37.6 12/09/20 21:00 37.6 12/09/20 20:40 Nasal Cannula 2.00 12/09/20 20:30 38.5 12/09/20 19:32 38.5 73 22 116/66 (83) 94 Nasal Cannula 2.00 12/09/20 19:00 71 12/09/20 15:33 38.0 72 18 125/61 (82) 93 Nasal Cannula 2.00 12/09/20 13:00 80 12/09/20 12:00 37.0 97 20 129/71 (90) 89 Nasal Cannula 2.00 12/09/20 09:26 92 Nasal Cannula 3.00 12/09/20 08:46 Nasal Cannula 1.00 12/09/20 08:00 37.1 96 20 149/71 (97) 92 Nasal Cannula 2.00 I & O 12/10/20 07:00 Intake Total 1611 ml Output Total 2 ml Balance 1609 ml Capillary Refill : Less Than 3 Seconds General Appearance: No Apparent Distress, WD/WN HEENT: Moist Mucous Membranes Neck: Normal Inspection Respiratory: Lungs Clear, No Respiratory Distress Cardiovascular: Regular Rate, Rhythm, No Murmur Gastrointestinal: soft, no organomegaly, distended Extremity: No Calf Tenderness, No Pedal Edema Neurologic/Psychiatric: Alert, Oriented x3 Assessment/Plan Assessment/Plan Assessment/Plan PSBO - probably improving Fecal Impaction - pt encouraged to increase fluids and can take Miralax at home COPD, hx of Afib Restless leg syndrome Long-term anticoagulation NGT was d/c. Continue IV fluids, pain control and anti-emetics as needed. SBO is likely continuing to resolve due her BM and passing of flatus. Continue to ask pt about quality of BMs during her stay in hospital. PT is very interested in leaving the hospital, will review status for discharge. EDIL LEHMAN DO 12/10/20 1214: Subjective Time Seen by a Provider: 11:55 Subjective/Events-last exam Pt seen and examined, NAD and still having BMs; tolerating clears. Review of Systems General: No Chills, No Night Sweats HEENT: No Head Aches, No Visual Changes Pulmonary: No Dyspnea, No Cough Cardiovascular: No: Chest Pain, Palpitations Gastrointestinal: No: Nausea, Vomiting Objective Exam General Appearance: No Apparent Distress, WD/WN Respiratory: Lungs Clear, Normal Breath Sounds, No Accessory Muscle Use, No Respiratory Distress Cardiovascular: Regular Rate, Rhythm, No Murmur Gastrointestinal: soft, no organomegaly, distended Assessment/Plan Assessment/Plan Assessment/Plan PSBO - probably improving Fecal Impaction - pt encouraged to increase fluids and can take Miralax at home COPD, hx of Afib Restless leg syndrome Long-term anticoagulation Increase to soft diet, pain control and anti-emetics as needed. SBO is likely continuing to resolve due her BM and passing of flatus. Home today if tolerates soft diet. Supervisory-Addendum Brief Verification & Attestation Participated in pt care: history, MDM, physical Personally performed: exam, history, MDM, supervision of care Care discussed with: Medical Student Procedures: n/a Verification and Attestation of Medical Student E/M Service A medical student performed and documented this service. I then reviewed and verified all information documented by the medical student and made modifications to such information, when appropriate. I personally performed a physical exam, medical decision making and then discussed any differences between the notes and made revisions as necessary to create one note. Edil Lehman , 12/10/20 , 12:14 FLAKITA MUNGUIA Dec 10, 2020 07:20 EDIL LEHMAN DO Dec 10, 2020 12:14
[2020-12-10] MEDS: RT-ALBUTEROL/IPRATROPIUM 3 ML (DUONEB) VIAL INH SCH (07:21)
[2020-12-10 08:00] VITALS: BP 130/59
[2020-12-10] MEDS ORDERED: CASIRIVIMAB/IMDEVIMAB 1,200 MG in NS (IVPB) 250 ML IV ONE (08:15)
[2020-12-10] MEDS ORDERED: diphenhydrAMINE 50 MG/ML INJ (BENADRYL) IV PRN (08:15)
[2020-12-10] MEDS ORDERED: EPINEPHrine INJECTION 1 MG/ML AMP IM PRN (08:15)
[2020-12-10] MEDS: AMIODARONE 200 MG (CORDARONE) TAB PO SCH (08:45)
[2020-12-10] MEDS: APIXABAN 5 MG (ELIQUIS) TABLET PO SCH (08:45)
[2020-12-10 11:47] VITALS: BP 110/55
--- NOTE | 2020-12-10 12:18 | Discharge Summary ---
Diagnosis/Chief Complaint Date of Admission Dec 08, 2020 at 12:17 Date of Discharge Admission Diagnosis SBO Primary Care Alphonso Mireles DO Discharge Diagnosis (1) Small bowel obstruction Status: Acute (2) Paroxysmal atrial fibrillation Status: Acute (3) Chronic respiratory failure with hypoxia, on home O2 therapy Status: Chronic Discharge Summary Discharge Physical Exam Allergies: Coded Allergies: No Known Drug Allergies (Unverified , 08/17/20) Vitals & I&Os Vital Signs Date Time Temp Pulse Resp B/P (MAP) Pulse Ox O2 Delivery O2 Flow Rate FiO2 12/10/20 11:47 36.5 61 20 110/55 (73) 93 Nasal Cannula 2.00 12/08/20 19:43 24 General Appearance: No Apparent Distress, Chronically ill Respiratory: Lungs Clear, No Respiratory Distress Cardiovascular: Regular Rate, Rhythm, No Murmur Gastrointestinal: Normal Bowel Sounds, Soft Neurologic/Psychiatric: Alert, Oriented x3 Hospital Course Pt was admitted with a high grade small bowel obstruction. She had an NGT placed for decompression and did well. She was passing gas and had multiple BMs. NGT was removed and she was able to tolerate clear liquids. Pain was controlled. She was able to be discharged home in stable and improved condition. She was qualified for oxygen as well and this was arranged prior to DC though she refused to wear portable oxygen. Labs (last 24 hrs) Patient resulted labs reviewed. Imaging: Reviewed Imaging Report Discussion & Recommendations Discharge Planning: >30 minutes discharge planning Discharge Home Medications: Active Scripts Active Reported Montelukast Sodium 10 Mg Tablet 10 Mg PO HS Amiodarone HCl 200 Mg Tablet 200 Mg PO BID Amitriptyline HCl 10 Mg Tablet 10 Mg PO HS Breztri Aerosphere Inhaler (Budesonide/Glycopyr/Formoterol) 10.7 Gm Hfa.aer.ad 2 Puff INH BID Oxycodone HCl 10 Mg Tablet 10 Mg PO Q4 -6H Eliquis (Apixaban) 5 Mg Tablet 5 Mg PO BID Clopidogrel (Clopidogrel Bisulfate) 75 Mg Tablet 75 Mg PO HS Multivitamin 1 Each Tablet 1 Each PO DAILY Fish Oil 1,200 mg Fish Oil (Fish Oil/Dha/Epa) 1 Each Capsule 1 Each PO DAILY Pramipexole Dihydrochloride (Pramipexole Di-HCl) 1 Mg Tablet 1 Mg PO HS Vraylar (Cariprazine Hydrochloride) 1.5 Mg Capsule 1.5 Mg PO HS Lovastatin 20 Mg Tablet 40 Mg PO HS TAKES 2 (20MG) TABS Instructions to patient/family Please see electronic discharge instructions given to patient. BRODERICK MULLER MD Dec 10, 2020 12:18
--- NOTE | 2020-12-10 14:34 | Discharge Inst-Simple/Standard ---
Discharge Inst-Standard Discharge Medications New, Converted or Re-Newed RX: Transmitted to Pharmacy Patient Instructions/Follow Up Plan of Care/Instructions/FU: Please continue to take your medications as written. Please follow up with your primary care doctor to follow up this hospital stay. Activity as Tolerated: Yes Discharge Diet: No Restrictions Return to The Hospital For: Chest pain, shortness of breath, weakness, confusion, abdominal pain, fever, if you feel you are getting worse. BRODERICK MULLER MD Dec 10, 2020 14:33
[2020-12-10 15:18] VITALS: BP 110/55
== END 2020-12-10 15:28 | disposition home or self-care (01) | DRG 389 ==
LOC: EDUNIT# 07:32 → ER FS 07:33 → 4TH 12:17
PROVIDERS: ADMIT Family Medicine; ATTEND Family Medicine
PROC: 0D9670Z Drainage of Stomach with Drainage Device, Via Natural or Artificial Opening (ICD-10-PCS; principal; 2020-12-08)
DX: K56.600 Partial intestinal obstruction, unspecified as to cause (principal); J96.11 Chronic respiratory failure with hypoxia; I48.0 Paroxysmal atrial fibrillation; G25.81 Restless legs syndrome; J44.9 Chronic obstructive pulmonary disease, unspecified; F41.9 Anxiety disorder, unspecified; F32.9 Major depressive disorder, single episode, unspecified; Z87.891 Personal history of nicotine dependence; Z79.891 Long term (current) use of opiate analgesic; Z79.01 Long term (current) use of anticoagulants; Z99.81 Dependence on supplemental oxygen; Z79.899 Other long term (current) drug therapy
CPT/HCPCS: 36415; 71045; 74022; 74177; 80048; 80053; 81000; 83605; 83690; 85007; 85025; 85027; 87636; 87804; 94640; 94760; 99282

== ENCOUNTER → 2022-02-09 | Outpatient (CLI) | payer MEDICARE ==
[~2022-02-09] MED LIST changes: -AMIO200T6 PO; +AMIO200T65 PO; +AMT10T PO; +BUDE10.7 INH; +MONT-40 PO; +MULT-1136 PO; +OXYC10TA7 PO
--- NOTE | 2022-02-09 13:19 | Diagnostic Imaging Report ---
Indication: Right shoulder pain AP, oblique, and transscapular and transaxillary views of the right shoulder are obtained. No fracture or acute bony abnormality is seen. There is degenerative change of the glenohumeral joint with marked joint space narrowing. There is slight widening of the AC joint which appears chronic. Impression: Chronic changes of right shoulder with no acute abnormality detected. Dictated by: Dictated on workstation # [id number]
== END ==
LOC: RAD FS 09:53
PROVIDERS: ATTEND Nurse Practitioner
DX: M25.511 Pain in right shoulder (principal)
CPT/HCPCS: 73030

== ENCOUNTER 2022-06-08 05:47 | Emergency (ER) | payer MEDICARE ==
[~2022-06-08] VITALS: Ht 160 cm; Wt 50.8 kg
[2022-06-08 05:55] VITALS: BP 163/70
[2022-06-08] MEDS ORDERED: methylPREDNISolone 125 MG (Solu-MEDROL) VIAL IVP STA (06:05)
[2022-06-08] MEDS ORDERED: KETOROLAC 15 MG/ML VIAL IVP STA (06:05)
[2022-06-08] MEDS ORDERED: NS IV 1000 ML 1,000 ML IV STA (06:05)
[2022-06-08] MEDS ORDERED: RT-ALBUTEROL/IPRATROPIUM 3 ML (DUONEB) VIAL INH STA (06:05)
[2022-06-08 06:21] LABS: BASOPHILS # (AUTO) 0.1 10^3/uL (0.0-0.1); BASOPHILS % (AUTO) 0 % (0-10); EOSINOPHILS # (AUTO) 0.1 10^3/uL (0.0-0.3); EOSINOPHILS % (AUTO) 0 % (0-10); HEMATOCRIT 36 % (35-52); HEMOGLOBIN 12.3 g/dL (11.5-16.0); LYMPHOCYTES # (AUTO) 1.4 10^3/uL (1.0-4.0); LYMPHOCYTES % (AUTO) 5 % (12-44); MEAN CORPUSCULAR HEMOGLOBIN 30 pg (25-34); MEAN CORPUSCULAR HGB CONC 34 g/dL (32-36); MEAN CORPUSCULAR VOLUME 89 fL (80-99); MEAN PLATELET VOLUME 8.5 fL (9.0-12.2); MONOCYTES # (AUTO) 2.9 10^3/uL (0.0-1.0); MONOCYTES % (AUTO) 10 % (0-12); NEUTROPHILS # (AUTO) 24.6 10^3/uL (1.8-7.8); NEUTROPHILS % (AUTO) 84 % (42-75); PLATELET COUNT 371 10^3/uL (130-400); WHITE BLOOD COUNT 29.1 10^3/uL (4.3-11.0)
--- NOTE | 2022-06-08 06:23 | ED GI ---
General Chief Complaint: Abdominal/GI Problems Stated Complaint: L SIDE ABD PAIN Nursing Triage Note: PATIENT STATES BACK PAIN ALL DAY YESTERDAY, LEFT SIDED ABDOMINAL PAIN OVERNIGHT. KEPT PATIENT FROM SLEEPING. PATIENT AMBULATORY TO ROOM, SLOWLY, HOLDING LEFT SIDE. PATIENT FAMILY STATES PATIENT IS SUPPOSE TO WEAR OXYGEN BUT DOES NOT. Source of Information: Patient, Family (daughter) History of Present Illness Date Seen by Provider: Jun 08, 2022 Time Seen by Provider: 05:51 Initial Comments 67-year-old female presenting with complaints of left-sided back pain during the day yesterday and then overnight developed left-sided abdominal pain. She has also had increased shortness of breath in the last day. She has chronic end- stage COPD but continues to smoke at least 1 pack of cigarettes a day. She has home oxygen but does not routinely wear it. She denies having diarrhea, nausea, vomiting, fever, chills, pain with urination, blood in her stool, blood in her urine. She states it feels like someone punched her in the gut. She is unsure of all of her medications that she takes. She did use her albuterol inhaler just prior to arriving in the emergency department but did not use a spacer to help get any of the medicine actually into her lungs. Timing/Duration: 1 Day Severity/Quality: Severe (Feels like somebody "punched her in the gut") Location: LUQ, Flank Radiation: Back Activities at Onset: None Modifying Factors: Worsens With Movement Associated Symptoms: Back Pain (left sided back pain yesterday /); No Chest Pain, No Diaphoresis, No Fever/Chills; Fatigue (unable to sleep overnight due to the pain); No Headache, No Heartburn, No Nausea/Vomiting, No Rash; Shortness of Air (chronic with end stage COPD and continued 1 ppd tobacco abuse); No Swelling/Mass in Abdomen, No Syncope Allergies and Home Medications Allergies Coded Allergies: No Known Drug Allergies (Unverified , 08/17/20) Patient Home Medication List Home Medication List Reviewed: Yes Amiodarone HCl (Amiodarone HCl) 200 Mg Tablet, 200 MG PO BID, (Reported) Entered as Reported by: VIVEK ANTUNEZ on 12/08/20 5204 Last Action: Last Taken Edited Amitriptyline HCl (Amitriptyline HCl) 10 Mg Tablet, 10 MG PO HS, (Reported) Entered as Reported by: VIVEK ANTUNEZ on 12/08/201652 Last Action: Last Taken Edited Apixaban (Eliquis) 5 Mg Tablet, 5 MG PO BID, (Reported) Entered as Reported by: VIVEK ANTUNEZ on 12/08/201652 Last Action: Last Taken Edited Azithromycin (Azithromycin) 500 Mg Tablet, 500 MG PO DAILY Prescribed by: PATO LAWLER on 06/08/22742 Budesonide/Glycopyr/Formoterol (Breztri Aerosphere Inhaler) 10.7 Gm Hfa.aer.ad, 2 PUFF INH BID, (Reported) Entered as Reported by: VIVEK ANTUNEZ on 12/08/201652 Last Action: Last Taken Edited Cariprazine Hydrochloride (Vraylar) 1.5 Mg Capsule, 1.5 MG PO HS, (Reported) Entered as Reported by: VIVEK ANTUNEZ on 08/03/19848 Last Action: Last Taken Edited Clopidogrel Bisulfate (Clopidogrel) 75 Mg Tablet, 75 MG PO HS, (Reported) Entered as Reported by: VIVEK ANTUNEZ on 12/08/201652 Last Action: Last Taken Edited Fish Oil/Dha/Epa (Fish Oil 1,200 mg Fish Oil) 1 Each Capsule, 1 EACH PO DAILY, (Reported) Entered as Reported by: VIVEK ANTUNEZ on 08/03/19848 Last Action: Last Taken Edited Losartan Potassium (Losartan Potassium) 25 Mg Tablet, 25 MG PO DAILY, (Reported) Entered as Reported by: DUNCAN RENNER on 06/08/22634 Last Action: New Order Lovastatin (Lovastatin) 20 Mg Tablet, 40 MG PO HS, (Reported) Entered as Reported by: VIVEK ANTUNEZ on 08/03/19848 Last Action: Last Taken Edited Megestrol Acetate (Megestrol Acetate) 20 Mg Tablet, 20 MG PO DAILY, (Reported) Entered as Reported by: DUNCAN RENNER on 06/08/22634 Last Action: New Order Meloxicam (Meloxicam) 15 Mg Tablet, 15 MG PO DAILY, (Reported) Entered as Reported by: DUNCAN RENNER on 06/08/22634 Last Action: New Order Montelukast Sodium (Montelukast Sodium) 10 Mg Tablet, 10 MG PO HS, (Reported) Entered as Reported by: VIVEK ANTUNEZ on 12/08/201652 Last Action: Last Taken Edited Multivitamin (Multivitamin) 1 Each Tablet, 1 EACH PO DAILY, (Reported) Entered as Reported by: VIVEK ANTUNEZ on 12/08/201652 Last Action: Last Taken Edited Oxycodone HCl (Oxycodone HCl) 10 Mg Tablet, 10 MG PO Q4 -6H, (Reported) Entered as Reported by: VIVEK ANTUNEZ on 12/08/201652 Last Action: Last Taken Edited Pramipexole Di-HCl (Pramipexole Dihydrochloride) 1 Mg Tablet, 1 MG PO HS, (Reported) Entered as Reported by: VIVEK ANTUNEZ on 08/03/19 0849 Last Action: Last Taken Edited Prednisone (Prednisone) 20 Mg Tab, 40 MG PO DAILY Prescribed by: PAOT LAWLER on 06/08/22 0743 Review of Systems Review of Systems Constitutional: No chills, No fever EENTM: No Symptoms Reported Respiratory: See HPI Cardiovascular: Denies Chest Pain Gastrointestinal: See HPI Genitourinary: Flank Pain (left side); Denies Pain Musculoskeletal: back pain (yesterday) Skin: no symptoms reported Psychiatric/Neurological: No Symptoms Reported Past Tahqruc-Yrpsjo-Dlvwys Hx Patient Social History Tobacco Use?: Yes Tobacco type used: Cigarettes Smoking Status: Current Everyday Smoker Immunizations Up To Date Tetanus Booster (TDap): More than 5yrs Influenza Vaccine Up-to-Date: Yes; Up-to-Date First/Initial COVID19 Vaccinat: JUNE 2020 Second COVID19 Vaccination Miguel: JUNE 2020 Seasonal Allergies Seasonal Allergies: No Past Medical History Surgery/Hospitalization HX: COPD, Atrial fibrillation, Tobacco Abuse, Small bowel obstruction Surgeries: Yes Brain Shunt, Orthopedic Respiratory: Yes Asthma, Pneumonia, COPD Cardiac: Yes Atrial Fibrillation, Hypertension Neurological: No Reproductive Disorders: No Genitourinary: No Gastrointestinal: Yes Obstructive Bowel Musculoskeletal: Yes Arthritis Endocrine: No HEENT: No Loss of Vision: Denies Hearing Impairment: Denies Cancer: No Psychosocial: Yes Anxiety, Depression Integumentary: Yes (bruising) Blood Disorders: No Family Medical History Cancer 09 SISTER (BREAST) Family history: Arthritis 03 FATHER 03 MOTHER Family history: Cardiovascular disease 03 FATHER 03 MOTHER Family history: Hypertension 03 MOTHER Heart disease 03 MOTHER History of - respiratory disease 03 FATHER 03 MOTHER 09 BROTHER 09 SISTER Myocardial infarction 03 FATHER 03 MOTHER No Family History of: Abdominal aortic aneurysm Alcoholism Congestive heart failure Dementia Family history: Allergy Family history: Alzheimer's disease Family history: Asthma Family history: Diabetes mellitus Family history: Glaucoma Family history: Thyroid disorder Hereditary disease History of - anemia Kidney disease Parkinson's disease Prostate cancer Psychotic disorder Seizure disorder Stroke Heart Disease, COPD, Hypertension Physical Exam Vital Signs Vital Signs - First Documented 06/08/22 06/08/22 05:55 06:02 Temp 36.9 Pulse 99 Resp 24 B/P (MAP) 163/70 (101) Pulse Ox 85 O2 Delivery Room Air O2 Flow Rate 2.00 Capillary Refill : Less Than 3 Seconds Height/Weight/BMI Height: 5'3.00" Weight: 100lbs. 0oz. 45.722654dx; 19.00 BMI Method:Stated General Appearance: mild distress (working hard to breath), other (chronically ill and appears older than stated age) Respiratory: chest non-tender, respiratory distress, decreased breath sounds, accessory muscle use, wheezing Cardiovascular: normal peripheral pulses, regular rate, rhythm Gastrointestinal: normal bowel sounds, soft, no pulsatile mass; No distended, No guarding, No rebound; tenderness (LUQ and left flank pain with palpation) Rectal: deferred Extremities: normal range of motion, normal capillary refill Neurologic/Psychiatric: alert, oriented x 3 Skin: warm/dry Images 1 - LUQ and Left flank pain with palpation Focused Exam Lactate Level 06/08/22 06:05: Lactic Acid Level 0.60 Lactic Acid Level Laboratory Tests Test 06/08/22 06:05 Lactic Acid Level 0.60 MMOL/L (0.50-2.00) Progress/Results/Core Measures Results/Orders Lab Results Laboratory Tests Test 06/08/22 06:00 06/08/22 06:05 Range/Units Urine Color YELLOW Urine Clarity CLOUDY Urine pH 6.0 5-9 Urine Specific [place] 1.020 1.016-1.022 Urine Protein TRACE H NEGATIVE Urine Glucose (UA) NEGATIVE NEGATIVE Urine Ketones TRACE H NEGATIVE Urine Nitrite NEGATIVE NEGATIVE Urine Bilirubin 1+ H NEGATIVE Urine Urobilinogen 0.2 < = 1.0 MG/DL Urine Leukocyte Esterase NEGATIVE NEGATIVE Urine RBC (Auto) NEGATIVE NEGATIVE Urine RBC 0-2 /HPF Urine WBC 0-2 /HPF Urine Squamous Epithelial Cells 2-5 /HPF Urine Renal Epithelial Cells RARE /HPF Urine Crystals NONE /LPF Urine Bacteria NEGATIVE /HPF Urine Casts PRESENT /LPF Urine Hyaline Casts 5-10 H /LPF Urine Mucus LARGE H /LPF Urine Culture Indicated NO White Blood Count 29.1 H 4.3-11.0 10^3/uL Red Blood Count 4.10 3.80-5.11 10^6/uL Hemoglobin 12.3 11.5-16.0 g/dL Hematocrit 36 35-52 % Mean Corpuscular Volume 89 80-99 fL Mean Corpuscular Hemoglobin 30 25-34 pg Mean Corpuscular Hemoglobin Concent 34 32-36 g/dL Red Cell Distribution Width 12.2 10.0-14.5 % Platelet Count 371 130-400 10^3/uL Mean Platelet Volume 8.5 L 9.0-12.2 fL Immature Granulocyte % (Auto) 1 % Neutrophils (%) (Auto) 84 H 42-75 % Lymphocytes (%) (Auto) 5 L 12-44 % Monocytes (%) (Auto) 10 0-12 % Eosinophils (%) (Auto) 0 0-10 % Basophils (%) (Auto) 0 0-10 % Neutrophils # (Auto) 24.6 H 1.8-7.8 10^3/uL Lymphocytes # (Auto) 1.4 1.0-4.0 10^3/uL Monocytes # (Auto) 2.9 H 0.0-1.0 10^3/uL Eosinophils # (Auto) 0.1 0.0-0.3 10^3/uL Basophils # (Auto) 0.1 0.0-0.1 10^3/uL Immature Granulocyte # (Auto) 0.2 H 0.0-0.1 10^3/uL Neutrophils % (Manual) 89 % Lymphocytes % (Manual) 1 % Monocytes % (Manual) 7 % Band Neutrophils 1 % Reactive Lymphocytes 2 % Toxic Granulation 2+ Platelet Estimate NORMAL Blood Morphology Comment NORMAL Sodium Level 134 L 135-145 MMOL/L Potassium Level 4.1 3.6-5.0 MMOL/L Chloride Level 98 98-107 MMOL/L Carbon Dioxide Level 23 21-32 MMOL/L Anion Gap 13 5-14 MMOL/L Blood Urea Nitrogen 26 H 7-18 MG/DL Creatinine 1.14 0.60-1.30 MG/DL Estimat Glomerular Filtration Rate 52 BUN/Creatinine Ratio 23 Glucose Level 129 H 70-105 MG/DL Lactic Acid Level 0.60 0.50-2.00 MMOL/L Calcium Level 9.1 8.5-10.1 MG/DL Corrected Calcium 9.3 8.5-10.1 MG/DL Total Bilirubin 0.3 0.1-1.0 MG/DL Aspartate Amino Transf (AST/SGOT) 21 5-34 U/L Alanine Aminotransferase (ALT/SGPT) 19 0-55 U/L Alkaline Phosphatase 97 40-136 U/L Total Protein 7.0 6.4-8.2 GM/DL Albumin 3.7 3.2-4.5 GM/DL Lipase 10 8-78 U/L My Orders Orders - PATO LAWLER MD Comprehensive Metabolic Panel (06/08/22 05:56) Lipase (06/08/22 05:56) Ua Culture If Indicated (06/08/22 05:56) Ed Iv/Invasive Line Start (06/08/22 05:56) Cbc With Automated Diff (06/08/22 05:56) Ct Abdomen/Pelvis Wo (06/08/22 05:56) Lactic Acid Analyzer (06/08/22 05:56) Albuterol/Ipra Inhalation Soln (Duoneb I (06/08/22 06:05) Svn Small Volume Nebulizer (06/08/22 06:05) Ns Iv 1000 Ml (Sodium Chloride 0.9%) (06/08/22 06:05) Ketorolac Injection (Toradol Injection) (06/08/22 06:05) Methylprednisolone Sod Succ (Solu-Medrol (06/08/22 06:05) O2 (06/08/22 06:05) Manual Differential (06/08/22 06:05) Ceftriaxone 1 Gm Pre-Mix (Rocephin 1 Gm (06/08/22 07:22) Azithromycin Tablet (Zithromax Tablet) (06/08/22 07:22) Vital Signs/I&O 06/08/22 06/08/22 05:55 06:02 Temp 36.9 Pulse 99 Resp 24 B/P (MAP) 163/70 (101) Pulse Ox 85 91 O2 Delivery Room Air Nasal Cannula O2 Flow Rate 2.00 Blood Pressure Mean: 101 Progress Progress Note #1: Progress Note Potential life-threatening diagnosis of ischemic bowel, diverticulitis, bowel perforation, kidney stone, renal failure, abdominal mass, small bowel obstruction. Obtain IV access to be able to send labs with a complete blood count to look for signs of infection or anemia, comprehensive metabolic profile to look at her electrolytes for her imbalance as well as renal failure or hepatic failure. Lipase to look for signs of pancreatitis, lactic acid to look for signs of ischemia or possible bowel obstruction. Urinalysis to look for signs of infection and her hydration status. CT scan of the abdomen and pelvis without IV contrast to look for possible kidney stone with her having pain starting in her back and then more in the left flank and upper quadrant overnight. She also had a history of small bowel obstruction treated with an NG tube in November 2020. I reviewed the hospitalist notes of Dr. Guerrier for her admission at that time. Administered normal saline 1 L IV fluid bolus for hydration, Toradol 15 mg IV for pain, Solu-Medrol 125 mg IV for her COPD and shortness of breath, DuoNeb breathing treatment nebulized for her shortness of breath. Progress Note #2: Time: 06:29 Progress Note Blood count shows WBC elevated to 29.1 with left shift of 84% neutrophils. Hgb at12.3 which is lower range normal. The elevated WBC count gives additional weight to possible infectious source for her symptoms. On my personal review and interpretation of her CT abdomen/pelvis without contrast she appears to have large amount of stool throughout colon. She has increased gas in bowel as well. Progress Note #3: Time: 06:52 Progress Note I reviewed radiologist report on CT scan abdomen/pelvis without contrast. They reported she had increased stool burden but no bowel obstruction. Left Lower lobe and lingula tree in bud infiltrate for possible infiltrate/infectious process. Lactic acid was not elevated at 0.7 which helps to rule out severe sepsis. Her comprehensive metabolic profile did not show any signs of acute organ failure. She had findings for the constipation and pneumonia in the left lower lobe. This would certainly help explain her left-sided pain going into her back. She did have improvement here with getting the IV Solu-Medrol as well as nebulizer breathing treatment. She felt improved enough that she wanted to try things at home rather than be admitted to the hospital for IV antibiotics. I told her that we could try a home course to see how she does with the caveat that if she was getting worse or the breathing was not improving, worsening abdominal pain, unable to keep anything down then she would need to be admitted to the hospital. She could be seen here and get transferred to a hospital or go directly to 1 such as [place] or [place]. Patient agreeable with going home rather than being admitted as she felt like she was improved. Stressed importance of using the oxygen on a more consistent basis at least for the next few days. She could have increased breathing treatments at least 4 times a day or up to every 4 hours if having worsening breathing. Continue with steroids for few days by mouth as well as give Rocephin 1 g IV here and oral Zithromax 500 mg po to get her started on antibiotic treatment for atypical pneumonia since she continues to smoke and is a COPD patient. Have her use MiraLAX ryqj-swo-jlmusoc 17 g every day mixed into 8 ounces of juice or liquid. She could use that 2-3 times a day if needed to help get her bowels moving better. Increase fluid intake to help with the hydration, breaking up congestion in her chest, constipation. Check back with her primary care doctor in terms of her breathing and pneumonia as well as c onstipation. If she again has worsening symptoms or is not improving then return so that she could be admitted to the hospital or go directly to an actual hospital rather than a stand-alone ED. use Mucinex mpur-qht-qhvrreg 2 tablets every 12 hours to help loosen cough and congestion. Increase the fluid intake to help with loosening congestion as well as the constipation. Diagnostic Imaging Diagonstic Imaging: CT Plain Films/CT/US/NM/MRI: abdomen, pelvis Comments [facility] [place], [place] NAME: ALBA VIERA [facility] REC#: [id number] PT STATUS: REG ER : 1955 PHYSICIAN: PATO LAWLER MD ADMIT DATE: 06/08/22/ER FS Draft Date of Exam:06/08/22 CT ABDOMEN/PELVIS WO PROCEDURE: CT abdomen and pelvis without contrast. TECHNIQUE: Multiple contiguous axial images were obtained through the abdomen and pelvis without the use of intravenous contrast. Auto Exposure Controls were utilized during the CT exam to meet ALARA standards for radiation dose reduction. INDICATION: Back pain. Left-sided abdominal pain this morning. COMPARISON: CT abdomen and pelvis IV contrast 12/08/2020. FINDINGS: Tree-in-bud opacities in the lingula and left lower lobe are partially visualized. Layering cholelithiasis versus sludge in the gallbladder which is otherwise unremarkable. The liver, pancreas, spleen, adrenals, kidneys, collecting systems and bladder are negative on this noncontrast exam. Reproductive structures are grossly unremarkable. No evidence of appendicitis. No free intraperitoneal air or fluid. No lymphadenopathy. No evidence of bowel obstruction. Large bowel stool throughout much of the colon. No acute osseous findings. IMPRESSION: 1. No acute CT findings in the abdomen or pelvis. 2. Tree-in-bud opacities in the visualized lingula and left lower lobe compatible with an infectious/inflammatory process. Recommend follow-up to resolution. 3. Large amount of stool throughout much of the colon may represent a degree of constipation. Dictated on workstation # [id number] Dict: 06/08/22629 Trans: 06/08/22 0643 [facility] [id number] Interpreted by: LUCIEN KELLOGG MD Electronically signed by: Reviewed: Reviewed by Me (I reviewed radiologist report at 0652) Departure Impression Primary Impression: Pneumonia of left lower lobe due to infectious organism Additional Impressions: Acute left flank pain Left upper quadrant abdominal pain Chronic respiratory failure with hypoxia, on home O2 therapy Constipation due to opioid therapy Disposition: 01 HOME, SELF-CARE Condition: Improved Departure-Patient Inst. Decision time for Depature: 07:42 Referrals: MATTHEW SON DO (PCP/Family) Primary Care Physician Patient Instructions: Constipation, Adult ED, Pneumonia, Adult ED Add. Discharge Instructions: Use your oxygen at all times to help treat pneumonia and COPD. This will help make your breathing easier. Do not use your oxygen if you are not smoking cigarettes as the oxygen can start on fire and caused an explosion. Take the antibiotic every day to help treat for infection and pneumonia. Use the steroids, prednisone 2 help with inflammation and shortness of breath from the COPD and pneumonia. Take MiraLAX aoka-dhk-qpuflto 17 g or 1 capful mixed in 8 ounces of liquid at least once a day. You can take this 2 or 3 times a day if having no bowel movements. Use your nebulizer breathing treatment at least 4 times a day for the next few days to help with the pneumonia and your shortness of breath. You could use the nebulizer up to every 4 hours at home in the next 2 days if needed for shortness of breath due to your pneumonia. Check back with Dr. Son for continued concerns and return or seek medical care if having worsening symptoms and not improving with treatment at home. Take Mucinex over the counter to help with loosening cough and congestion from your pneumonia. All discharge instructions reviewed with patient and/or family. Voiced understanding. Scripts Prednisone (Prednisone) 20 Mg Tab 40 MG PO DAILY for COPD/Pneumonia for 5 Days, #10 TAB 0 Refills Prov: PATO LAWLER MD 06/08/22 Azithromycin (Azithromycin) 500 Mg Tablet 500 MG PO DAILY for pneumonia for 5 Days, #5 TAB 0 Refills Prov: PATO LAWLER MD 06/08/22 PATO LAWLER MD Jun 08, 2022 06:22
[2022-06-08 06:29] LABS: CLARITY,URINE CLOUDY; COLOR,URINE YELLOW; GLUCOSE, URINE (UA) NEGATIVE (NEGATIVE); KETONES,URINE TRACE (NEGATIVE); LEUKOCYTE ESTERASE ,URINE NEGATIVE (NEGATIVE); NITRITE,URINE NEGATIVE (NEGATIVE); PROTEIN,URINE TRACE (NEGATIVE)
[2022-06-08] MEDS ORDERED: MELO15TA39 PO (06:35)
[2022-06-08] MEDS ORDERED: MEGE20TA3 PO (06:35)
[2022-06-08] MEDS ORDERED: LOSA25TA41 PO (06:35)
[2022-06-08 06:43] LABS: BACTERIA,URINE NEGATIVE /HPF; RBC,URINE 0-2 /HPF; RENAL EPITHELIAL CELLS,URINE RARE /HPF; WBC,URINE 0-2 /HPF
--- NOTE | 2022-06-08 06:44 | Diagnostic Imaging Report ---
PROCEDURE: CT abdomen and pelvis without contrast. TECHNIQUE: Multiple contiguous axial images were obtained through the abdomen and pelvis without the use of intravenous contrast. Auto Exposure Controls were utilized during the CT exam to meet ALARA standards for radiation dose reduction. INDICATION: Back pain. Left-sided abdominal pain this morning. COMPARISON: CT abdomen and pelvis IV contrast 12/08/2020. FINDINGS: Tree-in-bud opacities in the lingula and left lower lobe are partially visualized. Layering cholelithiasis versus sludge in the gallbladder which is otherwise unremarkable. The liver, pancreas, spleen, adrenals, kidneys, collecting systems and bladder are negative on this noncontrast exam. Reproductive structures are grossly unremarkable. No evidence of appendicitis. No free intraperitoneal air or fluid. No lymphadenopathy. No evidence of bowel obstruction. Large bowel stool throughout much of the colon. No acute osseous findings. IMPRESSION: 1. No acute CT findings in the abdomen or pelvis. 2. Tree-in-bud opacities in the visualized lingula and left lower lobe compatible with an infectious/inflammatory process. Recommend follow-up to resolution. 3. Large amount of stool throughout much of the colon may represent a degree of constipation. Dictated by: Dictated on workstation # [id number]
[2022-06-08 06:45] LABS: BILIRUBIN,URINE 1+ (NEGATIVE)
[2022-06-08 06:47] LABS: BILIRUBIN,TOTAL 0.3 MG/DL (0.1-1.0); CALCIUM 9.1 MG/DL (8.5-10.1); CREATININE SERUM 1.14 MG/DL (0.60-1.30); POTASSIUM 4.1 MMOL/L (3.6-5.0)
[2022-06-08 06:48] LABS: ALBUMIN 3.7 GM/DL (3.2-4.5)
[2022-06-08 06:50] LABS: BAND NEUTROPHILS 1 %; LYMPHOCYTES % (MANUAL) 1 %; MONOCYTES % (MANUAL) 7 %; NEUTROPHILS % (MANUAL) 89 %; REACTIVE LYMPHOCYTES 2 %
[2022-06-08 06:51] LABS: PLATELET ESTIMATE NORMAL; RBC MORPH NORMAL; TOXIC GRANULATION/VACUOLAZATIO 2+
[2022-06-08] MEDS ORDERED: AZITHROMYCIN 250 MG TAB (ZITHROMAX) PO STA (07:22)
[2022-06-08] MEDS ORDERED: cefTRIAXone 1 GM PRE-MIX 50 ML IV STA (07:22)
[2022-06-08] MEDS ORDERED: PRD20T PO (07:43)
[2022-06-08] MEDS ORDERED: AZIT500T9 PO (07:43)
== END 2022-06-08 08:00 | disposition home or self-care (01) ==
LOC: EDUNIT# 05:47 → ER FS 05:48
DX: K59.03 Drug induced constipation (principal); T40.2X5A Adverse effect of other opioids, initial encounter; J16.8 Pneumonia due to other specified infectious organisms; J96.11 Chronic respiratory failure with hypoxia; J44.9 Chronic obstructive pulmonary disease, unspecified; F17.210 Nicotine dependence, cigarettes, uncomplicated; Z99.81 Dependence on supplemental oxygen
CPT/HCPCS: 36415; 74176; 80053; 81000; 83605; 83690; 85007; 85027; 94640

== ENCOUNTER → 2022-06-21 | Outpatient (CLI) | payer MEDICARE ==
[~2022-06-21] MED LIST changes: +AZIT500T9 PO; +LOSA25TA41 PO; +MEGE20TA3 PO; +MELO15TA39 PO
--- NOTE | 2022-06-21 15:02 | Diagnostic Imaging Report ---
INDICATION: Pneumonia. COPD. COMPARISON: 12/08/2020 FINDINGS: Frontal and lateral views of the chest demonstrate normal heart size and pulmonary vascularity. The lungs are clear. There are no signs of infiltrate, pleural effusions or pneumothoraces. The visualized osseous structures show no acute abnormalities. IMPRESSION: 1. No acute process. No signs of infiltrates, effusions or pneumothoraces. Dictated by: Dictated on workstation # [id number]
== END ==
LOC: RAD FS 13:08
PROVIDERS: ATTEND Nurse Practitioner Family
DX: J15.9 Unspecified bacterial pneumonia (principal); J44.0 Chronic obstructive pulmonary disease with (acute) lower respiratory infection
CPT/HCPCS: 71046

== ENCOUNTER 2022-06-27 20:16 | Emergency (ER) | payer MEDICARE ==
[2022-06-27] MEDS ORDERED: RT-ALBUTEROL/IPRATROPIUM 3 ML (DUONEB) VIAL INH STA (20:30)
--- NOTE | 2022-06-27 21:08 | Diagnostic Imaging Report ---
PROCEDURE: CT head and CT cervical spine without contrast. TECHNIQUE: Multiple contiguous axial images were obtained through the brain and cervical spine without the use of intravenous contrast. Sagittal and coronal reformations through the cervical spine were then performed. Auto Exposure Controls were utilized during the CT exam to meet ALARA standards for radiation dose reduction. INDICATION: Trauma. Fall. Head pain and contusion. COMPARISON: CT head without contrast 08/17/2020. FINDINGS: CT HEAD: Moderate generalized parenchymal volume loss. Stable encephalomalacia in the right frontal and right parietal lobes. Right frontal craniotomy. No intracranial hemorrhage, mass effect, hydrocephalus or extra-axial fluid collection. No CT evidence of an acute territorial infarction. No acute osseous finding. Air-fluid level in the left maxillary sinus. Mastoids are unremarkable. CT CERVICAL SPINE: Postoperative finding of an anterior fusion at C4-C7 with C5 corpectomy and strut graft. Hardware components appear intact. No evidence of loosening. Normal alignment. Vertebral body heights are preserved. No fracture. Lung apices are clear. No acute finding in the visualized paravertebral soft tissues. Nonspecific hypoattenuating nodule in the right thyroid measuring 1.0 cm. IMPRESSION: 1. No acute intracranial CT finding. 2. Anterior fusion at C4-C7. No evidence of hardware failure. No cervical spine fracture. 3. Air-fluid level in the left maxillary sinus. No maxillofacial fracture is identified. Findings may be due to acute sinusitis. Dictated by: Dictated on workstation # [id number]
--- NOTE | 2022-06-27 21:23 | ED General ---
General Chief Complaint: General Problems/Pain Stated Complaint: FALLBACK PAIN Nursing Triage Note: Pt states she fell around 1900 tonight and hit her head. No loc and pt is alert and oriented on arrival. Pt also mentions she is supposed to wear oxygen at home but hasn't been wearing it and feels weak. Source of Information: Patient, Family History of Present Illness Date Seen by Provider: Jun 27, 2022 Time Seen by Provider: 20:21 Initial Comments 67-year-old female brought in by family due to concerns for patient falling and hitting her head. They state that she has been more lethargic and weak throughout the day. She is supposed to be wearing oxygen but does not wear it routinely at home. She does have a history of prior intracranial hemorrhage that required surgery. Since she had hit her head there were concerned about possible bleeding been present again. Patient has not had loss of consciousness. She continues to answer questions and is alert and oriented x3. She does have multiple skin tears on the bilateral arms that family had cleaned and dressed with bandages at home. Patient is denying having pain currently but did take 2 of her oxycodone pain pills prior to coming to the ED. Severity: Moderate Modifying Factors: improves with Medication Associated Systoms: No Chest Pain, No Cough, No Diaphoresis, No Fever/Chills, No Headaches, No Loss of Appetite, No Malaise, No Nausea/Vomiting, No Rash, No Seizure, No Shortness of Air, No Syncope; Weakness (Generalized) Allergies and Home Medications Allergies Coded Allergies: No Known Drug Allergies (Unverified , 08/17/20) Patient Home Medication List Home Medication List Reviewed: Yes Amiodarone HCl (Amiodarone HCl) 200 Mg Tablet, 200 MG PO BID, (Reported) Entered as Reported by: VIVEK ANTUNEZ on 12/08/201652 Amitriptyline HCl (Amitriptyline HCl) 10 Mg Tablet, 10 MG PO HS, (Reported) Entered as Reported by: VIVEK ANTUNEZ on 12/08/201652 Apixaban (Eliquis) 5 Mg Tablet, 5 MG PO BID, (Reported) Entered as Reported by: VIVEK ANTUNEZ on 12/08/201652 Azithromycin (Azithromycin) 500 Mg Tablet, 500 MG PO DAILY Prescribed by: PATO LAWLER on 06/08/22 0743 Budesonide/Glycopyr/Formoterol (Breztri Aerosphere Inhaler) 10.7 Gm Hfa.aer.ad, 2 PUFF INH BID, (Reported) Entered as Reported by: VIVEK ANTUNEZ on 12/08/201652 Cariprazine Hydrochloride (Vraylar) 1.5 Mg Capsule, 1.5 MG PO HS, (Reported) Entered as Reported by: VIVEK ANTUNEZ on 08/03/19848 Clopidogrel Bisulfate (Clopidogrel) 75 Mg Tablet, 75 MG PO HS, (Reported) Entered as Reported by: VIVEK ANTUNEZ on 12/08/201652 Fish Oil/Dha/Epa (Fish Oil 1,200 mg Fish Oil) 1 Each Capsule, 1 EACH PO DAILY, (Reported) Entered as Reported by: VIVEK ANTUNEZ on 08/03/19848 Losartan Potassium (Losartan Potassium) 25 Mg Tablet, 25 MG PO DAILY, (Reported) Entered as Reported by: DUNCAN RENNER on 06/08/2235 Lovastatin (Lovastatin) 20 Mg Tablet, 40 MG PO HS, (Reported) Entered as Reported by: VIVEK ANTUNEZ on 08/03/19848 Megestrol Acetate (Megestrol Acetate) 20 Mg Tablet, 20 MG PO DAILY, (Reported) Entered as Reported by: DUNCAN RENNER on 06/08/2235 Meloxicam (Meloxicam) 15 Mg Tablet, 15 MG PO DAILY, (Reported) Entered as Reported by: DUNCAN RENNER on 06/08/2235 Montelukast Sodium (Montelukast Sodium) 10 Mg Tablet, 10 MG PO HS, (Reported) Entered as Reported by: VIVEK ANTUNEZ on 12/08/201652 Multivitamin (Multivitamin) 1 Each Tablet, 1 EACH PO DAILY, (Reported) Entered as Reported by: VIVEK ANTUNEZ on 12/08/201652 Oxycodone HCl (Oxycodone HCl) 10 Mg Tablet, 10 MG PO Q4 -6H, (Reported) Entered as Reported by: VIVEK ANTUNEZ on 12/08/201652 Pramipexole Di-HCl (Pramipexole Dihydrochloride) 1 Mg Tablet, 1 MG PO HS, (Reported) Entered as Reported by: VIVEK ANTUNEZ on 08/03/19 0849 Prednisone (Prednisone) 20 Mg Tab, 40 MG PO DAILY Prescribed by: PATO LAWLER on 06/08/22 0743 Review of Systems Review of Systems Constitutional: No chills, No fever EENTM: No ear discharge, No ear pain, No epistaxis, No nose congestion Respiratory: short of breath (Chronic shortness of breath with COPD and continued tobacco use) Cardiovascular: no symptoms reported Gastrointestinal: no symptoms reported Genitourinary: no symptoms reported Musculoskeletal: No back pain, No neck pain Skin: see HPI, other (Multiple superficial abrasions.) Psychiatric/Neurological: See HPI Past Cpqvmkj-Wzvrxr-Eoafwh Hx Immunizations Up To Date Tetanus Booster (TDap): More than 5yrs First/Initial COVID19 Vaccinat: JUNE 2020 Second COVID19 Vaccination Miguel: JUNE 2020 Seasonal Allergies Seasonal Allergies: No Past Medical History Surgery/Hospitalization HX: COPD, Atrial fibrillation, Tobacco Abuse, Small bowel obstruction Surgeries: Yes Brain Shunt, Orthopedic Respiratory: Yes Asthma, Pneumonia, COPD Cardiac: Yes Atrial Fibrillation, Hypertension Neurological: No Reproductive Disorders: No Genitourinary: No Gastrointestinal: Yes Obstructive Bowel Musculoskeletal: Yes Arthritis Endocrine: No HEENT: No Loss of Vision: Denies Hearing Impairment: Denies Cancer: No Psychosocial: Yes Anxiety, Depression Integumentary: Yes (bruising) Blood Disorders: No Family Medical History Cancer 09 SISTER (BREAST) Family history: Arthritis 03 FATHER 03 MOTHER Family history: Cardiovascular disease 03 FATHER 03 MOTHER Family history: Hypertension 03 MOTHER Heart disease 03 MOTHER History of - respiratory disease 03 FATHER 03 MOTHER 09 BROTHER 09 SISTER Myocardial infarction 03 FATHER 03 MOTHER No Family History of: Abdominal aortic aneurysm Alcoholism Congestive heart failure Dementia Family history: Allergy Family history: Alzheimer's disease Family history: Asthma Family history: Diabetes mellitus Family history: Glaucoma Family history: Thyroid disorder Hereditary disease History of - anemia Kidney disease Parkinson's disease Prostate cancer Psychotic disorder Seizure disorder Stroke Heart Disease, COPD, Hypertension Physical Exam Vital Signs Vital Signs - First Documented 06/27/22 20:22 Temp 36.9 Pulse 81 Resp 20 B/P (MAP) 145/66 (92) Pulse Ox 90 O2 Delivery Room Air Capillary Refill : Less Than 3 Seconds Height, Weight, BMI Height: 5'3.00" Weight: 100lbs. 0oz. [id number]; 19.00 BMI Method:Stated General Appearance: No Apparent Distress, Chronically ill (Appears older than stated age) HEENT: PERRL/EOMI, TMs Normal; No Photophobia; Other (Negative finley sign, negative raccoon sign, no CSF otorrhea, no CSF rhinorrhea) Respiratory: Chest Non Tender, Lungs Clear, Decreased Breath Sounds, Wheezing Cardiovascular: Regular Rate, Rhythm, Normal Peripheral Pulses Gastrointestinal: Normal Bowel Sounds, No Pulsatile Mass, Non Tender, Soft Extremity: Normal Capillary Refill, Normal Inspection, No Pedal Edema Neurologic/Psychiatric: Alert, Oriented x3 Skin: Warm/Dry Progress/Results/Core Measures Suspected Sepsis SIRS Temperature: Pulse: 81 Respiratory Rate: 20 Blood Pressure 145 /66 Mean: 92 Results/Orders My Orders Orders - PATO LAWLER MD Ct Head/Cervical Spine Wo (06/27/22 20:30) Albuterol/Ipra Inhalation Soln (Duoneb I (06/27/22 20:30) Svn Small Volume Nebulizer (06/27/22 20:30) Vital Signs/I&O 06/27/22 06/27/22 20:22 21:25 Temp 36.9 36.9 Pulse 81 81 Resp 20 20 B/P (MAP) 145/66 (92) 145/66 Pulse Ox 90 90 O2 Delivery Room Air Room Air Capillary Refill : Less Than 3 Seconds Blood Pressure Mean: 92 Progress Note #1: Progress Note Potential life-threatening diagnosis of intracranial hemorrhage, skull fracture, cervical spine fracture. Obtain CT head and cervical spine without contrast. For her shortness of breath and diffuse wheezing administer DuoNeb breathing treatment x1. Progress Note #2: Progress Note Patient reports improved breathing after the breathing treatment. On my review of the CT head and cervical spine she did not have acute intracranial h emorrhage. Await radiology reading. As family had already cleaned and dressed the skin tears those are not reevaluated here. Progress Note #3: Progress Note I reviewed the radiologist reading on the CT head and cervical spine without contrast. They also did not see any acute intracranial process and no fractures. Updated patient and family and will discharge to home encouraged to use oxygen 24/7 to help with her fatigue and weakness. Check back through the clinic for continued concerns. Diagnostic Imaging Diagonstic Imaging: CT Plain Films/CT/US/NM/MRI: c-spine, head Comments [facility] [place], [place] NAME: ALBA VIERA [facility] REC#: [id number] PT STATUS: DEP ER : 1955 PHYSICIAN: PATO LAWLER MD ADMIT DATE: 06/27/22/ER FS Signed Date of Exam:06/27/22 CT HEAD/CERVICAL SPINE WO PROCEDURE: CT head and CT cervical spine without contrast. TECHNIQUE: Multiple contiguous axial images were obtained through the brain and cervical spine without the use of intravenous contrast. Sagittal and coronal reformations through the cervical spine were then performed. Auto Exposure Controls were utilized during the CT exam to meet ALARA standards for radiation dose reduction. INDICATION: Trauma. Fall. Head pain and contusion. COMPARISON: CT head without contrast 08/17/2020. FINDINGS: CT HEAD: Moderate generalized parenchymal volume loss. Stable encephalomalacia in the right frontal and right parietal lobes. Right frontal craniotomy. No intracranial hemorrhage, mass effect, hydrocephalus or extra-axial fluid collection. No CT evidence of an acute territorial infarction. No acute osseous finding. Air-fluid level in the left maxillary sinus. Mastoids are unremarkable. CT CERVICAL SPINE: Postoperative finding of an anterior fusion at C4-C7 with C5 corpectomy and strut graft. Hardware components appear intact. No evidence of loosening. Normal alignment. Vertebral body heights are preserved. No fracture. Lung apices are clear. No acute finding in the visualized paravertebral soft tissues. Nonspecific hypoattenuating nodule in the right thyroid measuring 1.0 cm. IMPRESSION: 1. No acute intracranial CT finding. 2. Anterior fusion at C4-C7. No evidence of hardware failure. No cervical spine fracture. 3. Air-fluid level in the left maxillary sinus. No maxillofacial fracture is identified. Findings may be due to acute sinusitis. Dictated by: Dictated on workstation # [id number] Dict: 06/27/222055 Trans: 06/27/222137 [facility] [id number] Interpreted by: LUCIEN KELLOGG MD Electronically signed by: LUCIEN KELLOGG MD 06/27/222137 Reviewed: Reviewed by Me Departure Impression Primary Impression: Chronic respiratory failure with hypoxia, on home O2 therapy Additional Impressions: Fall at home Qualified Codes: W19.XXXA - Unspecified fall, initial encounter; Y92.009 - Unspecified place in unspecified non-institutional (private) residence as the place of occurrence of the external cause Skin tear of left forearm without complication Qualified Codes: S51.812A - Laceration without foreign body of left forearm, initial encounter Skin tear of left elbow without complication Qualified Codes: S51.012A - Laceration without foreign body of left elbow, initial encounter Skin tear of right elbow without complication Qualified Codes: S51.011A - Laceration without foreign body of right elbow, initial encounter Disposition: 01 HOME, SELF-CARE Condition: Stable Departure-Patient Inst. Decision time for Depature: 21:22 Referrals: MATTHEW SON DO (PCP/Family) Primary Care Physician Patient Instructions: Abrasions ED, Preventing Falls ED, SKIN AVULSION Add. Discharge Instructions: Use your oxygen at home to help with your breathing. This will help make it easier for you to think more clearly and keep you from being this week. Stay well-hydrated and drink plenty of fluids. Follow-up with your regular provider for continued concerns. There were no signs of acute fractures or broken bones and no bleeding around the brain on the CT scan. All discharge instructions reviewed with patient and/or family. Voiced understanding. PATO LAWLER MD Jun 27, 2022 21:23
[2022-06-27 21:25] VITALS: BP 145/66
== END 2022-06-27 21:28 | disposition home or self-care (01) ==
LOC: EDUNIT# 20:16 → ER FS 20:20
DX: S51.011A Laceration without foreign body of right elbow, initial encounter (principal); S51.012A Laceration without foreign body of left elbow, initial encounter; S51.812A Laceration without foreign body of left forearm, initial encounter; J96.11 Chronic respiratory failure with hypoxia; Z28.310 Unvaccinated for COVID-19; W18.30XA Fall on same level, unspecified, initial encounter; Y92.009 Unspecified place in unspecified non-institutional (private) residence as the place of occurrence of the external cause
CPT/HCPCS: 70450; 72125

== ENCOUNTER 2022-07-05 12:19 | Emergency (ER) | payer MEDICARE ==
[~2022-07-05] VITALS: Ht 160 cm; Wt 54.4 kg
[2022-07-05 12:22] VITALS: BP 167/72
--- NOTE | 2022-07-05 12:30 | ED Integumentary General ---
General Stated Complaint: LT LEG LAC History of Present Illness Date Seen by Provider: Jul 05, 2022 Time Seen by Provider: 12:29 Initial Comments Patient presented for dressing change and wound check. Please see nurses documentation as this is a no charge visit Allergies and Home Medications Allergies Coded Allergies: No Known Drug Allergies (Unverified , 08/17/20) Patient Home Medication List Home Medication List Reviewed: Yes Amiodarone HCl (Amiodarone HCl) 200 Mg Tablet, 200 MG PO BID, (Reported) Entered as Reported by: VIVEK ANTUNEZ on 12/08/20 165 Amitriptyline HCl (Amitriptyline HCl) 10 Mg Tablet, 10 MG PO HS, (Reported) Entered as Reported by: VIVEK ANTUNEZ on 12/08/20 165 Apixaban (Eliquis) 5 Mg Tablet, 5 MG PO BID, (Reported) Entered as Reported by: VIVEK ANTUNEZ on 12/08/201652 Azithromycin (Azithromycin) 500 Mg Tablet, 500 MG PO DAILY Prescribed by: PATO LAWLER on 06/08/22 0743 Budesonide/Glycopyr/Formoterol (Breztri Aerosphere Inhaler) 10.7 Gm Hfa.aer.ad, 2 PUFF INH BID, (Reported) Entered as Reported by: VIVEK ANTUNEZ on 12/08/20 165 Cariprazine Hydrochloride (Vraylar) 1.5 Mg Capsule, 1.5 MG PO HS, (Reported) Entered as Reported by: VIVEK ANTUNEZ on 08/03/19 0849 Clopidogrel Bisulfate (Clopidogrel) 75 Mg Tablet, 75 MG PO HS, (Reported) Entered as Reported by: VIVEK ANTUNEZ on 12/08/20 1653 Fish Oil/Dha/Epa (Fish Oil 1,200 mg Fish Oil) 1 Each Capsule, 1 EACH PO DAILY, (Reported) Entered as Reported by: VIVEK ANTUNEZ on 08/03/19 0849 Losartan Potassium (Losartan Potassium) 25 Mg Tablet, 25 MG PO DAILY, (Reported) Entered as Reported by: DUNCAN RENNER on 06/08/22 0635 Lovastatin (Lovastatin) 20 Mg Tablet, 40 MG PO HS, (Reported) Entered as Reported by: VIVEK ANTUNEZ on 08/03/19 0849 Megestrol Acetate (Megestrol Acetate) 20 Mg Tablet, 20 MG PO DAILY, (Reported) Entered as Reported by: DUNCAN RENNER on 06/08/22 0635 Meloxicam (Meloxicam) 15 Mg Tablet, 15 MG PO DAILY, (Reported) Entered as Reported by: DUNCAN RENNER on 06/08/22 0635 Montelukast Sodium (Montelukast Sodium) 10 Mg Tablet, 10 MG PO HS, (Reported) Entered as Reported by: VIVEK ANTUNEZ on 12/08/20 165 Multivitamin (Multivitamin) 1 Each Tablet, 1 EACH PO DAILY, (Reported) Entered as Reported by: VIVEK ANTUNEZ on 12/08/201652 Oxycodone HCl (Oxycodone HCl) 10 Mg Tablet, 10 MG PO Q4 -6H, (Reported) Entered as Reported by: VIVEK ANTUNEZ on 12/08/201652 Pramipexole Di-HCl (Pramipexole Dihydrochloride) 1 Mg Tablet, 1 MG PO HS, (Reported) Entered as Reported by: VIVEK ANTUNEZ on 08/03/19 0849 Prednisone (Prednisone) 20 Mg Tab, 40 MG PO DAILY Prescribed by: PATO LAWLER on 06/08/22 0743 Review of Systems Review of Systems Constitutional: see HPI Past Ytkwpsk-Pwqqoi-Rvzwuv Hx Immunizations Up To Date Tetanus Booster (TDap): More than 5yrs First/Initial COVID19 Vaccinat: JUNE 2020 Second COVID19 Vaccination Miguel: JUNE 2020 Seasonal Allergies Seasonal Allergies: No Past Medical History Surgery/Hospitalization HX: COPD, Atrial fibrillation, Tobacco Abuse, Small bowel obstruction Surgeries: Yes Brain Shunt, Orthopedic Respiratory: Yes Asthma, Pneumonia, COPD Cardiac: Yes Atrial Fibrillation, Hypertension Neurological: No Reproductive Disorders: No Genitourinary: No Gastrointestinal: Yes Obstructive Bowel Musculoskeletal: Yes Arthritis Endocrine: No HEENT: No Loss of Vision: Denies Hearing Impairment: Denies Cancer: No Psychosocial: Yes Anxiety, Depression Integumentary: Yes (bruising) Blood Disorders: No Family Medical History Cancer 09 SISTER (BREAST) Family history: Arthritis 03 FATHER 03 MOTHER Family history: Cardiovascular disease 03 FATHER 03 MOTHER Family history: Hypertension 03 MOTHER Heart disease 03 MOTHER History of - respiratory disease 03 FATHER 03 MOTHER 09 BROTHER 09 SISTER Myocardial infarction 03 FATHER 03 MOTHER No Family History of: Abdominal aortic aneurysm Alcoholism Congestive heart failure Dementia Family history: Allergy Family history: Alzheimer's disease Family history: Asthma Family history: Diabetes mellitus Family history: Glaucoma Family history: Thyroid disorder Hereditary disease History of - anemia Kidney disease Parkinson's disease Prostate cancer Psychotic disorder Seizure disorder Stroke Heart Disease, COPD, Hypertension Physical Exam Vital Signs Vital Signs - First Documented 07/05/22 12:22 Temp 37.1 Pulse 78 Resp 17 B/P (MAP) 167/72 Pulse Ox 92 O2 Delivery Room Air Capillary Refill : General Appearance: WD/WN, no apparent distress Progress/Results/Core Measures Results/Orders Vital Signs/I&O 07/05/22 07/05/22 12:22 12:59 Temp 37.1 Pulse 78 85 Resp 17 16 B/P (MAP) 167/72 Pulse Ox 92 97 O2 Delivery Room Air Room Air Departure Impression Primary Impression: Visit for wound check Disposition: 01 HOME, SELF-CARE Condition: Stable Departure-Patient Inst. Referrals: MATTHEW SON DO (PCP) Primary Care Physician KEN LEON DO Jul 05, 2022 12:30
== END 2022-07-05 12:59 | disposition home or self-care (01) ==
LOC: EDUNIT# 12:19 → ER FS 12:20
DX: Z48.00 Encounter for change or removal of nonsurgical wound dressing (principal)
CPT/HCPCS: 99282

== ENCOUNTER 2023-02-04 15:02 | Emergency (ER) | payer MEDICARE ==
[~2023-02-04] VITALS: Ht 162 cm; Wt 54.4 kg
[2023-02-04] MEDS ORDERED: Tetanus/Diphtheria/Pertussis (Acell) ADULT Vaccine 0.5 ML IM ONE (15:30)
[2023-02-04 15:37] LABS: BASOPHILS # (AUTO) 0.1 10^3/uL (0.0-0.1); BASOPHILS % (AUTO) 1 % (0-10); EOSINOPHILS # (AUTO) 0.1 10^3/uL (0.0-0.3); EOSINOPHILS % (AUTO) 1 % (0-10); HEMATOCRIT 43 % (35-52); LYMPHOCYTES # (AUTO) 3.3 10^3/uL (1.0-4.0); LYMPHOCYTES % (AUTO) 28 % (12-44); MEAN CORPUSCULAR HEMOGLOBIN 30 pg (25-34); MEAN CORPUSCULAR HGB CONC 30 g/dL (32-36); MEAN CORPUSCULAR VOLUME 98 fL (80-99); MEAN PLATELET VOLUME 8.8 fL (9.0-12.2); MONOCYTES # (AUTO) 1.4 10^3/uL (0.0-1.0); MONOCYTES % (AUTO) 12 % (0-12); NEUTROPHILS # (AUTO) 6.9 10^3/uL (1.8-7.8); NEUTROPHILS % (AUTO) 58 % (42-75); PLATELET COUNT 399 10^3/uL (130-400); WHITE BLOOD COUNT 11.9 10^3/uL (4.3-11.0)
--- NOTE | 2023-02-04 15:37 | ED General ---
General Chief Complaint: Dizziness/Syncope Stated Complaint: FALL Nursing Triage Note: Pt presents to ER, via [facility], with reported seizure activity and fall. Per pts son, pt fell and was found "convulsing" on the floor. Son reports that pt was able to verbally communicate with him as she was "convulsing". Pt was given Ativan 1mg IVP by EMS AUTOGRAPHER. Upon arrival to ER, pt appears drowsy, but is able to answer questions appropriately. Source of Information: Patient, EMS, RN Notes Reviewed History of Present Illness Date Seen by Provider: Feb 04, 2023 Time Seen by Provider: 15:17 Initial Comments 68-year-old female patient with history of arthritis, asthma, COPD without home oxygen, brain shunt, pneumonia, atrial fibrillation on Eliquis, hypertension brought in by EMS because of dizziness and fall. Patient reported she tried to go to the bathroom and felt lightheadedness without chest pain and shortness of breath and focal neurodeficit and then passed out. Patient's son stated she heard a bump in the bathroom and saw her mother " convulsing " with "shaking and stiffness for 2 minutes without biting her tongue or bowel and urine incontinence. EMS gave the patient 1 mg of Ativan for possible seizure without having any seizure activity at arrival of EMS. Patient complaining of pain in her head and rated her pain 7/10. Patient does not know what was the last time she had a tetanus immunization. Patient denies chest pain, shortness of breath, focal neurodeficit, nausea, fever and chills, urinary symptoms, diarrhea and constipation. Patient has history of frequent falls. Allergies and Home Medications Allergies Coded Allergies: No Known Drug Allergies (Unverified , 08/17/20) Patient Home Medication List Home Medication List Reviewed: Yes Amiodarone HCl (Amiodarone HCl) 200 Mg Tablet, 200 MG PO BID, (Reported) Entered as Reported by: VIVEK ANTUNEZ on 12/08/201652 Amitriptyline HCl (Amitriptyline HCl) 10 Mg Tablet, 10 MG PO HS, (Reported) Entered as Reported by: VIVEK ANTUNEZ on 12/08/201652 Apixaban (Eliquis) 5 Mg Tablet, 5 MG PO BID, (Reported) Entered as Reported by: VIVEK ANTUNEZ on 12/08/201652 Azithromycin (Azithromycin) 500 Mg Tablet, 500 MG PO DAILY Prescribed by: PATO LAWLER on 06/08/22 0743 Budesonide/Glycopyr/Formoterol (Breztri Aerosphere Inhaler) 10.7 Gm Hfa.aer.ad, 2 PUFF INH BID, (Reported) Entered as Reported by: VIVEK ANTUNEZ on 12/08/201652 Cariprazine Hydrochloride (Vraylar) 1.5 Mg Capsule, 1.5 MG PO HS, (Reported) Entered as Reported by: VIVEK ANTUNEZ on 08/03/19 08 Clopidogrel Bisulfate (Clopidogrel) 75 Mg Tablet, 75 MG PO HS, (Reported) Entered as Reported by: VIVEK ANTUNEZ on 12/08/201652 Fish Oil/Dha/Epa (Fish Oil 1,200 mg Fish Oil) 1 Each Capsule, 1 EACH PO DAILY, (Reported) Entered as Reported by: VIVEK ANTUNEZ on 08/03/19 08 Losartan Potassium (Losartan Potassium) 25 Mg Tablet, 25 MG PO DAILY, (Reported) Entered as Reported by: DUNCAN RENNER on 06/08/2235 Lovastatin (Lovastatin) 20 Mg Tablet, 40 MG PO HS, (Reported) Entered as Reported by: VIVEK ANTUNEZ on 08/03/19848 Megestrol Acetate (Megestrol Acetate) 20 Mg Tablet, 20 MG PO DAILY, (Reported) Entered as Reported by: DUNCAN RENNER on 06/08/2235 Meloxicam (Meloxicam) 15 Mg Tablet, 15 MG PO DAILY, (Reported) Entered as Reported by: DUNCAN RENNER on 06/08/2235 Montelukast Sodium (Montelukast Sodium) 10 Mg Tablet, 10 MG PO HS, (Reported) Entered as Reported by: VIVEK ANTUNEZ on 12/08/201652 Multivitamin (Multivitamin) 1 Each Tablet, 1 EACH PO DAILY, (Reported) Entered as Reported by: VIVEK ANTUNEZ on 12/08/201652 Oxycodone HCl (Oxycodone HCl) 10 Mg Tablet, 10 MG PO Q4 -6H, (Reported) Entered as Reported by: VIVEK ANTUNEZ on 12/08/201652 Pramipexole Di-HCl (Pramipexole Dihydrochloride) 1 Mg Tablet, 1 MG PO HS, (Reported) Entered as Reported by: VIVEK ANTUNEZ on 08/03/19 0849 Prednisone (Prednisone) 20 Mg Tab, 40 MG PO DAILY Prescribed by: PATO LAWLER on 06/08/22 0743 Review of Systems Review of Systems Constitutional: see HPI EENTM: no symptoms reported Respiratory: no symptoms reported Cardiovascular: no symptoms reported Gastrointestinal: no symptoms reported Genitourinary: no symptoms reported Musculoskeletal: no symptoms reported Skin: see HPI Psychiatric/Neurological: See HPI Hematologic/Lymphatic: No Symptoms Reported Immunological/Allergic: no symptoms reported All Other Systems Reviewed Negative Unless Noted: Yes Past Ofnewow-Kdxtko-Abkznr Hx Patient Social History Tobacco Use?: Yes Immunizations Up To Date Tetanus Booster (TDap): More than 5yrs First/Initial COVID19 Vaccinat: JUNE 2020 Second COVID19 Vaccination Miguel: JUNE 2020 Seasonal Allergies Seasonal Allergies: No Past Medical History Surgery/Hospitalization HX: COPD, Atrial fibrillation, Tobacco Abuse, Small bowel obstruction Surgeries: Yes Brain Shunt, Orthopedic Respiratory: Yes Asthma, Pneumonia, COPD Cardiac: Yes Atrial Fibrillation, Hypertension Neurological: No Reproductive Disorders: No Genitourinary: No Gastrointestinal: Yes Obstructive Bowel Musculoskeletal: Yes Arthritis Endocrine: No HEENT: No Loss of Vision: Denies Hearing Impairment: Denies Cancer: No Psychosocial: Yes Anxiety, Depression Integumentary: Yes (bruising) Blood Disorders: No Family Medical History Cancer 09 SISTER (BREAST) Family history: Arthritis 03 FATHER 03 MOTHER Family history: Cardiovascular disease 03 FATHER 03 MOTHER Family history: Hypertension 03 MOTHER Heart disease 03 MOTHER History of - respiratory disease 03 FATHER 03 MOTHER 09 BROTHER 09 SISTER Myocardial infarction 03 FATHER 03 MOTHER No Family History of: Abdominal aortic aneurysm Alcoholism Congestive heart failure Dementia Family history: Allergy Family history: Alzheimer's disease Family history: Asthma Family history: Diabetes mellitus Family history: Glaucoma Family history: Thyroid disorder Hereditary disease History of - anemia Kidney disease Parkinson's disease Prostate cancer Psychotic disorder Seizure disorder Stroke Heart Disease, COPD, Hypertension Physical Exam Vital Signs Vital Signs - First Documented 02/04/23 02/04/23 15:09 18:18 Temp 37.1 Pulse 85 Resp 16 B/P (MAP) 156/70 (98) Pulse Ox 94 O2 Delivery Room Air O2 Flow Rate 2.00 Capillary Refill : Less Than 3 Seconds Height, Weight, BMI Height: 5'3.00" Weight: 100lbs. 0oz. 45.042529iv; 20.00 BMI Method:Stated General Appearance: Anxious, Mild Distress Eyes: Bilateral Eye Normal Inspection, Bilateral Eye PERRL, Bilateral Eye EOMI HEENT: PERRL/EOMI, Normal ENT Inspection, Pharynx Normal Neck: Full Range of Motion, Normal Inspection, Non Tender, Supple Respiratory: Chest Non Tender, No Accessory Muscle Use, No Respiratory Distress, Decreased Breath Sounds Cardiovascular: Regular Rate, Rhythm, No Edema, No Gallop Gastrointestinal: Normal Bowel Sounds, No Organomegaly, No Pulsatile Mass Back: Normal Inspection, No CVA Tenderness Extremity: Normal Capillary Refill, Other (Multiple old ecchymosis and several new abrasions and skin tears of the upper extremities) Neurologic/Psychiatric: Alert, Oriented x3 Skin: Normal Color Lymphatic: No Adenopathy Focused Exam Lactate Level 02/04/23 15:18: Lactic Acid Level 8.60*H Lactic Acid Level Laboratory Tests Test 02/04/23 15:18 Lactic Acid Level 8.60 MMOL/L (0.50-2.00) *H Progress/Results/Core Measures Suspected Sepsis SIRS Temperature: Pulse: 85 Respiratory Rate: 16 Laboratory Tests 02/04/23 15:18: White Blood Count 11.9H Blood Pressure 156 /70 Mean: 98 02/04/23 15:18: Lactic Acid Level 8.60*H Laboratory Tests 02/04/23 15:18: Creatinine 0.94, INR Comment 0.9, Platelet Count 399, Total Bilirubin 0.3 Results/Orders Lab Results Laboratory Tests Test 02/04/23 15:18 02/04/23 16:05 Range/Units White Blood Count 11.9 H 4.3-11.0 10^3/uL Red Blood Count 4.38 3.80-5.11 10^6/uL Hemoglobin 13.0 11.5-16.0 g/dL Hematocrit 43 35-52 % Mean Corpuscular Volume 98 80-99 fL Mean Corpuscular Hemoglobin 30 25-34 pg Mean Corpuscular Hemoglobin Concent 30 L 32-36 g/dL Red Cell Distribution Width 12.9 10.0-14.5 % Platelet Count 399 130-400 10^3/uL Mean Platelet Volume 8.8 L 9.0-12.2 fL Immature Granulocyte % (Auto) 1 % Neutrophils (%) (Auto) 58 42-75 % Lymphocytes (%) (Auto) 28 12-44 % Monocytes (%) (Auto) 12 0-12 % Eosinophils (%) (Auto) 1 0-10 % Basophils (%) (Auto) 1 0-10 % Neutrophils # (Auto) 6.9 1.8-7.8 10^3/uL Lymphocytes # (Auto) 3.3 1.0-4.0 10^3/uL Monocytes # (Auto) 1.4 H 0.0-1.0 10^3/uL Eosinophils # (Auto) 0.1 0.0-0.3 10^3/uL Basophils # (Auto) 0.1 0.0-0.1 10^3/uL Immature Granulocyte # (Auto) 0.1 0.0-0.1 10^3/uL Prothrombin Time 12.1 L 12.2-14.7 SEC INR Comment 0.9 0.8-1.4 Activated Partial Thromboplast Time 26 24-35 SEC Sodium Level 135 135-145 MMOL/L Potassium Level 4.1 3.6-5.0 MMOL/L Chloride Level 95 L 98-107 MMOL/L Carbon Dioxide Level 18 L 21-32 MMOL/L Anion Gap 22 H 5-14 MMOL/L Blood Urea Nitrogen 19 H 7-18 MG/DL Creatinine 0.94 0.60-1.30 MG/DL Estimat Glomerular Filtration Rate 65 BUN/Creatinine Ratio 20 Glucose Level 137 H 70-105 MG/DL Lactic Acid Level 8.60 *H 0.50-2.00 MMOL/L Calcium Level 9.3 8.5-10.1 MG/DL Corrected Calcium 9.3 8.5-10.1 MG/DL Magnesium Level 2.2 1.6-2.4 MG/DL Total Bilirubin 0.3 0.1-1.0 MG/DL Aspartate Amino Transf (AST/SGOT) 24 5-34 U/L Alanine Aminotransferase (ALT/SGPT) 18 0-55 U/L Alkaline Phosphatase 100 40-136 U/L Troponin I < 0.30 <0.30 NG/ML Pro-B-Type Natriuretic Peptide 84.9 <125.0 PG/ML Total Protein 7.4 6.4-8.2 GM/DL Albumin 4.0 3.2-4.5 GM/DL Serum Alcohol < 10 <10 MG/DL Urine Color YELLOW Urine Clarity CLEAR Urine pH 6.0 5-9 Urine Specific [place] 1.010 L 1.016-1.022 Urine Protein NEGATIVE NEGATIVE Urine Glucose (UA) NEGATIVE NEGATIVE Urine Ketones NEGATIVE NEGATIVE Urine Nitrite NEGATIVE NEGATIVE Urine Bilirubin NEGATIVE NEGATIVE Urine Urobilinogen 1.0 < = 1.0 MG/DL Urine Leukocyte Esterase NEGATIVE NEGATIVE Urine RBC (Auto) NEGATIVE NEGATIVE Urine RBC NONE /HPF Urine WBC 0-2 /HPF Urine Squamous Epithelial Cells NONE /HPF Urine Crystals NONE /LPF Urine Bacteria TRACE /HPF Urine Casts PRESENT /LPF Urine Hyaline Casts 0-2 H /LPF Urine Mucus SMALL H /LPF Urine Culture Indicated NO Urine Opiates Screen POSITIVE H NEGATIVE Urine Oxycodone Screen POSITIVE H NEGATIVE Urine Methadone Screen NEGATIVE NEGATIVE Urine Propoxyphene Screen NEGATIVE NEGATIVE Urine Barbiturates Screen NEGATIVE NEGATIVE Ur Tricyclic Antidepressants Screen POSITIVE H NEGATIVE Urine Phencyclidine Screen NEGATIVE NEGATIVE Urine Amphetamines Screen NEGATIVE NEGATIVE Urine Methamphetamines Screen NEGATIVE NEGATIVE Urine Benzodiazepines Screen NEGATIVE NEGATIVE Urine Cocaine Screen NEGATIVE NEGATIVE Urine Cannabinoids Screen NEGATIVE NEGATIVE My Orders Orders - RAFI DICKEY MD Cbc And Automated Diff (02/04/23 15:27) Magnesium (02/04/23 15:27) Chest 1 View Ap/Pa Only (02/04/23 15:27) Ekg Tracing (02/04/23 15:27) Comprehensive Metabolic Panel (02/04/23 15:27) Protime With Inr (02/04/23 15:27) Partial Thromboplastin Time (02/04/23 15:27) Monitor-Rhythm Ecg Trace Only (02/04/23 15:27) Ed Iv/Invasive Line Start (02/04/23 15:27) Troponin I Fs (02/04/23 15:27) Alcohol (02/04/23 15:27) Ua Culture If Indicated (02/04/23 15:27) Ct Head/Cervical Spine Wo (02/04/23 15:27) Probnp Fs (02/04/23 15:27) Drug Screen Stat (Urine) (02/04/23 15:27) Lactic Acid Analyzer (02/04/23 16:26) Vital Signs/I&O 02/04/23 02/04/23 02/04/23 02/04/23 15:09 17:34 18:18 18:53 Temp 37.1 Pulse 85 69 62 69 Resp 16 16 16 16 B/P (MAP) 156/70 (98) 148/74 (98) 134/64 (87) 130/60 (83) Pulse Ox 94 90 95 O2 Delivery Room Air Room Air Nasal Cannula Nasal Cannula O2 Flow Rate 2.00 Capillary Refill : Less Than 3 Seconds Blood Pressure Mean: 98 Progress Note : Progress Note Differential diagnosis included: New onset seizure, head injury, CVA, cardiac arrhythmia, dehydration, electrolyte imbalance Evaluation of patient ingestion 68-year-old female patient without history of seizure had episode of shaking and convulsing at home for 2 minutes. Patient was alert and oriented in ER and had few abrasion of extremity and chronic ecchymosis. CBC, CMP, troponin, lactic acid, UA, UDS, alcohol level, chest x- ray, EKG, CT head was ordered and reviewed by me and showed lactic acid of 8.6 with white count of 11.9 that on behalf of diagnosis of seizure. CT head was unremarkable but chest x-ray was questionable spot in left upper lung for possible infiltrate or edema. 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 With possible new onset of seizure and history of brain problem and her age decided to admit patient for more evaluation. Because of lack of neurologist at [facility] decided to transfer patient and patient requests that [facility]. [facility] was constipated at 1652 and an ER physician Dr. Bosch was consulted at 1657 who stated patient does not have criteria for trauma and is to admit to hospitalist. Dr. Soto on-call hospitalist at [facility] accepted transfer at 1711. Patient and her family updated about test results and plan of care and is for transfer and all questions was answered. Patient did not have seizure activity and her headache resolved without any treatment. ECG Initial ECG Impression Date: Feb 04, 2023 Initial ECG Impression Time: 15:37 Initial ECG Rate: 78 Initial ECG Rhythm: Normal Sinus Initial ECG Intervals: Normal Initial ECG Intervals EKG interpreted by me and showed normal sinus rhythm at rate of 78, incomplete right bundle branch block, nonspecific ST and T wave abnormalities, CO interval of 149 and QT of 321 and QTc of 354, QRS duration of 103, no acute ST and T wave elevation. Diagnostic Imaging Diagonstic Imaging: Xray, CT Plain Films/CT/US/NM/MRI: chest, head Comments 1 view chest x-ray interpreted by radiologist and reviewed by me and showed: [facility], [place] NAME: ALBA VIERA [facility] REC#: [id number] PT STATUS: REG ER : 1955 PHYSICIAN: RAFI DICKEY MD ADMIT DATE: 02/04/23/ER FS Signed Date of Exam:02/04/23 CHEST 1 VIEW AP/PA ONLY EXAMINATION: Chest, one view. HISTORY: Dizziness and fall. COMPARISON: 12/08/2020. FINDINGS: There is a vague opacity in the left upper zone with a left perihilar nodule. No pleural effusion or pneumothorax. Heart size is normal. IMPRESSION: 1. Vague left upper zone opacity with a perihilar nodule. Findings may represent asymmetric edema or pneumonia. Consider chest CT. Dictated by: Dictated on workstation # [id number] Dict: 02/04/23 1614 Trans: 02/04/238 [id number] Interpreted by: ANAND KING MD Electronically signed by: ANAND KING MD 02/04/238 CT head interpreted by radiologist and reviewed by me and showed: [facility] [place] NAME: ALBA VIERA [facility] REC#: [id number] PT STATUS: REG ER : 1955 PHYSICIAN: RAFI DICKEY MD ADMIT DATE: 02/04/23/ER FS Signed Date of Exam:02/04/23 CT HEAD/CERVICAL SPINE WO EXAMINATION: CT head and CT cervical spine without contrast. TECHNIQUE: Multiple contiguous axial images were obtained through the brain and cervical spine without the use of intravenous contrast. Sagittal and coronal reformations through the cervical spine were then performed. All CT scans use one or more of the following dose optimizing techniques: automated exposure control, MA and/or KvP adjustment based on patient size and exam type or iterative reconstruction. HISTORY: Head and neck pain after fall, dizziness, headache. COMPARISON: 06/27/2022. FINDINGS: HEAD: Mild diffuse cerebral volume loss with proportional enlargement of the ventricles and sulci. Stable right frontal lobe and bilateral occipital lobe encephalomalacia. No acute intracranial hemorrhage or abnormal extra-axial fluid collections are present. Calcification of the intracranial ICAs. No hyperdense vessel. Surgical changes of right frontal calvarium. The calvarium is otherwise intact. The mastoid air cells are clear. The visualized paranasal sinuses are clear. The orbits are normal. C-SPINE: Surgical and degenerative changes of the cervical spine. Vertebral body heights are maintained. There is straightening of the normal cervical lordosis, likely postoperative. No acute fracture, dislocation, or destructive osseous process. Multilevel facet hypertrophy without perched facets. There is multilevel cervical spondylosis. The paraspinous soft tissues are normal. The visualized thyroid gland is normal. The visualized lung apices are normal. IMPRESSION: 1. No acute intracranial abnormality. Mild volume loss with chronic encephalomalacia in the right frontal and bilateral posterior occipital lobes. 2. Degenerative and surgical changes of the cervical spine without acute osseous abnormality. Dictated by: Dictated on workstation # [id number] Dict: 02/04/235 Trans: 02/04/234 AS6 [id number] Interpreted by: DENNY ADAMS DO Electronically signed by: DENNY ADAMS DO 02/04/234 Departure Impression Primary Impression: New onset seizure Additional Impression: Abnormal chest x-ray Disposition: XFER SHT-TRM HOSP ([facility]) Condition: Improved Transfer Transfer Reason: Exceeds level of care Time Spoke to Accepting Phy: 17:[address] Garibay on-call hospitalist at [facility] accepted transfer at 1711. Transfer Facility: [facility] Method of Transfer: EMS Departure-Patient Inst. Referrals: MATTHEW SON DO (PCP/Family) Primary Care Physician RAFI DICKEY MD Feb 04, 2023 15:37
[2023-02-04 15:39] LABS: INR 0.9 (0.8-1.4); PROTHROMBIN TIME PATIENT 12.1 SEC (12.2-14.7)
[2023-02-04 15:46] LABS: ALANINE AMINOTRANSFERASE 18 U/L (0-55); ALKALINE PHOSPHATASE 100 U/L (40-136); BILIRUBIN,TOTAL 0.3 MG/DL (0.1-1.0); BUN/CREATININE RATIO 20; CALCIUM 9.3 MG/DL (8.5-10.1); CARBON DIOXIDE 18 MMOL/L (21-32); CHLORIDE 95 MMOL/L (98-107); CREATININE SERUM 0.94 MG/DL (0.60-1.30); GFR ESTIMATED 65; GLUCOSE 137 MG/DL (70-105); MAGNESIUM 2.2 MG/DL (1.6-2.4); POTASSIUM 4.1 MMOL/L (3.6-5.0); SODIUM 135 MMOL/L (135-145); TOTAL PROTEIN 7.4 GM/DL (6.4-8.2)
[2023-02-04 16:05] LABS: BILIRUBIN,URINE NEGATIVE (NEGATIVE); CLARITY,URINE CLEAR; COLOR,URINE YELLOW; GLUCOSE, URINE (UA) NEGATIVE (NEGATIVE); KETONES,URINE NEGATIVE (NEGATIVE); LEUKOCYTE ESTERASE ,URINE NEGATIVE (NEGATIVE); NITRITE,URINE NEGATIVE (NEGATIVE); PROTEIN,URINE NEGATIVE (NEGATIVE)
[2023-02-04 16:09] LABS: WBC,URINE 0-2 /HPF
[2023-02-04 16:10] LABS: BACTERIA,URINE TRACE /HPF; HYALINE CASTS, URINE 0-2 /LPF
[2023-02-04 16:16] LABS: AMPHETAMINE SCREEN, URINE NEGATIVE (NEGATIVE); COCAINE SCREEN URINE NEGATIVE (NEGATIVE); OPIATE SCREEN URINE POSITIVE (NEGATIVE); OXYCODONE STAT POSITIVE (NEGATIVE); TRICYCLIC ANTIDEPRESSANTS SCRE POSITIVE (NEGATIVE)
--- NOTE | 2023-02-04 16:16 | Diagnostic Imaging Report ---
EXAMINATION: Chest, one view. HISTORY: Dizziness and fall. COMPARISON: 12/08/2020. FINDINGS: There is a vague opacity in the left upper zone with a left perihilar nodule. No pleural effusion or pneumothorax. Heart size is normal. IMPRESSION: 1. Vague left upper zone opacity with a perihilar nodule. Findings may represent asymmetric edema or pneumonia. Consider chest CT. Dictated by: Dictated on workstation # [id number]
[2023-02-04 16:17] LABS: BARBITURATE SCREEN URINE NEGATIVE (NEGATIVE); CANNABINOID SCREEN, URINE NEGATIVE (NEGATIVE); METHADONE STAT NEGATIVE (NEGATIVE); PROPOXYPHENE STAT NEGATIVE (NEGATIVE)
--- NOTE | 2023-02-04 16:23 | Diagnostic Imaging Report ---
EXAMINATION: CT head and CT cervical spine without contrast. TECHNIQUE: Multiple contiguous axial images were obtained through the brain and cervical spine without the use of intravenous contrast. Sagittal and coronal reformations through the cervical spine were then performed. All CT scans use one or more of the following dose optimizing techniques: automated exposure control, MA and/or KvP adjustment based on patient size and exam type or iterative reconstruction. HISTORY: Head and neck pain after fall, dizziness, headache. COMPARISON: 06/27/2022. FINDINGS: HEAD: Mild diffuse cerebral volume loss with proportional enlargement of the ventricles and sulci. Stable right frontal lobe and bilateral occipital lobe encephalomalacia. No acute intracranial hemorrhage or abnormal extra-axial fluid collections are present. Calcification of the intracranial ICAs. No hyperdense vessel. Surgical changes of right frontal calvarium. The calvarium is otherwise intact. The mastoid air cells are clear. The visualized paranasal sinuses are clear. The orbits are normal. C-SPINE: Surgical and degenerative changes of the cervical spine. Vertebral body heights are maintained. There is straightening of the normal cervical lordosis, likely postoperative. No acute fracture, dislocation, or destructive osseous process. Multilevel facet hypertrophy without perched facets. There is multilevel cervical spondylosis. The paraspinous soft tissues are normal. The visualized thyroid gland is normal. The visualized lung apices are normal. IMPRESSION: 1. No acute intracranial abnormality. Mild volume loss with chronic encephalomalacia in the right frontal and bilateral posterior occipital lobes. 2. Degenerative and surgical changes of the cervical spine without acute osseous abnormality. Dictated by: Dictated on workstation # [id number]
[2023-02-04 22:15] VITALS: BP 140/66
== END 2023-02-04 22:15 | disposition short-term general hospital (02) ==
LOC: EDUNIT# 15:02 → ER FS 15:04
DX: R56.9 Unspecified convulsions (principal); R93.1 Abnormal findings on diagnostic imaging of heart and coronary circulation; I48.91 Unspecified atrial fibrillation; Z79.01 Long term (current) use of anticoagulants; Z20.822 Contact with and (suspected) exposure to COVID-19
CPT/HCPCS: 36415; 70450; 71045; 72125; 80053; 80306; 81000; 83605; 83735; 83880; 84484; 85025; 85610; 85730; 93041; 99285; G0480; 80320